=== PATIENT | female | born 1960 | race Hispanic/Latino ===

== ENCOUNTER 2017-02-24 22:50 | Inpatient (IN) | payer BC, OTHER ==
[2017-02-24 23:45] LABS: Hematocrit 29.2 % (36.0-47.0); Mean Platelet Volume 6.5 fL (7.4-10.4); Red Blood Cell (RBC) Count 2.68 mill/uL (4.20-5.40); White Blood Cell (WBC) Count 13.6 thou/uL (4.8-10.8)
[2017-02-24 23:53] LABS: PTT 48.1 SEC (22.9-36.1); Prothrombin Time 14.8 SEC (12.0-14.7)
--- NOTE | 2017-02-24 23:58 | RAD ---
CHEST ONE VIEW: History: Abdominal pain, bleeding. Comparison: 06-17-15 FINDINGS: The cardiac silhouette is magnified by projection. Pulmonary vasculature is unremarkable. Minimal sca rring is present at each lung base. There is no lobar consolidation or evidence of pneumothorax. IMPRESSION: 1. No active cardiopulmonary abnormalities are demonstrated. POS: [facility]
[2017-02-25] LABS: #Basophils 0.1 thou/uL (0.0-0.2); #Eosinphils 0.1 thou/uL (0.0-0.7); #Lymphocytes 1.9 thou/uL (1.20-3.40); #Monocytes 0.8 thou/uL (0.11-0.59); #Neutrophils 10.7 thou/uL (1.40-6.50); %Basophils 0.8 % (0.0-1.0); %Eosinophils 0.9 % (0.0-10.0); %Lymphocytes 14.2 % (21.0-51.0); %Monocytes 5.6 % (0.0-10.0); Macrocytosis SLIGHT = 6-15 cells (100X) (0-5/hpf)
[2017-02-25 00:03] LABS: ALT (SGPT) 41 U/L (8-55); AST (SGOT) 122 U/L (5-34); Alkaline Phosphatase 416 U/L (40-150); Anion Gap 23 mmol/L (10-20); BUN (Urea Nitrogen) 9 mg/dL (9.8-20.1); Bilirubin, Total 9.7 mg/dL (0.2-1.2); Calc. Creatinine Clearance 0 mL/min (70-130); Calcium 8.1 mg/dL (7.8-10.44); Carbon Dioxide 20 mmol/L (22-29); Chloride 97 mmol/L (98-107); Estimated GFR-MDRD 82; Globulin 4.2 g/dL (2.4-3.5); Lipase 124 U/L (8-78); Magnesium 1.1 mg/dL (1.6-2.6); Protein, Total 7.6 g/dL (6.0-8.3)
[2017-02-25] MEDS ORDERED: Dextrose 50% Abboject 50 ML SYRINGE ONE (00:25)
[2017-02-25] MEDS ORDERED: Magnesium Sulfate 2 GM/100 ML BAG ONE (00:25)
[2017-02-25] MEDS ORDERED: Potassium Chloride 20 MEQ TAB ONE (00:25)
[2017-02-25] MEDS ORDERED: Potassium Chloride 20 MEQ/100 ML PREMIX BAG ONE ×2 (00:25→01:56)
[2017-02-25] MEDS ORDERED: Dextrose 50% Abboject 50 ML SYRINGE SLOW IVP PRN (01:51)
[2017-02-25] MEDS ORDERED: Dextrose 5% in Water 1,000 ML IV PRN (01:51)
[2017-02-25 01:59] LABS: #Basophils 0.1 thou/uL (0.0-0.2); #Eosinphils 0.1 thou/uL (0.0-0.7); #Lymphocytes 1.8 thou/uL (1.20-3.40); #Monocytes 0.7 thou/uL (0.11-0.59); #Neutrophils 8.8 thou/uL (1.40-6.50); %Basophils 0.8 % (0.0-1.0); %Lymphocytes 15.7 % (21.0-51.0); %Monocytes 6.1 % (0.0-10.0); Hematocrit 27.5 % (36.0-47.0); Mean Platelet Volume 6.5 fL (7.4-10.4); Red Blood Cell (RBC) Count 2.53 mill/uL (4.20-5.40); White Blood Cell (WBC) Count 11.5 thou/uL (4.8-10.8)
[2017-02-25 02:27] LABS: Lactic Acid - Sepsis 3.1 mmol/L (0.5-2.2)
[2017-02-25 02:30] LABS: Anion Gap 20 mmol/L (10-20); BUN (Urea Nitrogen) 8 mg/dL (9.8-20.1); Calc. Creatinine Clearance 0 mL/min (70-130); Carbon Dioxide 21 mmol/L (22-29); Chloride 101 mmol/L (98-107); Estimated GFR-MDRD 85; Magnesium 2.3 mg/dL (1.6-2.6); Phosphorus 2.2 mg/dL (2.3-4.7)
[2017-02-25] MEDS ORDERED: Vancomycin HCl 1 GM in Premix Bag 1 BAG IVPB SCH (02:30)
[2017-02-25] MEDS ORDERED: Potassium Chloride 20 MEQ in Premix Bag 1 BAG IVPB SCH (02:45)
[2017-02-25 03:12] VITALS: BMI 21.8
--- NOTE | 2017-02-25 04:18 | HP ---
PRIMARY CARE PHYSICIAN: None. CHIEF COMPLAINT: Rectal bleeding. HISTORY OF PRESENT ILLNESS: Ms. Green is a pleasant 57-year-old lady who was seen at [facility] on 02/25/2017. She used to work as a nurse at this hospital. Her son 4 ye ars ago and her 2 years ago. Since then, she has been ingesting a lot of alcohol. She is currently not working. Two days ago, she decided to decrease her alcohol consumption. However, she became nauseous yesterda y and vomited. Today morning, she found that she was having a lot of rectal bleeding. She describes bright red blood. She therefore came to the emergency room. She reports that over the last several months, she has not been eating well. She reports that she do es not like the taste of meat. REVIEW OF SYSTEM The following complete review of systems was negative, unless otherwise mentioned in the HPI or below : Constitutional: Weight loss or gain, sense of well-being, ability to conduct usual activities, exerc ise tolerance. Skin/Breast: Rash, itching, changes in hair growth or loss, nail changes, breast lumps, tenderness, swelling, nipple discharge. Eyes: Vision, double vision, tearing, blind spots, pain. ENT/Mouth: Headaches (location, time of onset, duration, precipitating factors), vertigo, lightheade dness, injury. Vision, double vision, tearing, blind spots, pain, nose bleeding, colds, obstruction, discharge, dental difficulties, gingival bleeding, dentures, neck stiffness, pain, tenderness, jarret s in thyroid or other areas. Cardiovascular: Precordial pain, substernal distress, palpitations, syncope, dyspnea on exertion, or thopnea, nocturnal paroxysmal dyspnea, edema, cyanosis, hypertension, heart murmurs, varicosities, ph lebitis, claudication. Respiratory: Pain, shortness of breath, wheezing, stridor, cough, hemoptysis, fever or night sweats. Gastrointestinal: Poor appetite, dysphagia, indigestion, abdominal pain, heartburn, eructation, naus ea, vomiting, hematemesis, jaundice, constipation, or diarrhea, abnormal stools (leticia-colored, tarry, bloody, greasy, foul smelling), flatulence, hemorrhoids, recent changes in bowel habits. Genitourinary: Urgency, frequency, dysuria, nocturia, hematuria, polyuria, oliguria, unusual (or lenora nge in) color of urine, stones, hesitancy, change in size of stream, dribbling, acute retention or in continence, libido, potency. Musculoskeletal: Pain, swelling, redness or heat of muscles or joints, limitation, of motion, muscul ar weakness, atrophy, cramps. Neurologic/Psychiatric: Convulsions, paralyses, tremor, incoordination, paresthesias, difficulties w ith memory of speech, sensory or motor disturbances, or muscular coordination (ataxia, tremor), emoti onal problems, anxiety, depression, previous psychiatric care, unusual perceptions, hallucinations. Allergy/Immunologic: Skin rash, anemia, bleeding tendency, polydipsia, polyuria, intolerance to heat or cold. PAST MEDICAL HISTORY: Significant for asthma, hypothyroidism, hernia, H. pylori infection, and Clost ridium difficile colitis. PAST SURGICAL HISTORY: Significant for hernia repair and tubal ligation. PSYCHIATRIC HISTORY: Significant for depression. FAMILY HISTORY: Significant for lung cancer in her father. SOCIAL HISTORY: The patient reports drinking alcohol on a daily basis. She smokes half a pack of ci garettes a day. She denies recreational drug use. ALLERGIES: AVELOX, BACTRIM, CEFTRIAXONE, LEVOTHYROXINE, MOXIFLOXACIN, NICOTINE, QUINOLONES and ROCEP HIN. CURRENT MEDICATIONS: Include Synthroid 137 mcg daily, Effexor 150 mg daily, ProAir one puff every 8 hours as needed, Lasix 20 mg daily, and Aldactone 25 mg daily. PHYSICAL EXAMINATION: GENERAL: On examination, Ms. Green is awake and alert, not in acute distress. VITAL SIGNS: Blood pressure is 109/67, pulse is 79, she is breathing at rate of 18, and saturating 9 8% on room air. She is afebrile. She weighs 59 kilograms. EYES: The patient has scleral icterus, no conjunctival pallor. ENT: Moist mucosal membranes, no oropharyngeal erythema or exudates. NECK: Supple, nontender, normal range of movement. Trachea is midline. RESPIRATORY: Accessory muscles of breathing are not active. Chest wall movements are symmetrical bi laterally. Lungs are clear to auscultation without wheeze, rhonchi or crepitations. CARDIOVASCULAR: S1 and S2 are heard, regular. Peripheral pulses palpable. No carotid bruit, no per icardial rub. ABDOMEN: Distended, nontender, she has hepatomegaly, no splenomegaly, bowel sounds are heard. NEUROLOGIC: Cranial nerves II-XII are intact, deep tendon reflexes 2+. No flapping tremor. MUSCULOSKELETAL: Power is 5/5 in all 4 extremities. Normal range of movement at all major extremity joints. She appears to have decreased muscle mass in her extremities. SKIN: She has multiple skin lesions over her scalp and trunk, appear to be scabs as well as open wou nds, not draining pus at this time. PSYCHIATRIC: Normal mood, normal affect, patient is oriented to person, place, and time. LYMPHATIC: No cervical lymphadenopathy. LABORATORY DATA AND IMAGING: Ms. Green's labs and investigations were reviewed. She had an electr ocardiogram, which showed normal sinus rhythm, no ST changes to suggest an acute coronary syndrome. She also had a chest x-ray, which did not show any pulmonary infiltrates. Laboratory investigations show leukocytosis with 13,600 white cells, of which 78.4% are neutrophils, hemoglobin 9.7, last known hemoglobin 9.2 in 09/2016, normal platelet count, INR 1.1, normal sodium, decreased potassium of 2.9 , elevated anion gap of 23, decreased carbon dioxide level of 20, decreased glucose level of 47, norm al creatinine, decreased magnesium of 1.1, elevated total bilirubin of 9.7, elevated AST of 122, norm al ALT, elevated alkaline phosphatase of 416, decreased albumin of 3.4 and elevated lipase of 124. ASSESSMENT AND PLAN: Ms. Green is a pleasant 57-year-old lady who was seen at [facility] on 02/25/2017. Her problem list includes: 1. Rectal bleeding: Etiology is unclear. She does have a history of hemorrhoids. We will admit he r to the hospital and recheck her hemoglobin. GI Service has been consulted by the emergency room ph ysician. This appears to be a lower gastrointestinal bleed. At this point in time, I am not startin g her on Protonix or octreotide. 2. Hypokalemia: Potassium will be replaced and rechecked. 3. Hypomagnesemia: We will replace magnesium and recheck. 4. Hypoglycemia: Most likely secondary to liver disease. We will monitor Accu-Cheks for now. 5. Skin lesions: Probable Staphylococcal lesions. We will start her on empiric doxycycline. 6. History of alcohol abuse: We will start her on ASE protocol. 7. History of tobacco abuse: The patient has been counseled regarding tobacco and alcohol cessation . She appears to be allergic to NICOTINE, we will not start her on replacement therapy at this time. 8. Elevated anion gap: We will check lactate level. 9. Asthma: Appears to be stable. 10. Hypothyroidism: Check TSH level. Continue Synthroid. LEVEL OF RISK: Moderate. LEVEL OF COMPLEXITY: Moderate.
[2017-02-25] MEDS ORDERED: Lorazepam 0.5 MG TAB PO SCH (04:45)
[2017-02-25] MEDS ORDERED: POTASSIUM CHLORIDE IVPB SCH (08:15)
[2017-02-25] MEDS ORDERED: FLU VACC QS2017-18 36 mo. & older 0.5 ML SYRINGE IM ONE (09:00)
[2017-02-25 09:43] LABS: Hematocrit 24.6 % (36.0-47.0)
--- NOTE | 2017-02-25 10:24 | PDOC.EVN ---
Event Note - Event Note Event Note: Pt seen on rounds. admitted fredis with hematochezia. Pt states shehad a colonoscopy 2 months ago and asked if this could be done as an outpatient. i explained her Hgb drop and urged her to see what GI has to say first. i favor repeat since she now has bleeding. Pt agreed not to leave AMA for now. followup on GI results. hgb 9.7 to 9.1 since presentation
[2017-02-25] MEDS ORDERED: Ondansetron HCl/PF 4 MG/2 ML Vial IVP PRN (11:58)
[2017-02-25] MEDS ORDERED: Diazepam 5 MG TAB PO PRN (16:13)
[2017-02-25] MEDS ORDERED: Lorazepam 1 MG TAB PO PRN (16:15)
[2017-02-25] MEDS ORDERED: Thiamine HCl 200 MG/2 ML VIAL IM SCH (16:15)
[2017-02-25] MEDS ORDERED: Diazepam 5 MG TAB PO SCH (16:15)
[2017-02-25] MEDS ORDERED: Morphine PF 1 MG/ML SYR IVP PRN (16:17)
[2017-02-25 17:46] LABS: Hematocrit 26.7 % (36.0-47.0)
--- NOTE | 2017-02-25 20:39 | CON ---
DATE OF CONSULTATION: 02/25/2017 REQUESTING PHYSICIAN: Dr. Maria. REASON FOR CONSULTATION: Rectal bleeding. HISTORY OF PRESENT ILLNESS: Monse Green is a 57-year-old woman whom I first met over a year ago. She has had a rough several years with multiple deaths in the family and this turned to alcohol. O sandra the past year, it has become evident that she has developed alcoholic liver disease. She was adm itted here in September and had some ascites at that time underwent paracentesis, all consistent with alco holic liver disease without SBP. She was started on low dose diuretics. She has felt chronic anemia this year as well, her baseline hemoglobin is running in the 8-9 range. This is a macrocytic anemia , undoubtedly from alcohol toxicity and relatively poor nutrition. I did perform EGD and colonoscopy on her in the outpatient setting on 11/04/2016. The EGD showed some mild erosive gastritis, but no esophageal or gastric varices. The colonoscopy showed 2 polyps, which were removed as well as intelligence intern al hemorrhoids and was otherwise negative. Unfortunately, the patient has continued to drink alcohol. She quit for about 20 days, but for the p ast several weeks she has again been having anywhere from half a pint to a full pint of vodka. She i s trying to taper down slowly, but this does not really seem to be working. She says that her appeti te has just been poor in general for about the past month. A couple of days ago, she had an episode of rectal bleeding, this does happen off and on, usually associated with some mild perianal discomfor t and then yesterday she had some nausea and an episode of emesis, so presented here. She was found to be hypokalemic with potassium only 2.5. Initial hemoglobin was 9.7, but after some IV fluids, thi s went to 9.1 and further declined to 8.1 this morning. FOBT was positive. Her LFTs remain elevated to a greater degree than before with total bilirubin now up to 9.7, though INR and creatinine remain normal. Currently, she says she is feeling okay. She has not had any overt bleeding since arrival here. She is feeling hungry. She is actually wanting to leave the hospital. REVIEW OF SYSTEMS: Full review of systems including constitutional, head, eyes, ears, nose, throat, GI, , cardiovascular, respiratory, musculoskeletal, and neurologic systems is negative except as no eliane in the HPI. PAST MEDICAL HISTORY: Hypertension, depression, asthma, hypothyroidism, ongoing alcohol abuse, herni a surgery, prior history of H. pylori and peptic ulcer disease as a teenager, mild erosive gastritis on EGD 11/2016, colon polyps on 11/2016, internal hemorrhoids demonstrated on 11/2016, tubal ligation , and C. difficile colitis. FAMILY HISTORY: Positive for lung cancer, negative for liver disease. SOCIAL HISTORY: She smokes half pack of cigarettes per day. She continues to drink alcohol anywhere from half a pint to a full pint of vodka daily. No drug use. ALLERGIES: AVELOX, BACTRIM, CEFTRIAXONE, LEVOTHYROXINE, MOXIFLOXACIN, NICOTINE, QUINOLONES, and ROCE PHIN. OUTPATIENT MEDICATIONS: Synthroid 137 mcg daily, Effexor 150 mg daily, albuterol as needed, Lasix 20 mg daily, spironolactone 25 mg daily. PHYSICAL EXAMINATION: VITAL SIGNS: Temperature 98.8, blood pressure 110/59, pulse 81, 96% oxygen saturation on room air. GENERAL: Jaundiced 57-year-old woman, lying in bed comfortably, in no distress. MENTAL: She is alert and fully oriented, pleasant, conversational. SKIN: She has jaundice. EYES: Scleral icterus. Extraocular movements are intact. ENT: Mucous membranes moist, no oral lesions. LYMPH: No submandibular or supraclavicular lymphadenopathy. THYROID: Nontender to palpation. HEART: Regular rate and rhythm. LUNGS: Clear to auscultation bilaterally. ABDOMEN: Nondistended. There is some dullness to percussion in the flanks, which is likely that she has a small amount of ascites fluid. Nontender to palpation throughout. EXTREMITIES: No peripheral edema. VESSELS: Radial pulses 2+ bilaterally. NEUROLOGICAL: Cranial nerves II-XII intact bilaterally. No focal deficits. No asterixis. LABORATORY STUDIES: Hemoglobin initially 9.7, now 8.1 this morning. MCV elevated to 109. WBC 11.5, platelets 258. FOBT positive. Lipase 124, total bilirubin 9.7, alkaline phosphatase 416, AST 122, ALT 41, albumin 3.4. INR is only 1.1, lactic acid 2.3, sodium 139, potassium 2.5, BUN 8, creatinine 0.71. MELD score calculates out to 16. ASSESSMENT AND PLAN: 1. Chronic anemia. 2. Rectal bleeding. 3. Internal hemorrhoids. Overall, the patient's hemoglobin this presentation remains within her bas kelley, over the past year, which is in the 8-9 range. She has not had any significant overt bleeding since her arrival and she states that the rectal bleeding was mainly a couple of days ago. She had a recent endoscopy just 3 months ago with no colonic findings other than a couple of colon polyps and internal hemorrhoids. This is too late for post-polypectomy bleed. My impression is that her recen t bleeding has been hemorrhoidal in nature. We will not plan on any endoscopic investigations at thi s time. I do think she should stay the night and we should recheck H&H tomorrow. If stable, then no endoscopic investigation would be planned. 4. Alcoholic liver disease. This is a significant problem for her. She has been unable to stop dri nking despite multiple conversations over the past few months. LFTs remain elevated to a greater deg ree than last summer. That being said, it appears her liver synthetic function is good with normal I NR, albumin 3.4. Her renal function is preserved. There is no encephalopathy. There was no evidenc e of esophageal or gastric varices on recent EGD. I would recommend continuing on Lasix and spironol actone, but bumping up the spironolactone dose to 50 mg daily. This will hopefully help with her hyp okalemia as well. Obviously, the main thing would be to quit drinking alcohol completely. I was sandra y firm with her on this. I worry that her presentation will be far more severe if she continues like this. If H&H is stable tomorrow and no further new issues, then she could be potentially discharged from a GI perspective.
[2017-02-25] MEDS: Doxycycline 100 MG CAP PO SCH (21:51)
[2017-02-26] MEDS ORDERED: Diazepam 5 MG TAB PO PRN (04:00)
[2017-02-26] MEDS: Doxycycline 100 MG CAP PO SCH (05:24)
[2017-02-26 06:17] LABS: ALT (SGPT) 45 U/L (8-55); AST (SGOT) 158 U/L (5-34); Alkaline Phosphatase 453 U/L (40-150); Anion Gap 14 mmol/L (10-20); BUN (Urea Nitrogen) 5 mg/dL (9.8-20.1); Calc. Creatinine Clearance 71 mL/min (70-130); Calcium 8.7 mg/dL (7.8-10.44); Carbon Dioxide 23 mmol/L (22-29); Chloride 103 mmol/L (98-107); Estimated GFR-MDRD 78; Globulin 3.9 g/dL (2.4-3.5); Magnesium 1.3 mg/dL (1.6-2.6)
[2017-02-26] MEDS ORDERED: Folic Acid 1 MG TAB PO SCH (09:00)
[2017-02-26] MEDS ORDERED: Multivitamin W/ Minerals 1 TAB PO SCH (09:00)
[2017-02-26] MEDS ORDERED: Magnesium Oxide 400 MG TAB PO SCH (09:00)
[2017-02-26 12:12] VITALS: BP 123/67; TEMP 98.6
--- NOTE | 2017-02-27 01:53 | DIS ---
DISCHARGE DIAGNOSES: 1. Rectal bleeding, likely secondary to internal hemorrhoids. 2. Hypokalemia. 3. Hypomagnesemia. 4. Hypoglycemia, resolved. 5. Skin lesion. 6. History of alcohol abuse. 7. History of tobacco abuse. 8. Transaminitis secondary to alcohol abuse. 9. Elevated anion gap. 10. Hypothyroidism. 11. Asthma. HOSPITAL COURSE: While patient was in the hospital, the patient had her hemoglobin monitored while s he was here in the hospital. GI was also consulted for their expertise. The patient had actually un derwent an endoscopy approximately 3 months ago. Therefore, because of these and the high suspicious for internal hemorrhoids, GI felt there was not needed to do any further intervention at this time o ther than monitoring H and H overnight. The patient also was found to have hypoglycemia, which was t hought to be due to her liver disease, which had resolved. She also showed up with electrolyte abnor malities, which were corrected while she was here in the hospital. We continued to watch the patient 's H and H throughout the night for which stayed within normal range. GI was comfortable with sendin g her home pending stable H and H the following morning, which it was. The patient denied having any new symptoms, and there were no new findings on the day of discharge. Because the patient was doing quite well and there was no further rectal bleeding, we were comfortable discharging the patient parrish e to follow up with her primary care physician. Due to her liver disease, patient will have her [place] ctone increased. She was also educated on the importance of sticking to a strict diet as well as sta davey away from alcohol and being compliant with her medication as well as her followups as an outpati ent. She stated that she understood and agreed with everything that was discussed with her. All que stions were answered prior to discharge. DISCHARGE CONDITION: Improved when she first came in. DISCHARGE ACTIVITY: As tolerated. DISCHARGE DIET: Low salt diet. DISCHARGE MEDICATIONS: Please see discharge medication list. FOLLOWUP APPOINTMENT: The patient will follow up with her primary care physician in 1 week as well a s GI as per their recommendations. DISCHARGE TIME: Discharge time is greater than 30 minutes.
== END 2017-02-26 12:54 | disposition home or self-care (01) | DRG 395 ==
LOC: ERS 22:50 → 2NO 02-25 00:15
PROVIDERS: ADMIT Internal Medicine; ATTEND Internal Medicine
DX: K64.8 Other hemorrhoids (principal); E83.42 Hypomagnesemia; K70.9 Alcoholic liver disease, unspecified; E87.6 Hypokalemia; E16.2 Hypoglycemia, unspecified; F10.10 Alcohol abuse, uncomplicated; F17.210 Nicotine dependence, cigarettes, uncomplicated; E03.9 Hypothyroidism, unspecified; J45.909 Unspecified asthma, uncomplicated; L98.9 Disorder of the skin and subcutaneous tissue, unspecified; Z88.1 Allergy status to other antibiotic agents; Z88.8 Allergy status to other drugs, medicaments and biological substances
CPT/HCPCS: 36415; 36416; 71010; 80048; 80053; 82274; 83605; 83690; 83735; 84100; 85025; 85610; 85730; 86850; 86900; 86901; 90471; 90682; 90732; 93005; 96365; 96375; A4216; G0008; G0009; J3370; J3475; J3480; J7050; Q2036

== ENCOUNTER 2017-06-17 17:44 | Emergency (ER) | payer BC ==
[2017-06-17 18:18] LABS: #Basophils 0.1 thou/uL (0.0-0.2); #Eosinphils 0.1 thou/uL (0.0-0.7); #Lymphocytes 1.5 thou/uL (1.20-3.40); #Monocytes 0.7 thou/uL (0.11-0.59); #Neutrophils 9.2 thou/uL (1.40-6.50); %Basophils 0.8 % (0.0-1.0); %Eosinophils 0.7 % (0.0-10.0); %Lymphocytes 12.8 % (21.0-51.0); %Monocytes 5.8 % (0.0-10.0); %Neutrophils 79.9 % (42.0-75.0); Hemoglobin 11.8 g/dL (12.0-16.0); Mean Corpuscular HGB CONC 34.2 g/dL (32.0-36.0); Mean Corpuscular Hemoglobin 33.5 pg (27.0-31.0); Mean Corpuscular Volume 97.8 fl (81.0-99.0); Mean Platelet Volume 6.8 fL (7.4-10.4); Platelet Count 249 thou/uL (130-400); RBC Distribution Width 13.5 % (11.5-14.5); Red Blood Cell (RBC) Count 3.52 mill/uL (4.20-5.40); White Blood Cell (WBC) Count 11.5 thou/uL (4.8-10.8)
[2017-06-17 18:27] LABS: INR-International Normal Ratio 1.1; Prothrombin Time 14.4 SEC (12.0-14.7)
[2017-06-17 18:37] LABS: Alcohol 301 mg/dL (Less than 10); Anion Gap 19 mmol/L (10-20); BUN (Urea Nitrogen) 9 mg/dL (9.8-20.1); Calc. Creatinine Clearance 0 mL/min (70-130); Calcium 9.6 mg/dL (7.8-10.44); Carbon Dioxide 20 mmol/L (22-29); Chloride 104 mmol/L (98-107); Estimated GFR-MDRD 71; Glucose 107 mg/dL (70-105); Potassium 3.7 mmol/L (3.5-5.1); Sodium 139 mmol/L (136-145)
--- NOTE | 2017-06-17 18:40 | RAD ---
FRONTAL AND LATERAL IMAGING OF THE THORACIC SPINE: 06/17/17 COMPARISON: None. HISTORY: Fell off of a ladder. FINDINGS: Thoracic vertebral body height and alignment appears within normal limits. No anterolisthesis or retr olisthesis. No displaced fracture noted. IMPRESSION: No acute findings. POS: [facility]
--- NOTE | 2017-06-17 18:42 | RAD ---
TWO VIEWS OF THE LUMBAR SPINE: 06/17/17 COMPARISON: None. HISTORY: Fall with pain. FINDINGS: Five lumbar type vertebral bodies are present with intact pedicles on frontal imaging. Lateral imaging demonstrates normal vertebral body height and alignment aside from minimal anterior w edging of L1, likely on the basis of prior fracture or physiologic wedging. There is facet hypertroph y at the L5-S1 level. IMPRESSION: No evidence for acute fracture. POS: [facility]
--- NOTE | 2017-06-17 18:44 | RAD ---
THREE VIEWS OF THE SACRUM AND COCCYX: 06/17/17 COMPARISON: None. HISTORY: Fall, trauma, pain. FINDINGS: No widening of the sacroiliac joints of the pubic symphysis. The pelvic ring appears intact. The femo ral h patricia project normally over their respective acetabulum. No displaced fracture noted. IMPRESSION: No displaced fracture seen. POS: [facility]
--- NOTE | 2017-06-17 19:35 | CT ---
HEAD CT WITHOUT CONTRAST: DATE: 06/17/17. COMPARISON: 06/17/15. HISTORY: Trauma. TECHNIQUE: Serial axial CT imaging at 5 mm intervals from the vertex through the skull base without contrast. FINDINGS: Paranasal sinuses and mastoid air cells are well aerated. There is evidence of bilateral paranasal s inus surgery, stable. There is no displaced calvarial fracture. No intracranial hemorrhage, midline shift, or mass effect. Mild diffuse cerebral volume loss, stable . IMPRESSION: No intracranial hemorrhage or displaced calvarial fracture. POS: [facility]
--- NOTE | 2017-06-17 19:54 | CT ---
CERVICAL SPINE CT NONCONTRAST: 06/17/17 INDICATION: Posttraumatic injury, pain. FINDINGS: There is straightening of the normal cervical curvature. Craniocervical junction is intact. There is mild degenerative change present. IMPRESSION: No acute osseous abnormality cervical spine. POS: [facility]
== END 2017-06-17 19:35 | disposition home or self-care (01) ==
LOC: ERS 17:44
DX: S09.90XA Unspecified injury of head, initial encounter (principal); S30.0XXA Contusion of lower back and pelvis, initial encounter; F10.129 Alcohol abuse with intoxication, unspecified; J45.909 Unspecified asthma, uncomplicated; E03.9 Hypothyroidism, unspecified; F32.9 Major depressive disorder, single episode, unspecified; F17.200 Nicotine dependence, unspecified, uncomplicated; Z79.899 Other long term (current) drug therapy; Z71.6 Tobacco abuse counseling; W11.XXXA Fall on and from ladder, initial encounter
CPT/HCPCS: 36415; 70450; 72070; 72100; 72125; 72220; 80048; 80307; 85025; 85610; 99406

== ENCOUNTER 2017-06-24 00:32 | Emergency (ER) | payer BC ==
[2017-06-24 01:14] LABS: #Basophils 0.1 thou/uL (0.0-0.2); #Lymphocytes 2.3 thou/uL (1.20-3.40); #Monocytes 0.7 thou/uL (0.11-0.59); #Neutrophils 7.1 thou/uL (1.40-6.50); %Basophils 0.8 % (0.0-1.0); %Eosinophils 0.3 % (0.0-10.0); %Lymphocytes 22.3 % (21.0-51.0); %Monocytes 6.7 % (0.0-10.0); %Neutrophils 69.9 % (42.0-75.0); Hemoglobin 12.4 g/dL (12.0-16.0); Mean Corpuscular Hemoglobin 32.9 pg (27.0-31.0); Mean Corpuscular Volume 96.9 fl (81.0-99.0); Mean Platelet Volume 6.2 fL (7.4-10.4); Platelet Count 182 thou/uL (130-400); RBC Distribution Width 13.5 % (11.5-14.5); Red Blood Cell (RBC) Count 3.75 mill/uL (4.20-5.40); White Blood Cell (WBC) Count 10.2 thou/uL (4.8-10.8)
[2017-06-24 01:29] LABS: Acetaminophen Less than 6.0 mcg/mL (10.0-30.0); Alcohol 330 mg/dL (Less than 10); Salicylate Less than 8.0 mg/dL (15.0-30.0)
[2017-06-24 01:34] LABS: ALT (SGPT) 31 U/L (8-55); AST (SGOT) 101 U/L (5-34); Albumin 4.1 g/dL (3.5-5.0); Alkaline Phosphatase 332 U/L (40-150); Anion Gap 17 mmol/L (10-20); BUN (Urea Nitrogen) 9 mg/dL (9.8-20.1); Bilirubin, Total 2.1 mg/dL (0.2-1.2); Calc. Creatinine Clearance 0 mL/min (70-130); Calcium 10.1 mg/dL (7.8-10.44); Carbon Dioxide 26 mmol/L (22-29); Chloride 105 mmol/L (98-107); Estimated GFR-MDRD 73; Globulin 4.3 g/dL (2.4-3.5); Glucose 85 mg/dL (70-105); Potassium 3.7 mmol/L (3.5-5.1); Protein, Total 8.4 g/dL (6.0-8.3); Sodium 144 mmol/L (136-145)
[2017-06-24 01:51] LABS: Bilirubin Negative (Negative); Blood, Urine Negative (Negative); Clarity CLEAR (Clear); Glucose, Urine (Dipstick) Negative (Negative); Leukocyte Negative (Negative); Nitrite Negative (Negative); Protein, Urine (Dipstick) Negative (Neg-Trace); Specific Gravity, Urine 1.006 (1.002-1.036); Urobilinogen 0.2 mg/dL (0.2-1.0); pH, Urine 6.5 (5.0-9.0)
[2017-06-24 01:59] LABS: Medtox Reader # READER 1; THC/Cannabinoid Screen Detected (NotDetected)
[2017-06-24 02:00] LABS: Amphetamine Not Detected (NotDetected); Barbiturates Screen Not Detected (NotDetected); Benzodiazepine Screen Detected (NotDetected); Cocaine Metabolite Screen Not Detected (NotDetected); Medtox Control Line Valid? VALID (VALID); Methadone Not Detected (NotDetected); Methamphetamine Not Detected (NotDetected); Opiate Screen Not Detected (NotDetected); Oxycodone Screen Not Detected (NotDetected); Phencyclidine (PCP) Not Detected (NotDetected); Tricyclic Screen Not Detected (NotDetected)
[2017-06-24] MEDS ORDERED: Ibuprofen 200 MG TAB ONE (02:49)
--- NOTE | 2017-06-24 07:40 | CT ---
PRELIMINARY REPORT/[facility]/EMERGENCY AFTER HOURS PROCEDURE: EXAM: CT Head Without Intravenous Contrast EXAM DATE/TIME: Exam ordered 06/24/2017 1:41 AM CLINICAL HISTORY: 57 years old, female; Injury or trauma; Fall; Follow-up exam; Abrasion; Not specified; Patient HX: Er 8; , Headache; Patient reports recent fall and evaluation in er. Presents today due to concern for " blood clots in head". Denies fall since time of discharge. Denies si/hi. HX of alcoholism, no HX of w ithdrawls/dts/seizures. Last drink at 2300 today. Drinks 1/2 liter of hard liquor per day. TECHNIQUE: Axial computed tomography images of the head/brain without intravenous contrast. COMPARISON: No relevant prior studies available. FINDINGS: Brain: Mild generalized volume loss of the brain. No hemorrhage. No significant white matter disease. Ventricles: Unremarkable. No ventriculomegaly. Bones/joints: Unremarkable. No acute fracture. Soft tissues: Unremarkable. Sinuses: Unremarkable as visualized. No acute sinusitis. Mastoid air cells: Unremarkable as visualized. No mastoid effusion. IMPRESSION: No acute findings. Thank you for allowing us to participate in the care of your patient. Dictated and Authenticated by: Yehuda Alvarez MD 06/24/2017 2:20 AM Central Time ([place] & [place]) FINAL INTERPRETATION HEAD CT WITHOUT CONTRAST: 06/24/2017 COMPARISON: 06/17/2017 HISTORY: Trauma, pain, fall. FINDINGS: I agree with the preliminary [facility] report by Dr. Alvarez. Imaged paranasal sinuses/mastoid air cells are well-aerated. No displaced calvarial fracture. There is no intracranial hemorrhage, midline shift, or mass effect. There is mild cerebral volume loss. IMPRESSION: No intracranial hemorrhage or displaced calvarial fracture. Code QA. POS: [facility]
--- NOTE | 2017-06-24 07:54 | CT ---
PRELIMINARY REPORT/[facility]/EMERGENCY AFTER HOURS PROCEDURE: EXAM: CT Cervical Spine Without Intravenous Contrast EXAM DATE/TIME: Exam ordered 06/24/2017 1:39 AM CLINICAL HISTORY: 57 years old, female; Injury or trauma; Fall; Follow-up exam; Abrasion; Patient HX: Er 8; , Headache; Patient reports recent fall and evaluation in er. Presents today due to concern for "blood clots in head". Denies fall since time of discharge. Denies si/hi. HX of alcoholism, no HX of withdrawls/dts/seizures. Last drink at 2300 today. Drinks 1/2 liter of hard liquor per day. TECHNIQUE: Axial computed tomography images of the cervical spine without intravenous contrast. Coronal and sagittal reformatted images were created and reviewed. COMPARISON: No relevant prior studies available. FINDINGS: Vertebrae: Unremarkable. No acute fracture. Discs/spinal canal/neural foramina: No acute findings. No spinal canal stenosis. Soft tissues: Unremarkable. Lung apices: Unremarkable as visualized. IMPRESSION: Normal cervical spine CT. Thank you for allowing us to participate in the care of your patient. Dictated and Authenticated by: Yehuda Alvarez MD 06/24/2017 2:17 AM Central Time ([place] & [place]) FINAL REPORT EXAM: CT CERVICAL SPINE WITHOUT CONTRAST COMPARISON: 06/17/2017 TECHNIQUE: Noncontrast cervical spine CT is performed in the axial plane. Sagittal and coronal reformatted imag es are submitted for interpretation. FINDINGS: This report is in agreement with the preliminary report by [facility]. Cervical alignment and vertebral bod y height is maintained. No fracture. No significant interval change. POS: [facility]
== END 2017-06-24 03:00 | disposition home or self-care (01) ==
LOC: ERS 00:32
DX: G44.309 Post-traumatic headache, unspecified, not intractable (principal); F10.229 Alcohol dependence with intoxication, unspecified; F41.9 Anxiety disorder, unspecified; J45.909 Unspecified asthma, uncomplicated; E03.9 Hypothyroidism, unspecified; F32.9 Major depressive disorder, single episode, unspecified; F17.210 Nicotine dependence, cigarettes, uncomplicated; Z79.899 Other long term (current) drug therapy; Y90.8 Blood alcohol level of 240 mg/100 ml or more
CPT/HCPCS: 36415; 70450; 72125; 80053; 80306; 80307; 81003; 82140; 85025; 96360; 96361

== ENCOUNTER 2017-10-25 01:54 | Emergency (ER) | payer BC, SELFPAY ==
--- NOTE | 2017-10-25 09:29 | RAD ---
PA CHEST AND 2 VIEWS LEFT RIBS: Date: 10/25/17 PROVIDED CLINICAL HISTORY: Pain status post injury. FINDINGS: Comparison made with chest radiograph dated 02/24/17. Cardiac and mediastinal silhouette is within normal limits. No focal consolidation, pleural fluid, or pneumothorax apparent. No evidence for displaced left-sided rib fracture. IMPRESSION: No evidence for an acute process. POS: [facility]
== END 2017-10-25 06:15 | disposition left against medical advice (07) ==
LOC: ERS 01:54
DX: Z53.21 Procedure and treatment not carried out due to patient leaving prior to being seen by health care provider (principal)
CPT/HCPCS: 93005

== ENCOUNTER 2018-05-16 10:04 | Emergency (ER) | payer SELFPAY ==
[2018-05-16] MEDS ORDERED: Fentanyl 100 MCG/2 ML VIAL ONE (10:40)
[2018-05-16] MEDS ORDERED: Ondansetron PF 4 MG/2 ML Vial ONE (10:40)
[2018-05-16 10:59] LABS: #Basophils 0.1 thou/uL (0.0-0.2); #Eosinphils 0.1 thou/uL (0.0-0.7); #Lymphocytes 1.4 thou/uL (1.20-3.40); #Monocytes 0.6 thou/uL (0.11-0.59); #Neutrophils 5.8 thou/uL (1.40-6.50); %Basophils 1.3 % (0.0-1.0); %Eosinophils 0.8 % (0.0-10.0); %Lymphocytes 17.9 % (21.0-51.0); %Monocytes 7.6 % (0.0-10.0); %Neutrophils 72.5 % (42.0-75.0); Hemoglobin 10.8 g/dL (12.0-16.0); Mean Corpuscular HGB CONC 33.2 g/dL (32.0-36.0); Mean Corpuscular Hemoglobin 35.7 pg (27.0-31.0); Mean Platelet Volume 7.3 fL (7.4-10.4); Platelet Count 120 thou/uL (130-400); RBC Distribution Width 13.2 % (11.5-14.5); Red Blood Cell (RBC) Count 3.01 mill/uL (4.20-5.40); White Blood Cell (WBC) Count 8.1 thou/uL (4.8-10.8)
[2018-05-16 11:20] LABS: ALT (SGPT) 47 U/L (8-55); AST (SGOT) 184 U/L (5-34); Albumin 3.8 g/dL (3.5-5.0); Alkaline Phosphatase 201 U/L (40-150); Anion Gap 18 mmol/L (10-20); BUN (Urea Nitrogen) 19 mg/dL (9.8-20.1); Bilirubin, Total 5.9 mg/dL (0.2-1.2); Calc. Creatinine Clearance 0 mL/min (70-130); Calcium 8.9 mg/dL (7.8-10.44); Carbon Dioxide 19 mmol/L (22-29); Chloride 102 mmol/L (98-107); Estimated GFR-MDRD 58; Globulin 3.9 g/dL (2.4-3.5); Glucose 88 mg/dL (70-105); Lipase 57 U/L (8-78); Potassium 3.7 mmol/L (3.5-5.1); Protein, Total 7.7 g/dL (6.0-8.3); Sodium 135 mmol/L (136-145)
[2018-05-16 11:43] LABS: Platelet Morphology Comment Appears Decreased
[2018-05-16 11:44] LABS: Macrocytosis SLIGHT = 6-15 cells (100X) (0-5/hpf)
--- NOTE | 2018-05-16 11:58 | ULT ---
ULTRASOUND GALLBLADDER: Date: 05/16/18 HISTORY: Right upper quadrant pain. Cirrhosis. COMPARISON: CT dated 09/23/16. TECHNIQUE: Real-time Kothari scale and color evaluation of the right upper quadrant of the abdomen was performed. FINDINGS: The pancreas is not well seen. There is diffuse increased hepatic echotexture with coarsening. Liver measures 18.0 cm in length. Portal vein patent with antegrade flow. Common bile duct measures 6.0 mm, normal. Gallbladder wall thickness is normal. There is some layering debris and sludge within the gallbladder . No pericholecystic fluid. Right kidney measures 9.3 x 4.1 x 4.5 cm. No renal mass, hydronephrosis, or abnormal calcifications. Sonographic Snider's sign is negative. IMPRESSION: 1. Hepatic cirrhosis. 2. Gallbladder sludge. No evidence for cholecystitis. POS: [facility]
[2018-05-16 13:55] LABS: Bilirubin Moderate (Negative); Blood, Urine Negative (Negative); Clarity CLOUDY (Clear); Glucose, Urine (Dipstick) Negative (Negative); Leukocyte Moderate (Negative); Nitrite Negative (Negative); Protein, Urine (Dipstick) 30 mg/dL (Neg-Trace); Specific Gravity, Urine 1.014 (1.002-1.036); pH, Urine 5.5 (5.0-9.0)
[2018-05-16 13:57] LABS: RBC/HPF 0-3 HPF (0-3)
[2018-05-16 14:10] LABS: Pathc Cast-AUWi Flag 12.06 (0-2.49); Yeast-AUWi Flag 31.4 (0-25.0)
[2018-05-16 14:12] LABS: Pregnancy Test - Urine (BHCG) Negative (Negative); Pregu Control Background? CLEAR/WHITE (CLR/WHITE); Pregu Control Bar Appear? YES (CONTROL BAR); Specific Gravity 1.014 (1.002-1.036)
[2018-05-16 14:28] LABS: Yeast-All Forms None Seen HPF (None Seen)
[2018-05-16 14:29] LABS: Bacteria/HPF 1+ HPF (None Seen); Hyaline Casts/LPF NONE SEEN LPF (0-3 Hyaline)
== END 2018-05-16 12:30 | disposition home or self-care (01) ==
LOC: ERS 10:04
DX: K70.10 Alcoholic hepatitis without ascites (principal); I10 Essential (primary) hypertension; J45.909 Unspecified asthma, uncomplicated; E03.9 Hypothyroidism, unspecified; F32.9 Major depressive disorder, single episode, unspecified; F17.210 Nicotine dependence, cigarettes, uncomplicated; Z79.899 Other long term (current) drug therapy; Z79.51 Long term (current) use of inhaled steroids
CPT/HCPCS: 36415; 76705; 80053; 81003; 81015; 81025; 83690; 85025; 96374; 96375; J2405; J3010

== ENCOUNTER 2018-06-22 01:16 | Observation (INO) | payer SELFPAY ==
[2018-06-22 01:58] LABS: #Basophils 0.1 thou/uL (0.0-0.2); #Eosinphils 0.1 thou/uL (0.0-0.7); #Lymphocytes 1.7 thou/uL (1.20-3.40); #Monocytes 0.5 thou/uL (0.11-0.59); #Neutrophils 8.7 thou/uL (1.40-6.50); %Basophils 0.5 % (0.0-1.0); %Eosinophils 0.7 % (0.0-10.0); %Lymphocytes 15.4 % (21.0-51.0); %Monocytes 4.5 % (0.0-10.0); Hemoglobin 8.7 g/dL (12.0-16.0); Mean Corpuscular HGB CONC 33.6 g/dL (32.0-36.0); Mean Corpuscular Hemoglobin 36.6 pg (27.0-31.0); Mean Platelet Volume 8.1 fL (7.4-10.4); Platelet Count 182 thou/uL (130-400); RBC Distribution Width 14.8 % (11.5-14.5); Red Blood Cell (RBC) Count 2.37 mill/uL (4.20-5.40); White Blood Cell (WBC) Count 11.1 thou/uL (4.8-10.8)
[2018-06-22 02:04] LABS: INR-International Normal Ratio 1.3; Prothrombin Time 16.2 SEC (12.0-14.7)
[2018-06-22 02:05] LABS: PTT 43.5 SEC (22.9-36.1)
[2018-06-22 02:17] LABS: ALT (SGPT) 30 U/L (8-55); AST (SGOT) 99 U/L (5-34); Albumin 2.9 g/dL (3.5-5.0); Alkaline Phosphatase 232 U/L (40-150); Anion Gap 16 mmol/L (10-20); BUN (Urea Nitrogen) 9 mg/dL (9.8-20.1); Bilirubin, Total 6.9 mg/dL (0.2-1.2); Calc. Creatinine Clearance 0 mL/min (70-130); Carbon Dioxide 20 mmol/L (22-29); Chloride 108 mmol/L (98-107); Estimated GFR-MDRD 53; Globulin 4.2 g/dL (2.4-3.5); Glucose 90 mg/dL (70-105); Protein, Total 7.1 g/dL (6.0-8.3); Sodium 141 mmol/L (136-145)
[2018-06-22 02:18] LABS: Acetaminophen Less than 6.0 mcg/mL (10.0-30.0); Alcohol 121 mg/dL (Less than 10); Salicylate Less than 8.0 mg/dL (15.0-30.0)
[2018-06-22 02:29] LABS: Potassium 2.8 mmol/L (3.5-5.1)
[2018-06-22] MEDS ORDERED: Potassium Chloride 20 MEQ TAB ONE (02:37)
[2018-06-22] MEDS ORDERED: Morphine 4 MG/ML VIAL ONE (02:44)
[2018-06-22] MEDS ORDERED: Pantoprazole 40 MG VIAL ONE (02:44)
[2018-06-22] MEDS ORDERED: Diazepam 5 MG TAB PO PRN (02:59)
[2018-06-22] MEDS ORDERED: Potassium Chloride 20 MEQ in Premix Bag 1 BAG IVPB SCH (03:00)
[2018-06-22] MEDS ORDERED: Diazepam 5 MG TAB PO SCH (03:00)
[2018-06-22] MEDS ORDERED: Thiamine HCl 200 MG/2 ML VIAL IM SCH (03:00)
[2018-06-22] MEDS ORDERED: Ondansetron PF 4 MG/2 ML Vial IVP PRN ×2 (04:47→15:45)
[2018-06-22] MEDS ORDERED: Zolpidem Tartrate 5 MG TAB PO PRN (04:47)
--- NOTE | 2018-06-22 04:54 | PDOC.EVN ---
Event Note - Event Note Event Note: H&P [id number]
[2018-06-22 05:21] LABS: Troponin I Less than 0.010 ng/mL (< 0.028)
--- NOTE | 2018-06-22 05:34 | HP ---
CHIEF COMPLAINT: Chest pain. HISTORY OF PRESENT ILLNESS: This is a 58-year-old known alcoholic coming in with chest pain. Stated that she was found to have low hemoglobin as well as high level of plasma alcohol. The patient was also found to have significant hypokalemia. The patient was recommended for admission by ER for chest pain. Denies any alleviating or aggravating factors. No associated symptoms or complaints. The patient was seen and examined in the ER. No family at bedside. All questions answered. ALLERGIES: SEE LIST OF ALLERGIES. MEDICATIONS: See MAR. FAMILY HISTORY: Hypertension. PAST MEDICAL HISTORY: Alcoholism, hypokalemia, hypertension. SOCIAL HISTORY: Heavy alcoholic, social smoker. REVIEW OF SYSTEMS: All systems reviewed. Pertinent positives in HPI, otherwise negative. PHYSICAL EXAMINATION: VITAL SIGNS: Blood pressure 118/88, temperature of 98 degrees Farenheit, O2 saturations 98% on room air. GENERAL: The patient is lying in bed comfortably. No acute distress. HEENT: Pupils are equal, round, and reactive to light and accommodation. Oral cavity is moist and pink. Extraocular muscles are intact. NECK: Supple, mobile, nontender. Thyroid appreciated. RESPIRATORY: Clear to auscultation bilaterally. No respiratory distress. No increase in AP diameter. CARDIOVASCULAR: S1, S2. No murmurs, rubs, or gallops appreciated. ABDOMEN: Positive bowel sounds. Soft, nontender, nondistended. EXTREMITIES: 2+ peripheral pulses noted. No cyanosis, clubbing, or edema noted. NEUROLOGIC: Cranial nerves 2 through 12 are intact. No loss of motor or sensory function. LABORATORY DATA: CBC shows a hemoglobin of 8.7, MCV of 109. Basic metabolic panel shows a potassium of 2.8, bicarb is 20, TSH of 18. Alcohol level of 121. ASSESSMENT: 1. Chest pain. 2. Hypokalemia. 3. Elevated blood alcohol levels. 4. Hypothyroidism ? 5. Hypertension. 6. Substance abuse. PLAN: At this point in time, we will admit the patient to observation service. She wishes to remain a full code. We will start the patient on a banana bag. Replace potassium. Trend enzymes, will need to likely be started on some thyroid medication, to be considered at point in time of discharge. Case and plan were discussed with patient at length. She understood and agreed with this plan. Job ID: [id number]
[2018-06-22 06:01] LABS: Iron 76 ug/dL (50-170); Iron Binding Capacity, Total 134 mcg/dL (265-497)
--- NOTE | 2018-06-22 08:05 | RAD ---
SINGLE VIEW CHEST: Date: 06/22/18 COMPARISON: 02/24/17. HISTORY: Chest pain that began a few days ago. FINDINGS: Single view of the chest shows a normal sized cardiomediastinal silhouette. There is no evidence of c onsolidation, mass, or pleural effusion. The bones are unremarkable. IMPRESSION: No evidence of acute cardiopulmonary disease. POS: [facility]
[2018-06-22 08:15] LABS: Troponin I Less than 0.010 ng/mL (< 0.028)
--- NOTE | 2018-06-22 08:26 | CT ---
PRELIMINARY REPORT/[facility]/EMERGENCY AFTER HOURS PROCEDURE: EXAM: CT Head Without Contrast EXAM DATE/TIME: 06/22/2018 2:02 AM CLINICAL HISTORY: 58 years old, female; Pain; Headache; Headache not specified; Patient HX: PT called ems for chest halima n beginning a couple of days ago. PT states she has had a fever and n/v. PT also states she has a everardo h on her back TECHNIQUE: Imaging protocol: Axial computed tomography images of the head/brain without contrast. COMPARISON: No relevant prior studies available. FINDINGS: Brain: Mild generalized volume loss of the brain. No brain edema. No intracranial hemorrhage. Ventricles: Normal. No ventriculomegaly. Bones/joints: Unremarkable. No acute fracture. Sinuses: Visualized sinuses are unremarkable. No acute sinusitis. Mastoid air cells: Visualized mastoid air cells are unremarkable. No mastoid effusion. Soft tissues: Unremarkable. IMPRESSION: No acute brain findings. Thank you for allowing us to participate in the care of your patient. Dictated and Authenticated by: Yehuda Alvarez MD 06/22/2018 2:39 AM Central Time ([place] & [place]) FINAL REPORT HEAD CT WITHOUT CONTRAST: Date: 06/22/18 COMPARISON: 06/24/17. HISTORY: Headache and fever with nausea and vomiting. FINDINGS: This report is in agreement with the preliminary report given by Gerry. Imaged paranasal sinuses/mastoid air cells are well aerated. No displaced calvarial fracture noted. There is no intracranial hemorrhage, midline shift, or mass effect. There is mild cerebral volume loss near the vertex, stable. IMPRESSION: Stable head CT. No acute findings. POS: [facility]
[2018-06-22] MEDS ORDERED: Multivitamin W/ Minerals 1 TAB PO SCH (09:00)
[2018-06-22] MEDS ORDERED: Folic Acid 1 MG TAB PO SCH (09:00)
[2018-06-22] MEDS ORDERED: Thiamine 100 MG TAB PO SCH (09:00)
[2018-06-22] MEDS ORDERED: Diazepam 5 MG TAB ONE (09:27)
[2018-06-22] MEDS ORDERED: Thiamine 100 MG TAB ONE (09:27)
[2018-06-22] MEDS: Magnesium Oxide 400 MG TAB PO SCH (09:33)
[2018-06-22] MEDS: Diazepam 5 MG TAB PO PRN ×2 (09:33→21:06)
[2018-06-22 11:02] LABS: Potassium 3.8 mmol/L (3.5-5.1)
[2018-06-22 14:01] VITALS: BMI 28.4
--- NOTE | 2018-06-22 14:19 | CON ---
DATE OF CONSULTATION: 06/22/2018 CHIEF COMPLAINT: Abdominal pain and diarrhea. HISTORY OF PRESENT ILLNESS: Ms. Green is a 58-year-old woman with alcoholic cirrhosis who started drinking heavily again a while ago after her sister . She tried to stop drinking, but started getting the shakes and then also developed diarrhea with up to 9 watery stools over the day yesterday and some lower abdominal pain, so she came on to the emergency room for further care. She has had no ongoing nausea or vomiting. She has had some indigestion and epigastric discomfort and has been taking some Tums and baking soda with some improvement for that. She has had no hematemesis. She has had some dysphagia with swallowing pills. She has had no blood in the stool or black stools. PAST MEDICAL HISTORY: Cirrhosis, hypertension, alcohol abuse. PAST SURGICAL HISTORY: Hernia repair, tubal ligation, upper endoscopy. ALLERGIES: CEFTRIAXONE, LEVOTHYROXINE, MOXIFLOXACIN, NICOTINE, QUINOLONES, SULFAMETHOXAZOLE, TRIMETHOPRIM. REVIEW OF SYSTEMS: Negative x10 systems reviewed except as stated in the history of present illness. PHYSICAL EXAMINATION: VITAL SIGNS: Blood pressure 105/61, pulse 92, temperature 98.7. GENERAL: She is in no acute distress. She is alert and oriented x3. HEENT: Her eyes have scleral icterus. Her oropharynx is clear without lesions. NECK: No cervical or supraclavicular lymphadenopathy. LUNGS: Clear to auscultation bilaterally. HEART: Regular rate and rhythm without murmur. ABDOMEN: Very soft and she has minimal tenderness in the lower abdomen. No abdominal distention or shifting dullness. EXTREMITIES: Have no lower extremity edema. NEUROLOGIC: Cranial nerves are grossly intact. No asterixis on neurological exam. LABORATORY DATA: TSH is 17.9, creatinine 1.07, bilirubin 6.9, AST 99, ALT 30, alkaline phosphatase 232, albumin 2.9. INR 1.3. White blood cell count 11.1, hemoglobin 8.0, platelets 182. IMPRESSION: 1. Decompensated cirrhosis with acute alcoholic hepatitis. Her bilirubin is elevated. We will follow the trend of this. Her last drink was a little before midnight last night. She has a history of alcohol withdrawal with the shakes, but has not had seizures previously. 2. Acute diarrhea. 3. History of ascites; however, she does not have any evidence of tense ascites now. RECOMMENDATIONS: 1. Check stool studies for C. diff culture, ova and parasite and lactoferrin. 2. Delirium tremens prophylaxis. 3. Multivitamins, thiamine, folate. 4. For hepatoma screening, check ultrasound of the liver and alpha fetoprotein. 5. She wants to quit drinking, however; if discharged she is likely either to return to drinking, although she has tried taking Librium as an outpatient previously. I think she would do poorly, if discharged immediately. Job ID: [id number]
--- NOTE | 2018-06-22 15:43 | PDOC.PN ---
- Subjective Encounter Start Date: 06/22/18 Encounter Start Time: 15:41 Subjective: feels better.has chronic itching and abd pain w poor appetite - Objective Resuscitation Status - Order Detail: 06/22/18 04:47 Resuscitation Status Routine Resuscitation Status: FULL: Full Resuscitation MAR Reviewed: Yes Vital Signs & Weight: Vital Signs (12 hours) Temp Pulse Resp BP Pulse Ox 06/22/18 13:52 98.7 F 90 15 109/55 L 93 L Weight Weight 160 lb 11.2 oz Result Diagrams: 06/22/18 10:19 06/22/18 10:16 Additional Labs: Laboratory Tests 02/26/17 05/20/17 06/24/17 05:36 15:12 01:01 Hgb Total Bilirubin 11.0 H 3.0 H 2.1 H Troponin I TSH 3rd Generation Plasma Alcohol 06/24/17 05/16/18 06/22/18 01:01 10:51 01:49 Hgb 12.4 10.8 L Total Bilirubin 6.9 H Troponin I TSH 3rd Generation Plasma Alcohol 06/22/18 06/22/18 06/22/18 01:49 01:49 01:49 Hgb Total Bilirubin Troponin I Less than 0.010 TSH 3rd Generation 17.9787 H Plasma Alcohol 121 H 06/22/18 06/22/18 06/22/18 01:49 04:45 07:34 Hgb 8.7 L Total Bilirubin Troponin I Less than 0.010 Less than 0.010 TSH 3rd Generation Plasma Alcohol Phys Exam - Physical Examination Constitutional: NAD HEENT: PERRLA, moist MMs, oral pharynx no lesions icterus Neck: no nodes, no JVD, supple, full ROM Respiratory: no wheezing, no rales, no rhonchi Cardiovascular: RRR, no significant murmur Gastrointestinal: soft, non-tender, no distention, positive bowel sounds no fluid wave Musculoskeletal: no edema, pulses present Neurological: non-focal, normal sensation, moves all 4 limbs Psychiatric: normal affect, A&O x 3 Deviation from normal: multiple healing folliculitis type rash on back -: jaundiced Dx/Plan (1) Acute alcoholic hepatitis Code(s): K70.10 - ALCOHOLIC HEPATITIS WITHOUT ASCITES Status: Acute (2) Hyperbilirubinemia Code(s): E80.6 - OTHER DISORDERS OF BILIRUBIN METABOLISM Status: Acute (3) Chest pain in adult Code(s): R07.9 - CHEST PAIN, UNSPECIFIED Status: Acute (4) Acute alcohol intoxication with alcoholism Code(s): F10.229 - ALCOHOL DEPENDENCE WITH INTOXICATION, UNSPECIFIED Status: Acute (5) Hypokalemia Code(s): E87.6 - HYPOKALEMIA Status: Resolved (6) Hypomagnesemia Code(s): E83.42 - HYPOMAGNESEMIA Status: Resolved - Plan DVT proph w/SCDs start detox w Librium as pt wanting to quit drinking -: add bile acid binders for pruritus of jaundice -: MV,thiamine ,Folic acid. -: monitor for DTs. -: Care discussed w GI & appreciate recs.not safe for Dc * .
[2018-06-22] MEDS ORDERED: Nitroglycerin 0.4 MG TAB (25 Tab Bottle) SL PRN (15:45)
[2018-06-22] MEDS ORDERED: Senokot S 8.6-50 MG TAB PO PRN (15:45)
[2018-06-22] MEDS ORDERED: cloNIDine 0.1 MG TAB PO PRN (15:45)
[2018-06-22] MEDS ORDERED: Benzonatate 100 MG CAP PO PRN (15:45)
[2018-06-22] MEDS ORDERED: hydrALAZINE 20 MG/ML VIAL SLOW IVP PRN (15:45)
[2018-06-22] MEDS ORDERED: Lorazepam 2 MG/ML VIAL SLOW IVP PRN (15:45)
[2018-06-22] MEDS ORDERED: Calcium Carbonate 500 MG ChewTAB PO PRN (15:45)
[2018-06-22] MEDS ORDERED: Diabetic Tussin 200 MG/10 ML UDCUP PO PRN (15:45)
[2018-06-22] MEDS ORDERED: Bisacodyl 5 MG TAB PO PRN (15:45)
[2018-06-22] MEDS ORDERED: Magnesium 2 GM/50 ML 2 GM in Premix Bag 1 BAG IVPB SCH (16:30)
[2018-06-22] MEDS ORDERED: Magnesium Sulfate 2 GM in Sodium Chloride 0.9% 100 ML IVPB SCH (16:30)
[2018-06-22] MEDS: chlordiazePOXIDE HCl 25 MG CAP PO SCH ×2 (16:50→21:07)
[2018-06-23 07:11] LABS: #Basophils 0.1 thou/uL (0.0-0.2); #Eosinphils 0.2 thou/uL (0.0-0.7); #Lymphocytes 1.4 thou/uL (1.20-3.40); #Monocytes 0.8 thou/uL (0.11-0.59); #Neutrophils 10.5 thou/uL (1.40-6.50); %Basophils 0.4 % (0.0-1.0); %Eosinophils 1.4 % (0.0-10.0); %Lymphocytes 10.8 % (21.0-51.0); %Monocytes 6.4 % (0.0-10.0); Hemoglobin 8.1 g/dL (12.0-16.0); Mean Corpuscular HGB CONC 33.9 g/dL (32.0-36.0); Mean Corpuscular Hemoglobin 37.4 pg (27.0-31.0); Mean Platelet Volume 8.1 fL (7.4-10.4); Platelet Count 166 thou/uL (130-400); RBC Distribution Width 14.8 % (11.5-14.5); Red Blood Cell (RBC) Count 2.17 mill/uL (4.20-5.40)
[2018-06-23 07:26] LABS: Anion Gap 12 mmol/L (10-20); BUN (Urea Nitrogen) 10 mg/dL (9.8-20.1); Calc. Creatinine Clearance 83 mL/min (70-130); Calcium 8.1 mg/dL (7.8-10.44); Carbon Dioxide 21 mmol/L (22-29); Chloride 107 mmol/L (98-107); Estimated GFR-MDRD 68; Glucose 78 mg/dL (70-105); Potassium 3.6 mmol/L (3.5-5.1); Sodium 136 mmol/L (136-145)
--- NOTE | 2018-06-23 07:57 | ULT ---
COMPLETE ABDOMEN ULTRASOUND: Date: 06/23/18 INDICATION: History of cirrhosis, evaluate for ascites and hepatoma. COMPARISON: Recent right upper quadrant ultrasound dated 05/16/[address] of the abdomen and pelvis dated . FINDINGS: There is scattered mild ascites. The liver demonstrates a cirrhotic morphology without definite intra parenchymal mass. Spleen is enlarged, measuring 13.0 cm. There are layering stones and sludge within the gallbladder. There is gallbladder wall thickening and edema measuring 5.8 mm. No sonographic Murp hy's sign is reported. Common bile duct measures 5.0 mm. The visualized pancreas is unremarkable. The right kidney measures 9.6 cm in length and the left measures 9.6 cm in length. No hydronephrosis is evident. IMPRESSION: 1. Cirrhosis with findings of portal hypertension. No definite focal hepatic lesion is evident. 2. Mild ascites. 3. Stable gallbladder sludge and small stones. 4. Gallbladder wall edema, likely related to patient's cirrhosis. POS: [facility]
[2018-06-23] MEDS ORDERED: Thiamine 100 MG TAB PO SCH ×2 (09:00)
[2018-06-23] MEDS ORDERED: Propranolol 10 MG TAB PO SCH (09:00)
[2018-06-23] MEDS ORDERED: Folic Acid 1 MG TAB PO SCH (09:00)
[2018-06-23] MEDS ORDERED: Non-Formulary Item 1 EACH (Levothyroxine Sodium [Synthroid] 137 MCG) PO SCH (09:00)
[2018-06-23] MEDS: chlordiazePOXIDE HCl 25 MG CAP PO SCH (09:02)
[2018-06-23] MEDS: Magnesium Oxide 400 MG TAB PO SCH (09:03)
[2018-06-23 12:07] VITALS: BP 95/54; TEMP 97.7
--- NOTE | 2018-06-23 18:05 | DIS ---
DATE OF ADMISSION: 06/22/2018 DATE OF DISCHARGE: 06/23/2018 CONDITION: At the time of discharge, stable and improved. DISCHARGE DISPOSITION: Home. DISCHARGE DIAGNOSES: 1. Acute alcoholic hepatitis. 2. Hyperbilirubinemia due to alcoholic liver cirrhosis. 3. Acute alcoholic intoxication. 4. Alcohol abuse. 5. Liver cirrhosis with portal hypertension. 6. Hypokalemia. 7. Hypomagnesemia. 8. Chest pain, likely secondary to gallbladder sludge. DISCHARGE MEDICATIONS: 1. Librium taper. 2. Folic acid 1 mg daily. 3. Levothyroxine in the form of Synthroid 137 mcg daily. The patient can take Synthroid, but not levothyroxine, for which she is allergic to. 4. Protonix 40 mg daily. 5. Thiamine 100 mg daily. 6. Ativan 1 mg every 2 hours as needed for agitation and alcohol withdrawal #32 pills. PRIMARY CARE PHYSICIAN: Dr. Harkins. PRIMARY PRE BILLING SPECIALIST: Dr. Daryl Fay. IN-HOUSE CONSULTATION: Gastroenterology, Dr. William Sosa. PROCEDURES DONE IN THE HOSPITAL: 1. CT scan of the brain upon presentation, which is unremarkable. 2. Abdominal ultrasound, which shows cirrhosis with portal hypertension without any focal hepatic lesion and mild ascites and gallbladder sludge and small stones. HISTORY OF PRESENTING ILLNESS: Ms. Green is a 58-year-old female with known history of severe alcohol abuse and alcoholic cirrhosis with noncompliance with GI followup, who presented to the emergency room with complaints of nonspecific chest pain. She was found to have significant hypokalemia and hypomagnesemia as well as hyperbilirubinemia and elevated liver enzymes, possibly consistent with acute alcoholic hepatitis. She was admitted for further workup and care and started on banana bag. GI was consulted. Please see admission history and physical dictated by Dr. Hernandez on 06/22/2018. HOSPITAL COURSE: The patient was seen by Dr. Sosa from GI services. He recommended conservative approach until the patient can stop drinking. She exhibited desire to stop drinking and requested detox, which was started in the hospital. Eventually, she is stabilized and had no acute symptoms. Her hemoglobin was monitored and remained stable at around 8. Her potassium recheck showed normalization. Magnesium was also replaced. Cardiac enzymes were trended because of complaints of chest pain upon presentation and they were unremarkable x3. At this morning, she was seen and examined. She has no further medical need to stay in the hospital. She needs to stop drinking. Otherwise, I have told her that she has less than 6 months to live. She was started on given her portal hypertension, but her blood pressure dropped, so it was discontinued. She will continue Protonix and other medications as above. She is instructed to follow up closely with Gastroenterology in the outpatient setting, quit drinking, and take her medications. This morning, her vital signs are stable. Chest is clear to auscultation without any wheezing, rales, or rhonchi. Rate rhythm is regular. Abdomen without ascites. She is being discharged. Job ID: [id number]
[2018-06-24] MEDS ORDERED: Levothyroxine Sodium 112 MCG TAB PO SCH (06:00)
[2018-06-24] MEDS ORDERED: Levothyroxine Sodium 25 MCG TAB PO SCH (06:00)
--- NOTE | 2018-06-24 17:15 | EKG ---
Test Reason : Blood Pressure : / mmHG Vent. Rate : 087 BPM Atrial Rate : 087 BPM P-R Int : 138 ms QRS Dur : 082 ms QT Int : 414 ms P-R-T Axes : 060 -20 -02 degrees QTc Int : 498 ms Normal sinus rhythm Low voltage QRS Nonspecific ST and T wave abnormality Prolonged QT Abnormal ECG Confirmed by KULWINDER YUN ([id number]), video news editor ZI PAVON ([id number]) on 06/24/2018 5:14:53 PM Referred By: Confirmed By:KULWINDER YUN
== END 2018-06-23 16:25 | disposition home or self-care (01) ==
LOC: ERS 01:16 → ERHOLD 02:38 → 2SW 13:25
PROVIDERS: ADMIT Internal Medicine; ATTEND Internal Medicine
DX: K70.11 Alcoholic hepatitis with ascites (principal); K76.6 Portal hypertension; K70.31 Alcoholic cirrhosis of liver with ascites; F10.229 Alcohol dependence with intoxication, unspecified; E87.6 Hypokalemia; E83.42 Hypomagnesemia; I10 Essential (primary) hypertension; E03.9 Hypothyroidism, unspecified; F17.200 Nicotine dependence, unspecified, uncomplicated; Z98.51 Tubal ligation status; Z88.1 Allergy status to other antibiotic agents; Z88.2 Allergy status to sulfonamides; Z88.8 Allergy status to other drugs, medicaments and biological substances; Z79.899 Other long term (current) drug therapy; Z98.890 Other specified postprocedural states
CPT/HCPCS: 36415; 70450; 71045; 76700; 80048; 80053; 80307; 82140; 82248; 82728; 83540; 83550; 83735; 84443; 84484; 85025; 85610; 85730; 90471; 90686; 93005; 96365; 96366; 96367; 96372; 96375; 99406; C9113; G0008; G0378; J2270; J3411; J3475; J3480; J7050

== ENCOUNTER 2018-07-04 22:43 | Inpatient (IN) | payer SELFPAY ==
[2018-07-04] MEDS ORDERED: Pantoprazole 80 MG, Admixture Fee 1 EACH in Sodium Chloride 0.9% 100 ML IVP SCH (23:30)
[2018-07-04] MEDS ORDERED: Octreotide Acetate 1,250 MCG in Sodium Chloride 0.9% 250 ML 250 ML IVPB SCH (23:30)
[2018-07-04] MEDS ORDERED: Norepinephrine 8 MG/0.9% NS 250 ML ONE (23:32)
--- NOTE | 2018-07-04 23:33 | RAD ---
FEXAM: Portable chest PROVIDED CLINICAL HISTORY: Altered mental status COMPARISON: 06/22/2018 FINDINGS: Cardiac and mediastinal silhouette appears enlarged, which may be at least partially on the basis of portable technique. No focal consolidation, pleural fluid or pneumothorax evident. The supine nature of the study limits sensitivity for detection pleural fluid or pneumothorax. IMPRESSION: No evidence for an acute cardiopulmonary process.
[2018-07-04 23:46] LABS: #Basophils 0.1 thou/uL (0.0-0.2); #Eosinphils 0.1 thou/uL (0.0-0.7); #Lymphocytes 2.5 thou/uL (1.20-3.40); #Monocytes 1.3 thou/uL (0.11-0.59); #Neutrophils 13.6 thou/uL (1.40-6.50); %Basophils 0.5 % (0.0-1.0); %Eosinophils 0.5 % (0.0-10.0); %Lymphocytes 14.1 % (21.0-51.0); %Monocytes 7.1 % (0.0-10.0); %Neutrophils 77.7 % (42.0-75.0); Hemoglobin 7.6 g/dL (12.0-16.0); Mean Corpuscular HGB CONC 32.7 g/dL (32.0-36.0); Mean Corpuscular Hemoglobin 36.5 pg (27.0-31.0); Mean Platelet Volume 8.1 fL (7.4-10.4); Platelet Count 180 thou/uL (130-400); RBC Distribution Width 15.4 % (11.5-14.5); Red Blood Cell (RBC) Count 2.08 mill/uL (4.20-5.40); White Blood Cell (WBC) Count 17.5 thou/uL (4.8-10.8)
[2018-07-04] MEDS ORDERED: Pantoprazole 40 MG VIAL ONE (23:46)
[2018-07-04] MEDS ORDERED: Ondansetron PF 4 MG/2 ML Vial ONE (23:46)
[2018-07-05 00:02] LABS: Acetaminophen Less than 6.0 mcg/mL (10.0-30.0); Alcohol 73 mg/dL (Less than 10); Salicylate Less than 8.0 mg/dL (15.0-30.0)
[2018-07-05 00:04] LABS: ALT (SGPT) 19 U/L (8-55); AST (SGOT) 75 U/L (5-34); Albumin 2.4 g/dL (3.5-5.0); Alkaline Phosphatase 205 U/L (40-150); Anion Gap 17 mmol/L (10-20); BUN (Urea Nitrogen) 12 mg/dL (9.8-20.1); Bilirubin, Total 6.6 mg/dL (0.2-1.2); CK (CPK) 28 U/L (29-168); Calc. Creatinine Clearance 0 mL/min (70-130); Calcium 7.5 mg/dL (7.8-10.44); Carbon Dioxide 19 mmol/L (22-29); Chloride 106 mmol/L (98-107); Estimated GFR-MDRD 50; Globulin 3.9 g/dL (2.4-3.5); Glucose 91 mg/dL (70-105); Lipase 52 U/L (8-78); Potassium 3.5 mmol/L (3.5-5.1); Protein, Total 6.3 g/dL (6.0-8.3); Sodium 138 mmol/L (136-145)
[2018-07-05 00:08] LABS: INR-International Normal Ratio 1.5; Prothrombin Time 17.8 SEC (12.0-14.7)
[2018-07-05 00:09] LABS: PTT 44.3 SEC (22.9-36.1)
[2018-07-05] MEDS ORDERED: Ondansetron PF 4 MG/2 ML Vial IVP PRN (00:42)
[2018-07-05] MEDS ORDERED: PROVENTIL INHALER 6.7 G (200 INHALATIONS) INH PRN (00:45)
[2018-07-05] MEDS ORDERED: Lorazepam 2 MG/ML VIAL SLOW IVP PRN ×3 (00:45→22:34)
[2018-07-05] MEDS ORDERED: metroNIDAZOLE 500 MG/100 ML BAG ONE (01:11)
[2018-07-05] MEDS ORDERED: Clindamycin/D5W 900 mg/50 ml Premix Bag ONE (01:11)
[2018-07-05 03:44] LABS: Lactic Acid 2.6 mmol/L (0.5-2.2)
[2018-07-05 03:48] LABS: Anion Gap 13 mmol/L (10-20); BUN (Urea Nitrogen) 11 mg/dL (9.8-20.1); Calc. Creatinine Clearance 70 mL/min (70-130); Calcium 7.9 mg/dL (7.8-10.44); Carbon Dioxide 24 mmol/L (22-29); Chloride 107 mmol/L (98-107); Estimated GFR-MDRD 54; Glucose 99 mg/dL (70-105); Sodium 142 mmol/L (136-145)
[2018-07-05 03:52] LABS: Potassium 2.3 mmol/L (3.5-5.1)
[2018-07-05 03:57] LABS: #Basophils 0.1 thou/uL (0.0-0.2); #Eosinphils 0.2 thou/uL (0.0-0.7); #Lymphocytes 2.4 thou/uL (1.20-3.40); #Monocytes 1.3 thou/uL (0.11-0.59); #Neutrophils 14.1 thou/uL (1.40-6.50); %Basophils 0.7 % (0.0-1.0); %Eosinophils 1.2 % (0.0-10.0); %Lymphocytes 13.1 % (21.0-51.0); Anisocytosis SLIGHT = 6-15 cells (100X) (0-5/hpf); Hemoglobin 9.6 g/dL (12.0-16.0); MDiff Complete? YES; Mean Corpuscular HGB CONC 33.1 g/dL (32.0-36.0); Mean Corpuscular Hemoglobin 34.4 pg (27.0-31.0); Mean Platelet Volume 7.9 fL (7.4-10.4); Platelet Count 177 thou/uL (130-400); Platelet Morphology Comment Appears Adequate; Red Blood Cell (RBC) Count 2.78 mill/uL (4.20-5.40); White Blood Cell (WBC) Count 18.1 thou/uL (4.8-10.8)
[2018-07-05] MEDS ORDERED: Octreotide Acetate 1,250 MCG in Sodium Chloride 0.9% 250 ML 250 ML IVPB SCH ×2 (04:01→20:15)
--- NOTE | 2018-07-05 04:07 | PDOC.EVN ---
Event Note - Event Note Event Note: H&P [id number]
[2018-07-05] MEDS ORDERED: Potassium Chloride 20 MEQ TAB PO SCH (04:15)
[2018-07-05] MEDS: Levothyroxine Sodium 112 MCG TAB PO SCH (05:47)
[2018-07-05] MEDS: Levothyroxine Sodium 25 MCG TAB PO SCH (05:47)
--- NOTE | 2018-07-05 07:24 | HP ---
CHIEF COMPLAINT: GI bleeding. HISTORY OF PRESENT ILLNESS: This is a 58-year-old female, who is coming in due to a GI bleed. The patient was admitted here recently on June 22, discharged again. Last time, the admission was due to GI bleed as well. Per discussion with the ER, the patient was brought here significantly bleeding out, had a hemoglobin of 7.6, which is low from her baseline of 13. Blood loss protocol was done and blood was transfused to the patient. Of note, even after transfusion, the patient's blood pressure was noted to be in the 60s to 70s. She was started on Levophed drip through the femoral central catheter placed in the ER. The patient was also found to have a leukocytosis at 17.5. Given her plethora of allergies, all of which she says that she has no idea what happens when she takes these drugs, the patient was restricted to antibiotics. The patient was given Flagyl, clindamycin, and vancomycin in the ER. The patient was noted to have a significantly elevated alcohol level of 73 again. In prior admissions, the patient had stated that she was going to quit; however, stated at this time around that she was unable to do so. The patient vehemently states that she does not want to be intubated under any circumstances, is okay accepting the pressor for her low blood pressure, but is not interested in talking to any reconciliation clerk at this point in time, nor does she want to be intubated if it comes to that, states that she would like to be a DNR/DNI. The patient otherwise states that she feels well. Denies any other complaints or issues. States she feels much better after the transfusion and is actually stating that she wants to go home. The patient was seen and examined in the ER. No family at bedside. All questions answered. REVIEW OF SYSTEMS: All systems reviewed, pertinent positives in HPI. ALLERGIES: PLEASE SEE THE DOCUMENTED LIST IN THE COMPUTER. PAST MEDICAL HISTORY: Cirrhosis, anemia, hypertension, hyperlipidemia, peripheral vascular disease, obesity as well as CKD stage 3, and metabolic bone disease. FAMILY HISTORY: Noncontributory. SOCIAL HISTORY: Heavy alcoholic, social smoker. PHYSICAL EXAMINATION: VITAL SIGNS: Blood pressure is 118/70, on Levophed drip; temperature of 98; O2 saturation is 100% on room air; heart rate of 100; and temperature of 98. GENERAL: The patient is lying in bed, in no acute discomfort. HEENT: Icteric sclerae. Normocephalic and atraumatic. Extraocular muscles are intact. Pupils are equal, round, and reactive to light and accommodation. Oral cavity is moist and pink. NECK: Supple, mobile, and nontender. Thyroid is appreciated. PULMONARY: Clear to auscultation bilaterally. No increase in respiratory rate. No respiratory distress. CARDIOVASCULAR: Tachycardia, sinus. S1 and S2. Faint murmur appreciated. ABDOMEN: Positive ascites. Positive bowel sounds. Nontender and nondistended. EXTREMITIES: 1+ pitting edema in the bilateral lower extremities. No cyanosis or clubbing noted. NEUROLOGIC: Cranial nerves 2 through 12 are intact and no loss of sensory function. LABORATORY DATA: Reviewed. DIAGNOSTIC DATA: Radiology report for chest x-ray reviewed. ASSESSMENT: 1. Gastrointestinal bleed. 2. History of cirrhosis. 3. Alcohol intoxication. 4. Anemia. 5. Chronic kidney disease. 6. Leukocytosis. 7. Hyperlipidemia. PLAN: At this point in time, we will admit the patient to the ICU. Levophed drip to be continued, titrate for a MAP of 55. Continue with Protonix. ER has already ordered octreotide as well, so we will continue with these three drugs for now. GI consult to be evaluated in the morning. Blood transfusion being done. Repeat hemoglobin to be done in the morning, last check was 7.6, recently done 1 hour ago. The patient wishes to remain a DNR, so we will oblige to her request. Repeat labs in the morning. The patient has received clindamycin, Flagyl, and vancomycin for her leukocytosis and suspected infection. Unclear what the source is at this point in time, we will hold off on any further antibiotic infusions. We will obtain blood cultures as well as a stool evaluation consider antibiotics if the patient develops fevers or has any other form or signs of associated sepsis right now. Tachycardia can also be explained by volume loss as well as Levophed. So, unclear if she is truly septic or having a stress reaction going on. Consult is to ICU and GI as mentioned earlier. No family at the bedside. We will resume home medications as well as reconciliation has been performed. Case and plan discussed with the patient at length. She understood and agreed with this plan. Prognosis is overall poor. Job ID: [id number]
[2018-07-05] MEDS: Multivitamins, Adult 10 ML, Thiamine HCl 100 MG, Folic Acid 1 MG in Dextrose 5 %-0.45 %... IV SCH (09:29)
--- NOTE | 2018-07-05 10:04 | CON ---
DATE OF CONSULTATION: 07/05/2018 CHIEF COMPLAINT: GI bleed and severe anemia. HISTORY OF PRESENT ILLNESS: Ms. Green is a 58-year-old female, who was admitted to the ER with severe anemia from reported GI bleed. She has known alcoholic liver disease with cirrhosis complicated by ascites and no previous GI bleed or encephalopathy. Her alcohol level on admission was elevated. She presented to the ER with severe weakness and reported history of several day of rectal bleeding and blood in her stool. Her hemoglobin was over 7 g/dL on admission. She was hypertensive in the ER and was started on Levophed. After transfusion, her hemoglobin has now been elevated over 9 g/dL. Currently, her vitals are stable on 6 mcg of Levophed. She reports having some vague nonlocalizing abdominal pain. She does have occasional nausea and vomiting. She denies having any hematemesis. For the last 2 to 3 days, she has had rectal bleeding, both with and without bowel movements. She also reports occasional black stool. The patient did have outpatient EGD and colonoscopy in November of 2016, that did not show any varices. She did have benign colon polyps and internal hemorrhoids on her colonoscopy. PAST MEDICAL HISTORY: 1. Hypertension. 2. Depression. 3. Hypothyroidism. 4. Alcohol abuse. 5. Status post tubal ligation. 6. History of Clostridium difficile colitis. 7. Status post hernia repair. ALLERGIES: MULTIPLE, INCLUDING CEFTRIAXONE, LEVOTHYROXINE, QUINOLONES, SULFAMETHOXAZOLE, AND TRIMETHOPRIM. FAMILY HISTORY: Negative for any known GI problem, liver disease, or GI malignancy. SOCIAL HISTORY: The patient continues to have large alcohol consumption, refused to elaborate on the amount. She does not smoke. REVIEW OF SYSTEMS: Ten-point review of systems did not show any other pertinent positives or negatives. PHYSICAL EXAMINATION: VITAL SIGNS: Her current temperature is 97.7, blood pressure 81/45 on 6 mcg of Levophed, pulse of 86. GENERAL: She is alert, conversant, in no distress. HEENT: Shows icteric sclerae. Oropharynx clear. NECK: Supple. CV: Shows normal S1, S2. Regular rate and rhythm. CHEST: Shows breath sounds. ABDOMEN: Protuberant and mildly tender, but no mild guarding, tensing, or rebound. Organomegaly not assessable secondary to protuberant upper abdomen. EXTREMITIES: Does not show any edema. LABORATORY DATA: Sodium 142, potassium 2.3, chloride 107, CO2 of 24, creatinine 1.05, BUN of 11. Her INR is 1.5, PTT 44. WBC is 18.1, hemoglobin 9.6 up from 7.6 after 3 units of RBC transfusion. Bilirubin is 6.6, AST is 75, ALT of 19, alkaline phosphatase 205. ASSESSMENT: 1. Gastrointestinal bleed, clinically by history appears to be lower gastrointestinal bleed. However, her colonoscopy from 2 years ago only showed benign polyps and internal hemorrhoids. There are no signs of active bleeding at the present time. Given her alcoholic liver disease with evidence of portal hypertension and perhaps cirrhosis, a brisk upper gastrointestinal source such as varices is the possibility. 2. Severe anemia from acute gastrointestinal blood loss, status post transfusion. 3. Alcoholic hepatitis with likely underlying cirrhosis. 4. Ongoing alcohol abuse. RECOMMENDATIONS: 1. We will proceed with upper endoscopy to exclude any source of upper GI blood loss. 2. Continue to trend her blood count at this point. 3. Further recommendation to follow above findings. Job ID: [id number]
[2018-07-05] MEDS ORDERED: Norepinephrine 8 MG/250 ML BAG IVPB PRN (13:11)
[2018-07-05] MEDS ORDERED: Sodium Chloride 0.9% 1,000 ML IV SCH (13:30)
[2018-07-05] MEDS ORDERED: PROPOFOL 200 MG/20 ML VIAL ONE (16:15)
--- NOTE | 2018-07-05 16:17 | PDOC.PN ---
- Subjective Encounter Start Date: 07/05/18 Encounter Start Time: 09:00 Subjective: pt up in bed drowsy but arousable - Objective Resuscitation Status - Order Detail: 07/05/18 00:42 Resuscitation Status Routine Resuscitation Status: DNAR: NO Resuscitation Discussed with: patient Vital Signs & Weight: Vital Signs (12 hours) Temp Pulse Ox 07/05/18 15:47 97 07/05/18 14:00 100.1 F H 07/05/18 13:00 100.1 F H 07/05/18 08:00 100 Weight Weight 166 lb 0.129 oz Most Recent Monitor Data Heart Rate from ECG 85 NIBP 112/91 NIBP BP-Mean 98 Respiration from ECG 23 SpO2 100 I&O: 07/04/18 07/05/18 07/06/18 06:59 06:59 06:59 Intake Total 46 1000 Output Total 1 Balance 46 999 Result Diagrams: 07/05/18 03:17 07/05/18 03:17 Phys Exam - Physical Examination Neck: no nodes, no JVD, supple, full ROM Respiratory: no wheezing, clear to auscultation bilateral Cardiovascular: RRR, no significant murmur Gastrointestinal: soft, non-tender, no distention, positive bowel sounds obse abdomen Musculoskeletal: no edema Dx/Plan (1) Upper GI bleed Code(s): K92.2 - GASTROINTESTINAL HEMORRHAGE, UNSPECIFIED Status: Acute (2) Acute alcohol intoxication with alcoholism Code(s): F10.229 - ALCOHOL DEPENDENCE WITH INTOXICATION, UNSPECIFIED Status: Acute (3) Anemia Code(s): D64.9 - ANEMIA, UNSPECIFIED Status: Acute - Plan pt to undergo egd today, on ppi -: pt s/p blood transfusion, also on levophed due to low hh -: pt depressed due to loss of son and * . Review of Systems - Review of Systems Respiratory: negative: Cough, Dry, Shortness of Breath, Hemoptysis, SOB with Excertion, Pleuritic Pain, Sputum, Wheezing Cardiovascular: negative: chest pain, palpitations, orthopnea, paroxysmal nocturnal dyspnea, edema, light headedness, other Gastrointestinal: Abdominal Pain Genitourinary: negative: Dysuria, Frequency, Incontinence, Hematuria, Retention , Other Musculoskeletal: negative: Neck Pain, Shoulder Pain, Arm Pain, Back Pain, Hand Pain, Leg Pain, Foot Pain, Other - Medications/Allergies Allergies/Adverse Reactions: Allergies Allergy/AdvReac Type Severity Reaction Status Date / Time acetaminophen [From Tylenol] Allergy Verified 07/05/18 03:36 ceftriaxone sodium Allergy Verified 07/05/18 03:36 [From Rocephin] levothyroxine sodium Allergy SWELLING Verified 07/05/18 03:36 moxifloxacin HCl Allergy Verified 07/05/18 03:36 [From Avelox] nicotine Allergy tachycardia, Verified 07/05/18 03:36 swelling Quinolones Allergy Verified 07/05/18 03:36 sulfamethoxazole Allergy Verified 07/05/18 03:36 [From Bactrim] trimethoprim [From Bactrim] Allergy Verified 07/05/18 03:36 Medications: Current Medications Albuterol Sulfate (Proventil Hfa) 2 puff INH Q6H PRN PRN Reason: SOB &/or Wheezing Pantoprazole Sodium 80 mg/Miscellaneous Medication 1 each/ Sodium Chloride 100 mls @ 10 mls/hr IVP INF [facility] Multivitamins 10 ml/ Thiamine HCl 100 mg/ Folic Acid 1 mg/Dextrose/Sodium Chloride 1,011.2 mls @ 0 mls/hr IV DAILY [facility] Last Admin: 07/05/18 09:29 Dose: 1,011.2 mls Norepinephrine Bitartrate (Levophed) 250 mls @ 0 mls/hr IVPB INF PRN; Protocol PRN Reason: Blood Pressure Levothyroxine Sodium (Synthroid) 112 mcg PO 0600 [facility] Last Admin: 07/05/18 05:47 Dose: 112 mcg Levothyroxine Sodium (Synthroid) 25 mcg PO 0600 [facility] Last Admin: 07/05/18 05:47 Dose: 25 mcg Lorazepam (Ativan) 2 mg SLOW IVP Q6H PRN PRN Reason: Anxiety/Agitation Ondansetron HCl (Zofran) 4 mg IVP Q6H PRN PRN Reason: Nausea/Vomiting Pantoprazole Sodium (Protonix) 40 mg PO DAILY [facility]
[2018-07-05] MEDS ORDERED: Lorazepam 2 MG/ML VIAL ONE (19:47)
[2018-07-05] MEDS: Sodium Chloride 0.9% 1,000 ML IV SCH (20:43)
[2018-07-05] MEDS: MEROPENEM 1 GM/50 ML 1 GM in Premix Bag 1 BAG IVPB SCH (20:44)
--- NOTE | 2018-07-05 21:16 | OP ---
DATE OF PROCEDURE: 07/05/2018 PROCEDURE PERFORMED: Esophagogastroduodenoscopy. PREMEDICATION: Given by Anesthesiology Department. PREPROCEDURE DIAGNOSES: 1. Severe anemia. 2. Presumed gastrointestinal bleeding. POSTPROCEDURE DIAGNOSES: 1. Two small erosions in lower esophagus. 2. Otherwise normal upper endoscopy. DESCRIPTION OF PROCEDURE: Written consents were obtained prior to procedure. After adequate sedation, forward-viewing endoscope was advanced down the duodenum under direct vision. The 2nd and 3rd portions appeared normal. The duodenal bulb appeared normal. The pylorus was patent. The gastric antrum, body, fundus, and cardia all appeared normal. Retroflexion did not show any abnormality. In the lower esophagus, two small erosions were noted, likely from reflux. The esophagus appeared normal without any varices. The instrument was then fully removed. Rectal exam performed showed external hemorrhoids in the 6 o'clock position without thrombosis or evidence of bleeding. Rectal vault was essentially empty except for some orangish mucousy stools. No kvng melena or red blood was noted. ASSESSMENT: 1. Two lower esophageal erosions, likely from gastroesophageal reflux disease. 2. Otherwise normal upper endoscopy without any source of upper bleeding. RECOMMENDATION: 1. As the patient had a normal colonoscopy within the last 2 years and without any active bleeding seen on current rectal exam, I would follow the patient along for any overt bleeding and hold off on any colonoscopy at this point. 2. Continue to trend H and H. 3. The patient can be transferred to floor when she is off the Levophed. 4. Paracentesis to rule out SBP. Job ID: [id number]
[2018-07-05] MEDS ORDERED: Diazepam 5 MG TAB PO PRN ×2 (22:39→22:43)
[2018-07-05] MEDS ORDERED: Thiamine HCl 200 MG/2 ML VIAL IM SCH (22:45)
[2018-07-05] MEDS ORDERED: Diazepam 5 MG TAB PO SCH (22:45)
[2018-07-05 23:07] LABS: Hemoglobin 9.9 g/dL (12.0-16.0)
[2018-07-05 23:27] LABS: Magnesium 1.4 mg/dL (1.6-2.6); Phosphorus 2.7 mg/dL (2.3-4.7); Potassium 3.1 mmol/L (3.5-5.1)
--- NOTE | 2018-07-06 01:26 | CON ---
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 She presented with GI blood loss. She has been admitted with GI bleeding in the past, felt to be related to alcoholic liver disease. I saw her this morning. She is still on Levophed, so another 1 L saline bolus was ordered. Unfortunately, she has been unable to quit drinking. PAST MEDICAL HISTORY: Remarkable for 1. Alcoholic liver disease. 2. Hypertension. 3. Lipid disorder. 4. Peripheral vascular disease. 5. Chronic kidney disease. 6. Obesity. SOCIAL HISTORY: She is a drinker, occasionally smokes. FAMILY HISTORY: Negative for lung disease in early age. REVIEW OF SYSTEMS: Ten point review of systems completed, remarkable for abdominal discomfort. PHYSICAL EXAMINATION: GENERAL: She has been admitted with GI bleeding in the past, felt to be related to alcoholic liver disease. VITAL SIGNS: Heart rate is 86, blood pressure 99/75, respiratory rate is in the teens, oximetry is 99% to 100%. HEENT: Pupils are equal. Extraocular movements are full. NECK: Supple without lymphadenopathy. LUNGS: Clear. HEART: Regular rhythm. S1 and S2 are normal. ABDOMEN: Diffusely tender. EXTREMITIES: Without clubbing, cyanosis, or edema. LABORATORY DATA: White count 18.1, hemoglobin 9.6, platelets 177. Sodium 142, potassium 2.3, chloride 107, bicarb 24, BUN 11, creatinine 1.05. INR is 1.5 yesterday. IMPRESSION: 1. Gastrointestinal blood loss, apparently she is scheduled for endoscopy today. 2. Abdominal tenderness about spontaneous bacterial peritonitis. She is not on any antimicrobial therapy, so I think it would be reasonable to start her on antimicrobial therapy pending paracentesis and cultures. If she has paracentesis even after antibiotics are started, a neutrophil predominance would argue for spontaneous bacterial peritonitis. She has an allergy reported to Rocephin, Avelox, and sulfa. Tygacil should be adequate an antibiotic without cross-reactivity. We will be happy to follow with the other physicians caring for. This is a 70 minute consult, with greater than 50% of time spent on unit coordinating care. Job ID: [id number] [facility]
[2018-07-06 04:28] LABS: Hemoglobin 9.9 g/dL (12.0-16.0)
[2018-07-06] MEDS: MEROPENEM 1 GM/50 ML 1 GM in Premix Bag 1 BAG IVPB SCH ×3 (05:37→21:30)
[2018-07-06] MEDS: Levothyroxine Sodium 25 MCG TAB PO SCH (05:38)
[2018-07-06] MEDS: Levothyroxine Sodium 112 MCG TAB PO SCH (05:38)
[2018-07-06] MEDS: Sodium Chloride 0.9% 1,000 ML IV SCH ×2 (07:45→10:14)
[2018-07-06] MEDS ORDERED: Magnesium 2 GM/NS 0.9% 100 ML 2 GM in Premix Bag 1 BAG IVPB SCH (08:45)
[2018-07-06] MEDS ORDERED: Thiamine 100 MG TAB PO SCH (09:00)
[2018-07-06] MEDS: Folic Acid 1 MG TAB PO SCH (09:10)
[2018-07-06] MEDS: Magnesium Oxide 400 MG TAB PO SCH (09:10)
[2018-07-06] MEDS: Multivitamin W/ Minerals 1 TAB PO SCH (09:10)
[2018-07-06] MEDS ORDERED: Magnesium 2 GM/50 ML 2 GM in Premix Bag 1 BAG IVPB SCH (09:30)
[2018-07-06 09:44] LABS: Anion Gap 11 mmol/L (10-20); BUN (Urea Nitrogen) 9 mg/dL (9.8-20.1); Calc. Creatinine Clearance 60 mL/min (70-130); Carbon Dioxide 23 mmol/L (22-29); Chloride 111 mmol/L (98-107); Estimated GFR-MDRD 45; Glucose 112 mg/dL (70-105); Sodium 142 mmol/L (136-145)
[2018-07-06 09:58] LABS: Potassium 2.9 mmol/L (3.5-5.1)
[2018-07-06 10:06] LABS: Anisocytosis SLIGHT = 6-15 cells (100X) (0-5/hpf); Band 8 % (5-11); Hemoglobin 9.5 g/dL (12.0-16.0); Hypochromia SLIGHT = 6-15 cells (100X) (0-5/hpf); Lymphocytes 9 % (21-51); MDiff Complete? YES; Macrocytosis SLIGHT = 6-15 cells (100X) (0-5/hpf); Mean Corpuscular HGB CONC 32.3 g/dL (32.0-36.0); Mean Corpuscular Hemoglobin 33.6 pg (27.0-31.0); Mean Platelet Volume 7.7 fL (7.4-10.4); Monocytes 3 % (0-10); Neutrophil 79 % (42-75); Platelet Count 181 thou/uL (130-400); Platelet Morphology Comment Appears Adequate; RBC Distribution Width 17.9 % (11.5-14.5); Red Blood Cell (RBC) Count 2.84 mill/uL (4.20-5.40)
[2018-07-06] MEDS: Multivitamins, Adult 10 ML, Thiamine HCl 100 MG, Folic Acid 1 MG in Dextrose 5 %-0.45 %... IV SCH (10:13)
[2018-07-06] MEDS ORDERED: Potassium Chloride 40 MEQ in Sodium Chloride 0.9% 250 ML 250 ML IVPB SCH (10:30)
--- NOTE | 2018-07-06 10:42 | PRG ---
DATE OF SERVICE: 07/06/2018 SUBJECTIVE: Ms. Green is somnolent this morning. OBJECTIVE: VITAL SIGNS: Blood pressure is 124/77, oximetry is 100% on room air, respiratory rate in the teens below 20s. LUNGS: Clear. HEART: Regular rhythm. ABDOMEN: Soft. She is less tender than yesterday. EXTREMITIES: Without edema. LABORATORY DATA: Hemoglobin is 9.9 this morning. Sodium 142, potassium is pending, chloride 111, bicarb 23, BUN 9, creatinine 1.22. Ammonia is 35. She is tentatively on the schedule for paracentesis. She actually has told nurses yesterday that she is ready to . Palliative care consult and hospice input needs to be considered. It is not entirely clear to me whether or not she is lucid enough to make herself a DNR today. This definitely should be approached when she is more awake, alert, and conversant. I suspect she is severely depressed. She has no family that is alive. She will be given IV thiamine instead of p.o. and most of her medications will be converted to IV while she is more somnolent. Job ID: [id number]
--- NOTE | 2018-07-06 13:03 | ULT ---
FExam: Ultrasound guided paracentesis HISTORY: Ascites COMPARISON: 09/24/2016 FINDINGS: Successful ultrasound-guided paracentesis. Total of 900 mL of yellow color ascites was aspi rated. TECHNIQUE: Consent obtained reformatory ultrasound-guided paracentesis. Right lower quadrant was deem ed appropriate. Skin was prepped and draped in a sterile fashion. 1% lidocaine, buffered with sodium bicarbonate was used for local anesthesia. Under ultrasound guidance, a 5 Turkmen 7 cm X3M Gameseh catheter i s advanced in the peritoneal space. A total of 900 mL of yellow-colored ascites was aspirated. No imm ediate or postprocedural complications IMPRESSION: Successful ultrasound-guided paracentesis.
[2018-07-06 13:18] LABS: BF Color Yellow; Body Fluid Source Ascites Body Fluid; Clarity Clear (Clear); Tube # EDTA
[2018-07-06 13:19] LABS: BF RBC Count - Manual 53 /cumm; BF WBC/Nonhematics Ct. - Manua 114 /cumm
[2018-07-06 13:32] LABS: BF Segmented Neutrophils 9 %; Cell Count Non Hematic 80 %; Lymphocytes 11 %
--- NOTE | 2018-07-06 14:34 | PDOC.PN ---
- Subjective Encounter Start Date: 07/06/18 Encounter Start Time: 14:32 Patient seen and examined, no family at bedside. - Objective Resuscitation Status - Order Detail: 07/05/18 00:42 Resuscitation Status Routine Resuscitation Status: DNAR: NO Resuscitation Discussed with: patient Vital Signs & Weight: Vital Signs (12 hours) Temp BP Pulse Ox 07/06/18 13:00 110/62 07/06/18 12:00 98.6 F 110/70 07/06/18 11:00 112/63 07/06/18 10:00 102/56 L 07/06/18 09:00 124/77 07/06/18 08:00 98.8 F 94/65 07/06/18 07:23 100 07/06/18 07:00 98.8 F 110/72 07/06/18 06:00 110/62 07/06/18 05:00 86/56 L 07/06/18 04:00 98.3 F 112/70 07/06/18 03:00 103/69 Weight Weight 166 lb 0.129 oz Most Recent Monitor Data Heart Rate from ECG 86 NIBP 110/62 NIBP BP-Mean 78 Respiration from ECG 12 SpO2 100 I&O: 07/05/18 07/06/18 07/07/18 06:59 06:59 06:59 Intake Total 46 3875 252.6 Output Total 14 1027 Balance 46 3861 -774.4 Result Diagrams: 07/06/18 09:18 07/06/18 09:18 Phys Exam - Physical Examination Constitutional: NAD HEENT: PERRLA, moist MMs, sclera anicteric Respiratory: no wheezing, no rales, no rhonchi tachycardia, systolic ejection murmur faint Gastrointestinal: soft, non-tender, no distention Musculoskeletal: pulses present, edema present (trace) Dx/Plan (1) Cirrhosis Code(s): K74.60 - UNSPECIFIED CIRRHOSIS OF LIVER Status: Acute (2) Hypovolemia Code(s): E86.1 - HYPOVOLEMIA Status: Acute (3) Anemia Code(s): D64.9 - ANEMIA, UNSPECIFIED Status: Acute - Plan * overall prognosis very poor, patient keeps drinking * will consult palliative care * transfer to [facility] off levophed and doing well * paracentesis for today * continue all other plan of care for now without any changes * no family at bedside, patient is AAO to person and place only and confused and sleepy
--- NOTE | 2018-07-06 15:47 | PRG ---
DATE OF SERVICE: 07/06/2018 SUBJECTIVE: Ms. Green is sleepy, but arousable and conversant this afternoon. No complaints other than ongoing discomfort from abdominal distention. No nausea. She is tolerating her liquid diet. She has been depressed. She has remained hemodynamically stable. OBJECTIVE: VITAL SIGNS: Blood pressure 110/62, pulse 86, 100% oxygen saturation on room air, temperature is 98.6. GENERAL: Somnolent, but arousable. No acute distress. HEART: Regular rate and rhythm. LUNGS: Clear to auscultation bilaterally. ABDOMEN: Distended, not tense, nontender to palpation throughout. EXTREMITIES: No peripheral edema. LABORATORY STUDIES: WBC 15.0, hemoglobin 9.5, platelets 181. INR 1.5. Sodium 142, potassium 2.9, BUN 9, creatinine 1.22. Ammonia only 35. Total bilirubin 6.6, alkaline phosphatase 205, AST 75, ALT 19. Peritoneal fluid analysis demonstrates only 114 WBCs, 9% neutrophils. Alcohol level on admission was 73. ASSESSMENT AND PLAN: 1. Anemia, stable. Note Dr. Villegas's EGD from yesterday was essentially negative for any bleeding lesion. Overall, hemoglobin has really been stable over the past couple of months. Reported rectal bleeding is likely secondary to known internal hemorrhoids. Her last colonoscopy was just a year and a half ago. No need to repeat any colonoscopy. 2. Alcoholic liver disease. I discussed with the patient that she cannot be expected to do well if she is going to continue drinking alcohol. Bilirubin is elevated to 6.5, essentially stable from her previous admission. Predominant manifestation of her cirrhosis is the ascites. Note that the paracentesis is negative for SBP. The patient is going to need to abstain from all alcohol, be on a low-sodium diet. She would probably also benefit from a low-dose diuretic going forward. We will start her on spironolactone 50 mg daily. Please call back with any questions or concerns. Job ID: [id number]
[2018-07-06] MEDS ORDERED: Pantoprazole 80 MG, Admixture Fee 1 EACH in Sodium Chloride 0.9% 100 ML IVP SCH (17:45)
[2018-07-06] MEDS: Diazepam 5 MG TAB PO PRN (21:09)
[2018-07-07] MEDS: Sodium Chloride 0.9% 1,000 ML IV SCH ×3 (00:11→20:54)
[2018-07-07] MEDS: Levothyroxine 100 MCG SDV IVP SCH (05:09)
[2018-07-07] MEDS: MEROPENEM 1 GM/50 ML 1 GM in Premix Bag 1 BAG IVPB SCH ×2 (05:10→13:45)
[2018-07-07] MEDS: Diazepam 5 MG TAB PO PRN (05:11)
[2018-07-07] MEDS: Pantoprazole 40 MG VIAL IVP SCH (08:44)
[2018-07-07] MEDS: Multivitamin W/ Minerals 1 TAB PO SCH (08:44)
[2018-07-07] MEDS: Folic Acid 1 MG TAB PO SCH (08:44)
[2018-07-07] MEDS: Magnesium Oxide 400 MG TAB PO SCH (08:44)
--- NOTE | 2018-07-07 13:37 | PDOC.PN ---
- Subjective Encounter Start Date: 07/07/18 Encounter Start Time: 13:34 Patient seen and examined, no new issues or complaints, all questions answered. - Objective Resuscitation Status - Order Detail: 07/05/18 00:42 Resuscitation Status Routine Resuscitation Status: DNAR: NO Resuscitation Discussed with: patient Vital Signs & Weight: Vital Signs (12 hours) Temp BP 07/07/18 11:08 98.4 F 07/07/18 07:21 98.2 F 07/07/18 06:00 123/76 07/07/18 05:00 120/75 07/07/18 04:00 98.1 F 104/67 07/07/18 03:00 119/68 07/07/18 02:00 93/72 Weight Weight 172 lb 12.8 oz Most Recent Monitor Data Heart Rate from ECG 78 NIBP 129/80 NIBP BP-Mean 96 Respiration from ECG 12 SpO2 100 I&O: 07/06/18 07/07/18 07/08/18 06:59 06:59 06:59 Intake Total 3875 2871.6 Output Total 14 1252 Balance 3861 1619.6 Result Diagrams: 07/06/18 09:18 07/06/18 09:18 Phys Exam - Physical Examination Constitutional: NAD HEENT: PERRLA, moist MMs, sclera anicteric Neck: no nodes, no JVD, supple Respiratory: no wheezing Cardiovascular: RRR, no significant murmur, no rub Gastrointestinal: soft, non-tender, no distention, positive bowel sounds +fluid wave Musculoskeletal: pulses present, edema present (trace) Dx/Plan (1) Cirrhosis Code(s): K74.60 - UNSPECIFIED CIRRHOSIS OF LIVER Status: Acute (2) Hypovolemia Code(s): E86.1 - HYPOVOLEMIA Status: Acute (3) Anemia Code(s): D64.9 - ANEMIA, UNSPECIFIED Status: Acute - Plan * at this point in time will transfer patient to the floor * she's more with it today, case also d/w with her sister Ms. Naye Yuen at [phone], the sister states that she understood whats going on. States that the patient is unlikely to quit drinking * the patient has been admitted several times as she is unable to stop drinking * she's got pretty bad liver cirrhosis at this point in time * given that she's unlikely to quit drinking and her liver injury being this bad , palliative/hospice options were discussed with her sister who stated she would be interested in knowing more information * at this point in time will continue current plan of care, consult palliative care and transfer patient to medical floor * DC plans in 24-48hrs once family has had a chance to discuss palliation. * case and plan d/w patient at length as well as sister(via phone), they both understood and agreed with this plan.
--- NOTE | 2018-07-07 16:03 | PRG ---
DATE OF SERVICE: 07/07/2018 SUBJECTIVE: Ms. Green feels about the same. She is depressed, energy level is low, a bit of abdominal pain after eating. She has remained hemodynamically stable. Palliative care/hospice has been consulted. OBJECTIVE: VITAL SIGNS: Blood pressure 119/75, pulse 81, temperature 98.4, and 100% oxygen saturation on 2 L nasal cannula. GENERAL: Depressed, sleepy, but arousable. No acute distress. HEART: Regular rate and rhythm. LUNGS: Clear to auscultation bilaterally. ABDOMEN: Mildly distended with ascites. Soft and nontender to palpation. EXTREMITIES: No peripheral edema. ASSESSMENT AND PLAN: 1. Alcoholic cirrhosis, decompensated. 2. Ongoing alcohol abuse. 3. Ascites. I again discussed with Ms. Green that she is really going to need to abstain from all alcohol going forward. She is not confident that she is going to be able to do this. I see the palliative/hospice care has been consulted and I think this is reasonable, particularly if she is going to continue to drink. With regard to the ascites, I think she should probably go back on a low-dose spironolactone 50 mg daily. No other recommendations from GI/liver perspective at this time. Job ID: [id number]
[2018-07-07] MEDS: Potassium Chloride 20 MEQ TAB PO SCH (17:04)
--- NOTE | 2018-07-07 17:28 | PRG ---
DATE OF SERVICE: 07/07/2018 SUBJECTIVE: Monse Green is much more alert today. I am told that she may receive Valium night before last and that is why she was sleepy yesterday morning, although the nurse yesterday morning told me she had not received anything and I will see Valium on her MAR, only Ativan. A 2 mg dose is actually a pretty big dose for her in my opinion, so I will cut this dose back. I actually found the Valium order and I would discontinue this given its long half life. OBJECTIVE: LUNGS: Clear today. HEART: Regular rhythm. ABDOMEN: Soft. Her peritoneal fluid was not consistent with peritonitis, so her antimicrobial therapy can be discontinued. She is stable to move out of the intermediate care unit in my opinion. It is extremely likely she will continue to drink. She is almost suicidal, but actually just horribly depressed over the loss of her and her son and she has no reason to keep living, so she just keeps drinking. She has no good outcome to this in the near future in my opinion. Job ID: [id number]
[2018-07-07] MEDS: Lorazepam 2 MG/ML VIAL SLOW IVP PRN (18:42)
[2018-07-07] MEDS: Morphine 2 MG/ML SYRINGE SLOW IVP PRN (23:45)
[2018-07-08] MEDS: Morphine 2 MG/ML SYRINGE SLOW IVP PRN ×2 (04:58→21:24)
[2018-07-08 04:59] LABS: #Basophils 0.1 thou/uL (0.0-0.2); #Eosinphils 0.1 thou/uL (0.0-0.7); #Lymphocytes 1.7 thou/uL (1.20-3.40); #Monocytes 1.1 thou/uL (0.11-0.59); #Neutrophils 9.3 thou/uL (1.40-6.50); %Basophils 1.1 % (0.0-1.0); %Eosinophils 0.9 % (0.0-10.0); %Monocytes 8.9 % (0.0-10.0); %Neutrophils 75.1 % (42.0-75.0); Hemoglobin 9.2 g/dL (12.0-16.0); Mean Corpuscular HGB CONC 32.3 g/dL (32.0-36.0); Mean Corpuscular Hemoglobin 34.8 pg (27.0-31.0); Mean Platelet Volume 7.3 fL (7.4-10.4); Platelet Count 163 thou/uL (130-400); RBC Distribution Width 18.1 % (11.5-14.5); Red Blood Cell (RBC) Count 2.63 mill/uL (4.20-5.40); White Blood Cell (WBC) Count 12.4 thou/uL (4.8-10.8)
[2018-07-08] MEDS: Levothyroxine 100 MCG SDV IVP SCH (05:02)
[2018-07-08 05:18] LABS: ALT (SGPT) 22 U/L (8-55); AST (SGOT) 61 U/L (5-34); Albumin 2.2 g/dL (3.5-5.0); Alkaline Phosphatase 153 U/L (40-150); Anion Gap 10 mmol/L (10-20); BUN (Urea Nitrogen) 7 mg/dL (9.8-20.1); Bilirubin, Total 9.7 mg/dL (0.2-1.2); Calc. Creatinine Clearance 72 mL/min (70-130); Calcium 7.9 mg/dL (7.8-10.44); Carbon Dioxide 21 mmol/L (22-29); Chloride 113 mmol/L (98-107); Estimated GFR-MDRD 53; Globulin 3.6 g/dL (2.4-3.5); Glucose 87 mg/dL (70-105); Potassium 3.6 mmol/L (3.5-5.1); Protein, Total 5.8 g/dL (6.0-8.3); Sodium 140 mmol/L (136-145)
[2018-07-08] MEDS: Spironolactone 25 MG TAB PO SCH (08:29)
[2018-07-08] MEDS: Magnesium Oxide 400 MG TAB PO SCH (08:29)
[2018-07-08] MEDS: Folic Acid 1 MG TAB PO SCH (08:29)
[2018-07-08] MEDS: Potassium Chloride 20 MEQ TAB PO SCH ×2 (08:29→17:08)
[2018-07-08] MEDS: Multivitamin W/ Minerals 1 TAB PO SCH (08:29)
[2018-07-08] MEDS: Pantoprazole 40 MG VIAL IVP SCH (08:30)
[2018-07-08] MEDS: Sodium Chloride 0.9% 1,000 ML IV SCH ×3 (10:30→20:42)
--- NOTE | 2018-07-08 12:19 | PDOC.PN ---
- Subjective Encounter Start Date: 07/08/18 Encounter Start Time: 12:18 Patient seen and examined, no new issues or complaints. - Objective Resuscitation Status - Order Detail: 07/05/18 00:42 Resuscitation Status Routine Resuscitation Status: DNAR: NO Resuscitation Discussed with: patient Vital Signs & Weight: Vital Signs (12 hours) Temp Pulse Resp BP BP Pulse Ox 07/08/18 11:43 97.7 F 81 19 112/75 94 L 07/08/18 08:25 107/67 93 L 07/08/18 07:12 97.7 F 73 20 107/67 93 L 07/08/18 04:00 97.9 F 75 18 103/63 103/63 95 Weight Weight 172 lb 12.8 oz Most Recent Monitor Data Heart Rate from ECG 81 NIBP 119/75 NIBP BP-Mean 89 Respiration from ECG 14 SpO2 100 I&O: 07/07/18 07/08/18 07/09/18 06:59 06:59 06:59 Intake Total 2871.6 1690 Output Total 1252 Balance 1619.6 1690 Result Diagrams: 07/08/18 04:50 07/08/18 04:50 Phys Exam - Physical Examination Constitutional: NAD HEENT: PERRLA, moist MMs, sclera anicteric Neck: no nodes, no JVD, supple Respiratory: no wheezing, no rales, no rhonchi Cardiovascular: RRR, no significant murmur, no rub Gastrointestinal: soft, non-tender, no distention Musculoskeletal: pulses present, edema present Dx/Plan (1) Cirrhosis Code(s): K74.60 - UNSPECIFIED CIRRHOSIS OF LIVER Status: Acute (2) Hypovolemia Code(s): E86.1 - HYPOVOLEMIA Status: Acute (3) Anemia Code(s): D64.9 - ANEMIA, UNSPECIFIED Status: Acute - Plan * continue current plan of care, awaiting placement * call placed to sister today, no answer, not sure where to discharge patient at this point in time * will consult PT today to see if she qualifies for SNF * DC plans in 24-48hrs, once placement arranged * case and plan d/w patient at length, she understood and agreed with this plan.
--- NOTE | 2018-07-08 20:39 | PRG ---
DATE OF SERVICE: 07/08/2018 SUBJECTIVE: Monse Green is afebrile. OBJECTIVE: VITAL SIGNS: Heart rate 79, blood pressure 103/66, respiratory rate 17, oximetry is 95. LABORATORY DATA: Hemoglobin is stable at 9.2. Creatinine is stable at 1.07. IMPRESSION: 1. Advanced liver disease with ongoing alcohol use. 2. Severe depression. 3. Status post upper endoscopy with no active bleeding. 4. Status post paracentesis with no evidence of spontaneous bacterial peritonitis. 5. Electrolyte abnormalities as expected given that she drinks more than she eats. These are, for the most part corrected. We will sign off. Job ID: [id number]
[2018-07-09] MEDS: Morphine 2 MG/ML SYRINGE SLOW IVP PRN ×4 (02:39→21:13)
[2018-07-09] MEDS: Sodium Chloride 0.9% 1,000 ML IV SCH ×2 (04:15→06:18)
[2018-07-09] MEDS: Levothyroxine 100 MCG SDV IVP SCH (06:21)
[2018-07-09] MEDS: Pantoprazole 40 MG VIAL IVP SCH (10:12)
--- NOTE | 2018-07-09 14:57 | PDOC.PN ---
- Subjective Encounter Start Date: 07/09/18 Encounter Start Time: 14:55 Patient seen and examined, states she would like to consider going to a NH and hospice there, her sister would like to take her to NH but the patient states that she doesn't want to go to [place], she wants to go hospice here. All questions answered. - Objective Resuscitation Status - Order Detail: 07/05/18 00:42 Resuscitation Status Routine Resuscitation Status: DNAR: NO Resuscitation Discussed with: patient Vital Signs & Weight: Vital Signs (12 hours) Temp Pulse Resp BP BP Pulse Ox 07/09/18 08:30 113/73 07/09/18 07:29 98.4 F 81 19 113/73 93 L 07/09/18 04:00 109/69 Weight Weight 172 lb 12.8 oz Most Recent Monitor Data Heart Rate from ECG 81 NIBP 119/75 NIBP BP-Mean 89 Respiration from ECG 14 SpO2 100 I&O: 07/08/18 07/09/18 07/10/18 06:59 06:59 06:59 Intake Total 1690 1850 Balance 1690 1850 Result Diagrams: 07/08/18 04:50 07/08/18 04:50 Phys Exam - Physical Examination Constitutional: NAD HEENT: PERRLA, moist MMs, sclera anicteric Neck: no nodes, no JVD, supple Respiratory: no wheezing, no rales, no rhonchi Cardiovascular: RRR, no significant murmur, no rub Gastrointestinal: soft, non-tender, no distention, positive bowel sounds Musculoskeletal: pulses present, edema present Dx/Plan (1) Cirrhosis Code(s): K74.60 - UNSPECIFIED CIRRHOSIS OF LIVER Status: Acute (2) Hypovolemia Code(s): E86.1 - HYPOVOLEMIA Status: Acute (3) Anemia Code(s): D64.9 - ANEMIA, UNSPECIFIED Status: Acute - Plan * patient states she would like to consider going to a senior living and see if she can have hospice there, call placed to patient's sister who also talked with the patient, patient was offered the opportunity to have PT done and considr going to SNF for therapy vs NH + hospice vs going to [place] with her sister * patient states she'd like to go to [place] with hospice, does not want to go to SNF for PT or to [place] with her family * will consult CM to help arrange if possible * case and plan d/w patient at length, she understood and agreed with this plan.
[2018-07-09] MEDS: Potassium Chloride 20 MEQ TAB PO SCH ×3 (15:03→18:35)
[2018-07-09] MEDS: Spironolactone 25 MG TAB PO SCH (15:10)
[2018-07-09] MEDS: Magnesium Oxide 400 MG TAB PO SCH ×2 (15:10→15:27)
[2018-07-09] MEDS: Lorazepam 2 MG/ML VIAL SLOW IVP PRN (15:12)
[2018-07-09] MEDS: Multivitamin W/ Minerals 1 TAB PO SCH (15:26)
[2018-07-09] MEDS: Folic Acid 1 MG TAB PO SCH (15:26)
[2018-07-10] MEDS: Sodium Chloride 0.9% 1,000 ML IV SCH ×2 (00:15→10:15)
[2018-07-10] MEDS: Levothyroxine 100 MCG SDV IVP SCH (06:25)
--- NOTE | 2018-07-10 08:00 | CT ---
CT OF HEAD NONCONTRAST: COMPARISON: 06/22/2018. INDICATION: History of fall with head injury and pain. FINDINGS: There is stable mild atrophy. Compensatory dilatation of the ventricular system is present. No acut e intracranial hemorrhage mass effect, or midline shift. There is mild chronic microvascular ischemi c disease. Posterior, high right parietal scalp hematoma is present at and to the right of midline. IMPRESSION: 1. No acute intracranial hemorrhage or mass effect. 2. Posterior high right parietal scalp hematoma. 3. Additional details are described above. POS: RYAN
[2018-07-10] MEDS: Potassium Chloride 20 MEQ TAB PO SCH ×2 (08:46→17:18)
[2018-07-10] MEDS: Thiamine 100 MG TAB PO SCH (08:46)
[2018-07-10] MEDS: Magnesium Oxide 400 MG TAB PO SCH (08:46)
[2018-07-10] MEDS: Multivitamin W/ Minerals 1 TAB PO SCH (08:47)
[2018-07-10] MEDS: Folic Acid 1 MG TAB PO SCH (08:47)
[2018-07-10] MEDS: Spironolactone 25 MG TAB PO SCH (08:47)
--- NOTE | 2018-07-10 11:52 | PDOC.PN ---
- Subjective Encounter Start Date: 07/10/18 Encounter Start Time: 11:50 Patient seen and examined, no new issues. - Objective Resuscitation Status - Order Detail: 07/05/18 00:42 Resuscitation Status Routine Resuscitation Status: DNAR: NO Resuscitation Discussed with: patient Vital Signs & Weight: Vital Signs (12 hours) Temp Pulse Resp BP BP BP Pulse Ox 07/10/18 11:44 98.2 F 84 16 109/70 99 07/10/18 08:00 137/70 98 07/10/18 07:23 98.2 F 86 16 98/59 L 98 07/10/18 04:00 98.0 F 86 20 106/68 107/66 97 07/10/18 00:00 98.3 F 84 20 106/68 99/62 95 Weight Weight 172 lb 12.8 oz Most Recent Monitor Data Heart Rate from ECG 81 NIBP 119/75 NIBP BP-Mean 89 Respiration from ECG 14 SpO2 100 I&O: 07/09/18 07/10/18 07/11/18 06:59 06:59 06:59 Intake Total 1850 Balance 1850 Result Diagrams: 07/08/18 04:50 07/08/18 04:50 Phys Exam - Physical Examination Constitutional: NAD HEENT: PERRLA, moist MMs, sclera anicteric Neck: no nodes, no JVD, supple Respiratory: no wheezing, no rales, no rhonchi Cardiovascular: RRR, no significant murmur, no rub Gastrointestinal: soft, non-tender, no distention Musculoskeletal: no edema, pulses present Dx/Plan (1) Cirrhosis Code(s): K74.60 - UNSPECIFIED CIRRHOSIS OF LIVER Status: Acute (2) Hypovolemia Code(s): E86.1 - HYPOVOLEMIA Status: Acute (3) Anemia Code(s): D64.9 - ANEMIA, UNSPECIFIED Status: Acute - Plan * Patient states she [facility] not [facility] to [facility], does not have enough money to go home and live by herself, is nonfunded * states she would prefer hospice care * d/w CM regarding funding, looking into [facility] options, if none available then patient was infromed she will have to go to [place] to live with her sister * case d/w sister as well who is willing to accept her * case and plan d/w patient at length, she understood and agree dwith this plan .
[2018-07-10] MEDS: Morphine 2 MG/ML SYRINGE SLOW IVP PRN (22:06)
[2018-07-11] MEDS: Levothyroxine 100 MCG SDV IVP SCH (05:48)
[2018-07-11] MEDS: Magnesium Oxide 400 MG TAB PO SCH (08:31)
[2018-07-11] MEDS: Folic Acid 1 MG TAB PO SCH (08:31)
[2018-07-11] MEDS: Thiamine 100 MG TAB PO SCH (08:31)
[2018-07-11] MEDS: Spironolactone 25 MG TAB PO SCH (08:31)
[2018-07-11] MEDS: Potassium Chloride 20 MEQ TAB PO SCH ×2 (08:31→16:36)
[2018-07-11] MEDS: Multivitamin W/ Minerals 1 TAB PO SCH (08:31)
[2018-07-11] MEDS: Morphine 2 MG/ML SYRINGE SLOW IVP PRN ×2 (14:48→21:33)
[2018-07-11] MEDS ORDERED: Milk Of Magnesia 30 ML UDCUP PO PRN (16:34)
[2018-07-11] MEDS ORDERED: Rifaximin 550 MG TAB PO SCH (21:00)
--- NOTE | 2018-07-11 22:03 | PDOC.PN ---
- Subjective Encounter Start Date: 07/11/18 - Objective Resuscitation Status - Order Detail: 07/05/18 00:42 Resuscitation Status Routine Resuscitation Status: DNAR: NO Resuscitation Discussed with: patient Vital Signs & Weight: Vital Signs (12 hours) Temp Pulse Resp BP BP BP Pulse Ox 07/11/18 21:30 110/61 07/11/18 20:21 98.2 F 81 16 96/53 L 95 07/11/18 16:38 99/60 07/11/18 16:37 99/60 07/11/18 16:00 98.5 F 78 16 84/55 L 96 07/11/18 14:39 109/71 07/11/18 13:18 114/75 07/11/18 12:25 98.2 F 84 16 114/75 96 Weight Weight 172 lb 12.8 oz Most Recent Monitor Data Heart Rate from ECG 81 NIBP 119/75 NIBP BP-Mean 89 Respiration from ECG 14 SpO2 100 I&O: 07/10/18 07/11/18 07/12/18 06:59 06:59 06:59 Intake Total 820 600 Output Total 0 Balance 820 600 Result Diagrams: 07/08/18 04:50 07/08/18 04:50 Dx/Plan (1) Upper GI bleed Code(s): K92.2 - GASTROINTESTINAL HEMORRHAGE, UNSPECIFIED Status: Acute (2) Acute alcohol intoxication with alcoholism Code(s): F10.229 - ALCOHOL DEPENDENCE WITH INTOXICATION, UNSPECIFIED Status: Acute (3) Anemia Code(s): D64.9 - ANEMIA, UNSPECIFIED Status: Acute - Plan * .
[2018-07-12] MEDS: Levothyroxine 100 MCG SDV IVP SCH (07:16)
[2018-07-12] MEDS: Potassium Chloride 20 MEQ TAB PO SCH ×2 (08:13→17:11)
[2018-07-12] MEDS: Multivitamin W/ Minerals 1 TAB PO SCH (08:13)
[2018-07-12] MEDS: Magnesium Oxide 400 MG TAB PO SCH (08:13)
[2018-07-12] MEDS: Thiamine 100 MG TAB PO SCH (08:14)
[2018-07-12] MEDS: Spironolactone 25 MG TAB PO SCH (08:14)
[2018-07-12] MEDS: Folic Acid 1 MG TAB PO SCH (08:14)
[2018-07-12 09:49] LABS: #Eosinphils 0.2 thou/uL (0.0-0.7); #Lymphocytes 1.3 thou/uL (1.20-3.40); %Basophils 0.4 % (0.0-1.0); %Eosinophils 1.5 % (0.0-10.0); %Lymphocytes 11.3 % (21.0-51.0); %Monocytes 8.6 % (0.0-10.0); %Neutrophils 78.3 % (42.0-75.0); Hemoglobin 9.2 g/dL (12.0-16.0); Mean Corpuscular HGB CONC 32.3 g/dL (32.0-36.0); Mean Corpuscular Hemoglobin 34.8 pg (27.0-31.0); Mean Platelet Volume 8.1 fL (7.4-10.4); Platelet Count 154 thou/uL (130-400); RBC Distribution Width 18.2 % (11.5-14.5); Red Blood Cell (RBC) Count 2.65 mill/uL (4.20-5.40); White Blood Cell (WBC) Count 11.5 thou/uL (4.8-10.8)
[2018-07-12 10:10] LABS: ALT (SGPT) 23 U/L (8-55); AST (SGOT) 62 U/L (5-34); Albumin 2.2 g/dL (3.5-5.0); Alkaline Phosphatase 149 U/L (40-150); Anion Gap 11 mmol/L (10-20); BUN (Urea Nitrogen) 7 mg/dL (9.8-20.1); Bilirubin, Total 12.3 mg/dL (0.2-1.2); Calc. Creatinine Clearance 87 mL/min (70-130); Calcium 8.7 mg/dL (7.8-10.44); Carbon Dioxide 19 mmol/L (22-29); Chloride 112 mmol/L (98-107); Estimated GFR-MDRD 66; Glucose 83 mg/dL (70-105); Potassium 5.1 mmol/L (3.5-5.1); Protein, Total 6.2 g/dL (6.0-8.3); Sodium 137 mmol/L (136-145)
[2018-07-12 10:17] LABS: Magnesium 0.9 mg/dL (1.6-2.6)
[2018-07-12 10:18] LABS: Anisocytosis SLIGHT = 6-15 cells (100X) (0-5/hpf); MDiff Complete? YES; Macrocytosis SLIGHT = 6-15 cells (100X) (0-5/hpf); Platelet Morphology Comment Appears Adequate
[2018-07-12] MEDS ORDERED: Magnesium 2 GM/50 ML 2 GM in Premix Bag 1 BAG IVPB SCH ×2 (11:15→15:00)
[2018-07-12] MEDS: Morphine 2 MG/ML SYRINGE SLOW IVP PRN ×2 (12:09→19:18)
--- NOTE | 2018-07-12 21:20 | PDOC.PN ---
- Subjective Encounter Start Date: 07/12/18 Encounter Start Time: 11:15 Subjective: pt up in bed her diarrhea has improved - Objective Resuscitation Status - Order Detail: 07/05/18 00:42 Resuscitation Status Routine Resuscitation Status: DNAR: NO Resuscitation Discussed with: patient Vital Signs & Weight: Vital Signs (12 hours) Temp Pulse Pulse Resp BP BP BP 07/12/18 19:56 98.6 F 79 20 07/12/18 16:03 115/71 07/12/18 15:30 98.3 F 80 17 115/71 07/12/18 12:38 108/63 07/12/18 12:07 108/63 07/12/18 12:00 98.5 F 82 16 108/66 07/12/18 11:34 82 109/66 BP Pulse Ox 07/12/18 19:56 105/63 93 L 07/12/18 16:03 07/12/18 15:30 100 07/12/18 12:38 07/12/18 12:07 07/12/18 12:00 100 07/12/18 11:34 Weight Weight 172 lb 12.8 oz Most Recent Monitor Data Heart Rate from ECG 81 NIBP 119/75 NIBP BP-Mean 89 Respiration from ECG 14 SpO2 100 I&O: 07/11/18 07/12/18 07/13/18 06:59 06:59 06:59 Intake Total 568 967 7476 Output Total 0 0 Balance 666 322 0332 Result Diagrams: 07/12/18 09:31 07/12/18 09:31 Phys Exam - Physical Examination Neck: no nodes, no JVD, supple, full ROM Respiratory: no wheezing, no rales, no rhonchi, wheezing present, clear to auscultation bilateral Cardiovascular: RRR, no significant murmur, no rub, gallop, irregular Gastrointestinal: soft, non-tender, no distention, positive bowel sounds Dx/Plan (1) Upper GI bleed Code(s): K92.2 - GASTROINTESTINAL HEMORRHAGE, UNSPECIFIED Status: Acute (2) Acute alcohol intoxication with alcoholism Code(s): F10.229 - ALCOHOL DEPENDENCE WITH INTOXICATION, UNSPECIFIED Status: Acute (3) Anemia Code(s): D64.9 - ANEMIA, UNSPECIFIED Status: Acute (4) Hypomagnesemia Code(s): E83.42 - HYPOMAGNESEMIA Status: Acute - Plan will replace magnesium. will hold her potassium -: her bili level is high. will send home in am with hospice * . Review of Systems - Review of Systems Respiratory: negative: Cough, Dry, Shortness of Breath, Hemoptysis, SOB with Excertion, Pleuritic Pain, Sputum, Wheezing Cardiovascular: negative: chest pain, palpitations, orthopnea, paroxysmal nocturnal dyspnea, edema, light headedness, other Gastrointestinal: Abdominal Pain - Medications/Allergies Allergies/Adverse Reactions: Allergies Allergy/AdvReac Type Severity Reaction Status Date / Time acetaminophen [From Tylenol] Allergy Verified 07/05/18 03:36 ceftriaxone sodium Allergy Verified 07/05/18 03:36 [From Rocephin] levothyroxine sodium Allergy SWELLING Verified 07/05/18 03:36 moxifloxacin HCl Allergy Verified 07/05/18 03:36 [From Avelox] nicotine Allergy tachycardia, Verified 07/05/18 03:36 swelling Quinolones Allergy Verified 07/05/18 03:36 sulfamethoxazole Allergy Verified 07/05/18 03:36 [From Bactrim] trimethoprim [From Bactrim] Allergy Verified 07/05/18 03:36 Medications: Current Medications Albuterol Sulfate (Proventil Hfa) 2 puff INH Q6H PRN PRN Reason: SOB &/or Wheezing Folic Acid (Folvite) 1 mg PO DAILY [facility] Last Admin: 07/12/18 08:14 Dose: 1 mg Iron/Minerals/Multivitamins (Theragran M) 1 tab PO DAILY [facility] Last Admin: 07/12/18 08:13 Dose: 1 tab Levothyroxine Sodium (Synthroid) 50 mcg IVP 0600 [facility] Last Admin: 07/12/18 07:16 Dose: Not Given Lorazepam (Ativan) 1 mg SLOW IVP Q6H PRN PRN Reason: Anxiety/Agitation Last Admin: 07/09/18 15:12 Dose: 1 mg Magnesium Hydroxide (Milk Of Magnesium) 30 ml PO DAILYPRN PRN PRN Reason: Constipation Last Admin: 07/11/18 16:54 Dose: 30 ml Magnesium Oxide (Magnesium Oxide) 400 mg PO DAILY [facility] Last Admin: 07/12/18 08:13 Dose: 400 mg Morphine Sulfate (Morphine) 2 mg SLOW IVP Q2H PRN PRN Reason: Moderate to Severe Pain (6-10) Last Admin: 07/12/18 19:18 Dose: 2 mg Ondansetron HCl (Zofran) 4 mg IVP Q6H PRN PRN Reason: Nausea/Vomiting Pantoprazole Sodium (Protonix) 40 mg PO DAILY [facility] Last Admin: 07/12/18 08:14 Dose: 40 mg Sodium Chloride (Flush - Normal Saline) 10 ml IVF Q12HR [facility] Last Admin: 07/12/18 19:19 Dose: 10 ml Sodium Chloride (Flush - Normal Saline) 10 ml IVF PRN PRN PRN Reason: Saline Flush Spironolactone (Aldactone) 50 mg PO QAM-WM [facility] Last Admin: 07/12/18 08:14 Dose: 50 mg Thiamine HCl (Thiamine) 100 mg PO DAILY [facility] Last Admin: 07/12/18 08:14 Dose: 100 mg
[2018-07-13] MEDS: Morphine 2 MG/ML SYRINGE SLOW IVP PRN ×4 (02:29→13:30)
[2018-07-13] MEDS: Levothyroxine 100 MCG SDV IVP SCH (05:22)
[2018-07-13] MEDS: Thiamine 100 MG TAB PO SCH (09:12)
[2018-07-13] MEDS: Magnesium Oxide 400 MG TAB PO SCH (09:12)
[2018-07-13] MEDS: Spironolactone 25 MG TAB PO SCH (09:12)
[2018-07-13] MEDS: Multivitamin W/ Minerals 1 TAB PO SCH (09:12)
[2018-07-13] MEDS: Folic Acid 1 MG TAB PO SCH (09:12)
[2018-07-13 14:33] VITALS: BMI 30.6
[2018-07-13 15:31] VITALS: BP 115/75; TEMP 98.4
--- NOTE | 2018-07-13 15:41 | PDOC.EVN ---
Event Note - Event Note Event Note: spoke with sister naye, updated that she needs to follow up with her primary for her thyroid meds. Naye was not aware that pt had no insurance and could not afford meds, especially since pt's home is paid and she does get an allowance. Naye will call pt's neighbour to remove alcohol from her home and also she is working on getting pt's animals a home. Naye has tried to get her to come live with them in [place] but pt does not want to go.
--- NOTE | 2018-07-14 05:32 | DIS ---
DATE OF ADMISSION: 07/05/2018 DATE OF DISCHARGE: 07/13/2018 DISCHARGE DIAGNOSES: As of the following; 1. Upper gastrointestinal bleed. 2. Acute alcohol intoxication. 3. Anemia. 4. Cirrhosis. HOSPITAL COURSE: The patient is a 58-year-old female, who initially presented to the hospital on July 05 with possible upper GI bleed. The patient at this time was admitted into the ICU. At this time, her hemoglobin was 7.6. She was transfused some blood due to her baseline being at 13. The patient also was hypotensive and required to being put on Levophed for some time. She was started on the octreotide drip and also on the Protonix drip. Initially, she did have significant leukocytosis, and was put on broad-spectrum antibiotics. She did undergo an endoscopy done by GI, which indicated two lower esophageal erosions, most likely from reflux, otherwise it did not indicate any other acute bleeding sources. Due to the overt bleeding, no colonoscopy was planned. She also underwent an abdominal paracentesis. Her paracentesis fluid was negative for SBP. She was started on diuretics and then was transferred out of the ICU. The patient's hemoglobin continued to be stable. We had discussion with the patient and the patient's sister who lives in [place] about the patient's drinking habits and worsening of her liver disease if she continues to drink. The patient states that she will not drink anymore. The patient did have a complication over the hospital course. She did have a fall. A CT head was done, which indicated a posterior right parietal scalp hematoma. The patient's hemoglobin and hematocrit continued to remain stable while she was in the hospital. PHYSICAL EXAMINATION: VITAL SIGNS: Temperature 98.2, heart rate 88, respiratory rate 15, O2 saturation 96% on room air, blood pressure 127/81. GENERAL: She is awake, alert, and oriented x2. She does not appear to be in any distress. The patient wants to go home. However, her neighbor states that she is unable to take care of her all the time or keep an eye on her all time. I will touch bases with patient's sister, who lives in [place]. At this time, patient has agreed to go home with hospice. She has been advised against alcohol use. MEDICATIONS: As of the followin. Levothyroxine 137 mcg p.o. daily; however, the patient states that she cannot afford this since it is 40 dollars. 2. Folic acid one p.o. daily. 3. Albuterol 2 puffs q.6 hours p.r.n. 4. Protonix 40 mg daily. 5. Spironolactone. I did decrease the dose to 25 given her low blood pressure. 6. Thiamine 100 mg daily. 7. Magnesium oxide 400 mg p.o. daily. Again, she will be discharged home with hospice. She is currently a DNAR. Job ID: [id number]
--- NOTE | 2018-07-15 12:09 | EKG ---
Test Reason : Blood Pressure : / mmHG Vent. Rate : 098 BPM Atrial Rate : 098 BPM P-R Int : 140 ms QRS Dur : 084 ms QT Int : 410 ms P-R-T Axes : 051 -24 -30 degrees QTc Int : 523 ms Normal sinus rhythm Low voltage QRS Nonspecific ST and T wave abnormality Abnormal ECG Confirmed by LALI PERDOMO, RUPA ([id number]), features editor GABE FAUSTIN ([id number]) on 07/15/2018 12:09:21 PM Referred By: Confirmed By:RUPA ESCALERA MD
== END 2018-07-13 15:44 | disposition hospice, home (50) | DRG 381 ==
LOC: ERS 22:43 → CCU 07-05 00:19 → IMCU/EMU 07-06 18:23 → T4-B 07-07 16:36
PROVIDERS: ADMIT Internal Medicine; ATTEND Internal Medicine
PROC: 0DJ08ZZ Inspection of Upper Intestinal Tract, Via Natural or Artificial Opening Endoscopic (ICD-10-PCS; principal; 2018-07-05)
PROC: 0W9G3ZZ Drainage of Peritoneal Cavity, Percutaneous Approach (ICD-10-PCS; 2018-07-06)
DX: K22.11 Ulcer of esophagus with bleeding (principal); K76.6 Portal hypertension; Z66 Do not resuscitate; I12.9 Hypertensive chronic kidney disease with stage 1 through stage 4 chronic kidney disease, or unspecified chronic kidney disease; E78.5 Hyperlipidemia, unspecified; E66.9 Obesity, unspecified; N18.3 Chronic kidney disease, stage 3 (moderate); E88.89 Other specified metabolic disorders; F10.229 Alcohol dependence with intoxication, unspecified; F32.9 Major depressive disorder, single episode, unspecified; E03.9 Hypothyroidism, unspecified; K21.9 Gastro-esophageal reflux disease without esophagitis; K70.11 Alcoholic hepatitis with ascites; E86.1 Hypovolemia; I73.9 Peripheral vascular disease, unspecified; K70.31 Alcoholic cirrhosis of liver with ascites; Z88.1 Allergy status to other antibiotic agents; Z88.2 Allergy status to sulfonamides; Z88.8 Allergy status to other drugs, medicaments and biological substances; Z68.30 Body mass index [BMI] 30.0-30.9, adult
CPT/HCPCS: 36415; 36430; 36556; 49083; 70450; 71045; 80048; 80053; 80307; 82140; 82550; 83605; 83690; 83735; 83880; 84100; 84439; 84443; 84484; 85014; 85018; 85025; 85060; 85610; 85730; 86850; 86900; 86901; 87040; 89051; 93005; 96365; 96366; 96368; 96375; 96376; 99292; C9113; J2060; J2185; J2270; J2354; J2405; J2704; J3411; J3475; J3480; J3490; J7042; J7050; P9016; P9048

== ENCOUNTER 2018-07-16 19:45 | Inpatient (IN) | payer SELFPAY ==
[2018-07-16 20:25] LABS: #Basophils 0.1 thou/uL (0.0-0.2); #Eosinphils 0.1 thou/uL (0.0-0.7); #Lymphocytes 1.5 thou/uL (1.20-3.40); #Neutrophils 11.3 thou/uL (1.40-6.50); %Basophils 0.8 % (0.0-1.0); %Eosinophils 0.4 % (0.0-10.0); %Lymphocytes 10.7 % (21.0-51.0); %Monocytes 7.3 % (0.0-10.0); %Neutrophils 80.8 % (42.0-75.0); Hemoglobin 9.4 g/dL (12.0-16.0); Mean Corpuscular HGB CONC 32.7 g/dL (32.0-36.0); Mean Corpuscular Hemoglobin 34.7 pg (27.0-31.0); Mean Platelet Volume 8.4 fL (7.4-10.4); Platelet Count 199 thou/uL (130-400); RBC Distribution Width 17.8 % (11.5-14.5)
[2018-07-16 20:44] LABS: INR-International Normal Ratio 1.8; PTT 46.9 SEC (22.9-36.1); Prothrombin Time 21.3 SEC (12.0-14.7)
[2018-07-16 20:47] LABS: ALT (SGPT) 21 U/L (8-55); AST (SGOT) 54 U/L (5-34); Albumin 2.4 g/dL (3.5-5.0); Alkaline Phosphatase 164 U/L (40-150); Anion Gap 11 mmol/L (10-20); BUN (Urea Nitrogen) 6 mg/dL (9.8-20.1); Bilirubin, Total 11.6 mg/dL (0.2-1.2); Calc. Creatinine Clearance 0 mL/min (70-130); Calcium 8.2 mg/dL (7.8-10.44); Carbon Dioxide 22 mmol/L (22-29); Chloride 109 mmol/L (98-107); Estimated GFR-MDRD 54; Globulin 4.3 g/dL (2.4-3.5); Glucose 102 mg/dL (70-105); Lipase 77 U/L (8-78); Potassium 3.4 mmol/L (3.5-5.1); Protein, Total 6.7 g/dL (6.0-8.3); Sodium 139 mmol/L (136-145)
[2018-07-16] MEDS ORDERED: Pantoprazole 40 MG VIAL ONE (21:28)
[2018-07-16 21:42] LABS: Phosphorus 3.4 mg/dL (2.3-4.7)
[2018-07-16 21:44] LABS: Bilirubin Large (Negative); Blood, Urine Negative (Negative); Clarity CLEAR (Clear); Glucose, Urine (Dipstick) Negative (Negative); Leukocyte Small (Negative); Nitrite Positive (Negative); Protein, Urine (Dipstick) Trace mg/dL (Neg-Trace); Specific Gravity, Urine 1.019 (1.002-1.036); pH, Urine 5.5 (5.0-9.0)
[2018-07-16 21:45] LABS: Magnesium 0.9 mg/dL (1.6-2.6)
[2018-07-16 21:46] LABS: Bacteria/HPF None Seen HPF (None Seen); Squamous Epithelial 0-3 HPF (0-3); WBC/HPF 0-3 HPF (0-3)
[2018-07-16 21:47] LABS: Hyaline Casts/LPF 0-3 HYALINE CAST LPF (0-3 Hyaline); Pathc Cast-AUWi Flag 9.79 (0-2.49); RBC/HPF 0-3 HPF (0-3)
[2018-07-16] MEDS ORDERED: Magnesium Sulfate 4 GM in Sodium Chloride 0.9% 250 ML 250 ML IVPB SCH (22:00)
[2018-07-16] MEDS ORDERED: Calcium Carbonate 500 MG ChewTAB PO PRN (22:36)
[2018-07-16] MEDS ORDERED: Ondansetron ODT 4 MG TAB PO PRN (22:36)
[2018-07-16] MEDS ORDERED: Ondansetron PF 4 MG/2 ML Vial IVP PRN (22:36)
[2018-07-16] MEDS ORDERED: Aztreonam 1 GM in Sodium Chloride 0.9% 100 ML IVPB SCH (22:45)
[2018-07-16] MEDS ORDERED: NS 0.9% w/ 20 MEQ KCL 1,000 ML/1,000 ML BAG IV SCH (23:00)
--- NOTE | 2018-07-16 23:34 | HP ---
PRIMARY CARE PHYSICIAN: Dr. Harkins. CHIEF COMPLAINT: Abdominal pain with diarrhea. HISTORY OF PRESENT ILLNESS: The patient is a 58-year-old female with alcoholic cirrhosis with recent hospitalization for upper GI bleed, presented to the emergency room with above complaints. The patient was discharged three days ago. She underwent a paracentesis that was negative for SBP. She also was hypotensive, requiring Levophed drip during that admission. She also underwent EGD that showed two lower esophageal erosions without any acute bleeding. Post discharge, the patient felt better for 1 or 2 days. However, since yesterday, the patient continues to have abdominal discomfort along with profuse diarrhea. The diarrhea is worse whenever she eats something. She also noticed some blood clots in the stool. She denies fresh blood mixed with the stool. The abdominal pain was generalized, mainly in the right upper quadrant without any aggravating or relieving factor. The abdominal pain is progressively getting worse. She denies any fever or chest discomfort. She occasionally had chills along with shortness of breath. She continues to drink alcohol. She required 3 units of PRBC last admission. In the emergency room, initial CBC showed WBC 14.0 with hemoglobin 9.4. She received one dose of Azactam with Protonix and IV fluids in the emergency room. PAST MEDICAL HISTORY: 1. Alcoholic cirrhosis. 2. Chronic anemia with recent GI bleeding, requiring blood transfusion. 3. Hypertension. 4. Hyperlipidemia. 5. Peripheral vascular disease. 6. Chronic kidney disease, stage 3. 7. Ongoing alcohol abuse. 8. Hypothyroidism. PAST SURGICAL HISTORY: 1. EGD. 2. Colonoscopy. 3. Hernia repair. 4. Tubal ligation. 5. Left ear surgery. 6. Tumor removal from her back. ALLERGIES: THE PATIENT IS ALLERGIC TO SEVERAL MEDICATIONS INCLUDING, 1. TYLENOL. 2. CEFTRIAXONE. 3. LEVOTHYROXINE. 4. MOXIFLOXACIN. 5. BACTRIM. SOCIAL HISTORY: The patient continues to drink on and off. She also abuses cannabis. She continues to smoke on and off. FAMILY HISTORY: Negative for premature coronary artery disease. Father had lung cancer. Hypertension runs in her family. CURRENT HOME MEDICATIONS: The patient is unable to recall any of her home medications. She was discharged two days ago on, 1. Albuterol inhaler. 2. Folic acid. 3. Levothyroxine. 4. Multivitamin. 5. Protonix. 6. Aldactone. 7. Thiamine. REVIEW OF SYSTEMS: All other review of systems was reviewed and was found negative. PHYSICAL EXAMINATION: VITAL SIGNS: as discussed above. GENERAL: A 58-year-old female, in no significant distress at rest. She continues to have abdominal pain, which is more or less chronic per patient report. The pain somewhat got worse over the last 2 days. HEENT: Head, atraumatic and normocephalic. Sclerae anicteric. Moist mucous membranes. No oral lesion. Jaundice noted. NECK: Supple. No JVD. No carotid bruit. LUNGS: Showed diminished air entry at bilateral bases. No wheezing, rales, or rhonchi. HEART: S1 and S2 present. Regular rate and rhythm. No rubs or gallops appreciated. ABDOMEN: Soft, distended, mild generalized tenderness. No rebound or guarding. No costovertebral angle tenderness. EXTREMITIES: 3+ edema in bilateral lower extremities. SKIN: Warm and dry. LYMPH NODES: No palpable lymph nodes in the neck. PERIPHERAL VASCULAR: Radial pulses palpable bilaterally. MUSCULOSKELETAL: No joint swelling or tenderness. LABORATORY FINDINGS: CBC showed WBC 14 with hemoglobin 9.4, hematocrit 28.7, and platelets of 199. PT 21.3, INR 1.8, and PTT 46.9. Chemistry showed sodium 139, potassium 3.4, chloride 109, bicarb 22, BUN of 6, creatinine 1.04, phosphorus 3.4, magnesium 0.9, total bilirubin 11.6 with AST 54, ALT 21, alkaline phosphatase 164, albumin 2.4. Urinalysis was negative for wbc or bacteria. IMPRESSION: 1. Abdominal pain with nausea and diarrhea. 2. Hematochezia. 3. Electrolyte abnormalities including hypokalemia and hypomagnesemia. 4. Alcoholic cirrhosis with ongoing alcohol abuse. 5. Tobacco dependence. 6. Cannabis abuse. 7. Coagulopathy with hypoalbuminemia secondary to cirrhosis. 8. Chronic anemia requiring 3 units of PRBC recently for gastrointestinal bleeding. 9. Hypothyroidism. TSH was 13.6. PLAN: The patient will be monitored as observation. Electrolytes will be replaced. She received one dose of Azactam in the emergency room. We will consult Gastroenterology. She recently had ultrasound-guided paracentesis, which was negative for SBP. Palliative Care Team will be consulted. Blood cultures have been sent. Lifetime modification including alcohol, tobacco, and cannabis cessation was emphasized. We will recheck labs in a.m. Continue thiamine, folic acid, and multivitamin. We will get stool workup. Plan of care was discussed with the patient in detail. She stated understanding. Job ID: [id number] MTDDale
[2018-07-17] MEDS ORDERED: traMADol HCl 50 MG TAB PO PRN (00:22)
[2018-07-17 01:54] VITALS: BMI 32.0
[2018-07-17] MEDS ORDERED: Spironolactone 25 MG TAB PO SCH (08:00)
[2018-07-17] MEDS ORDERED: Calcium Carbonate 500 MG ChewTAB PO PRN (08:01)
[2018-07-17] MEDS ORDERED: Ondansetron ODT 4 MG TAB PO PRN (08:01)
[2018-07-17] MEDS ORDERED: Ondansetron PF 4 MG/2 ML Vial IVP PRN (08:02)
[2018-07-17 08:08] LABS: #Basophils 0.1 thou/uL (0.0-0.2); #Eosinphils 0.2 thou/uL (0.0-0.7); #Lymphocytes 1.5 thou/uL (1.20-3.40); #Neutrophils 9.5 thou/uL (1.40-6.50); %Basophils 0.8 % (0.0-1.0); %Eosinophils 1.4 % (0.0-10.0); %Lymphocytes 12.6 % (21.0-51.0); %Monocytes 8.1 % (0.0-10.0); %Neutrophils 77.2 % (42.0-75.0); Hemoglobin 8.1 g/dL (12.0-16.0); Mean Corpuscular HGB CONC 32.5 g/dL (32.0-36.0); Mean Platelet Volume 8.3 fL (7.4-10.4); Platelet Count 182 thou/uL (130-400); RBC Distribution Width 17.6 % (11.5-14.5); Red Blood Cell (RBC) Count 2.37 mill/uL (4.20-5.40); White Blood Cell (WBC) Count 12.3 thou/uL (4.8-10.8)
[2018-07-17] MEDS ORDERED: NS 0.9% w/ 20 MEQ KCL 1,000 ML/1,000 ML BAG IV SCH (08:15)
[2018-07-17 08:27] LABS: ALT (SGPT) 21 U/L (8-55); AST (SGOT) 45 U/L (5-34); Alkaline Phosphatase 134 U/L (40-150); Anion Gap 10 mmol/L (10-20); BUN (Urea Nitrogen) 6 mg/dL (9.8-20.1); Bilirubin, Total 10.3 mg/dL (0.2-1.2); Calc. Creatinine Clearance 91 mL/min (70-130); Calcium 7.6 mg/dL (7.8-10.44); Carbon Dioxide 20 mmol/L (22-29); Chloride 111 mmol/L (98-107); Estimated GFR-MDRD 67; Globulin 3.8 g/dL (2.4-3.5); Glucose 92 mg/dL (70-105); Magnesium 1.7 mg/dL (1.6-2.6); Phosphorus 3.6 mg/dL (2.3-4.7); Potassium 3.1 mmol/L (3.5-5.1); Protein, Total 5.8 g/dL (6.0-8.3); Sodium 138 mmol/L (136-145)
[2018-07-17] MEDS ORDERED: Pantoprazole 40 MG VIAL IVP SCH (09:00)
[2018-07-17] MEDS ORDERED: Thiamine 100 MG TAB PO SCH (09:00)
[2018-07-17] MEDS ORDERED: Multivit, Therapeutic 1 TAB PO SCH ×2 (09:00→11:15)
[2018-07-17] MEDS: Spironolactone 25 MG TAB PO SCH (09:23)
[2018-07-17] MEDS: Pantoprazole 40 MG VIAL IVP SCH ×2 (09:23→19:25)
[2018-07-17] MEDS: Thiamine 100 MG TAB PO SCH (09:23)
[2018-07-17] MEDS: traMADol HCl 50 MG TAB PO PRN ×2 (12:42→20:31)
--- NOTE | 2018-07-17 14:06 | CON ---
DATE OF CONSULTATION: 07/17/2018 REASON FOR CONSULTATION: Lower GI bleeding. HISTORY OF PRESENT ILLNESS: Monse Green is a 58-year-old woman, well known to me for alcoholic liver disease and ongoing alcohol abuse. She was recently hospitalized here for over a week after presenting with upper GI bleeding and acute blood loss anemia. She had an EGD at that time showing a few small erosions in the distal esophagus, but no varices. No stigmata of bleeding. She remained stable throughout that hospitalization and was eventually discharged home with hospice 4 days ago. She had a therapeutic paracentesis during that admission, which was negative for SBP. The patient tells me that after she got home she did not have access to any of her medications. She also had a flask of vodka, which she drank. Shortly thereafter, she started having recurrent abdominal pain in the upper abdomen, particularly the left upper quadrant and epigastrium. She also had several loose bowel movements and reported that she had bright red blood and a few clots passed near the end of a couple of bowel movements. She has a known history of internal hemorrhoids with last colonoscopy in November 2016. Upon presentation, she did have a leukocytosis to 14, and hemoglobin was 9.4. This morning, hemoglobin declined down to 8.1, but there has been no further overt bleeding. She has remained hemodynamically stable. She is really still not confident she is going to be able to stop drinking. She has no other complaints. PAST MEDICAL HISTORY: Alcoholic cirrhosis, chronic anemia, hypertension, hyperlipidemia, peripheral vascular disease, chronic kidney disease stage 3, ongoing alcohol abuse, hypothyroidism, hernia repair, tubal ligation, and left ear surgery. ALLERGIES: TYLENOL, CEFTRIAXONE, LEVOTHYROXINE, MOXIFLOXACIN, AND BACTRIM. HOME MEDICATIONS: The patient tells me that she was not taking any medications at home. Her recent discharge medication list included; 1. Albuterol inhaler. 2. Folic acid. 3. Levothyroxine. 4. Multivitamin. 5. Protonix. 6. Aldactone. 7. Thiamine. REVIEW OF SYSTEMS: Full review of systems including constitutional, head, eyes, ears, nose, throat, GI, , cardiovascular, respiratory, musculoskeletal, and neurologic systems are negative except as noted in the HPI. FAMILY HISTORY: Father had lung cancer. SOCIAL HISTORY: The patient continues to abuse alcohol. She continues to smoke on and off. She also abuses cannabis. PHYSICAL EXAMINATION: VITAL SIGNS: Temperature 97.8, pulse 81, blood pressure 111/76, and 96% oxygen saturation on room air. GENERAL: A 58-year-old woman, sitting up in bed comfortably, in no acute distress. SKIN: She is jaundiced. No rashes were palpable. HEENT: Eyes, she has scleral icterus. Extraocular movements intact. ENT, mucous membranes moist. No oral lesions. LYMPH: No submandibular or supraclavicular lymphadenopathy. THYROID: Nontender to palpation. HEART: Regular rate and rhythm. LUNGS: Clear to auscultation bilaterally. ABDOMEN: Mild distention. Dull to percussion of the flanks, not tense. Bowel sounds are present. Soft. Some tenderness to palpation in the upper abdomen, but no guarding or rebound tenderness. No masses or organomegaly appreciated. EXTREMITIES: Trace pretibial edema bilaterally. NEURO: Cranial nerves 2 through 12 intact bilaterally. VESSELS: Radial pulses 2+ bilaterally. LABORATORY STUDIES: Hemoglobin 8.1, WBC 12.3, and platelets 182. INR 1.8. Sodium 138, potassium 3.1, BUN only 6, and creatinine 0.87. Total bilirubin 10.3, which is stable from prior admission. Alkaline phosphatase 134, AST 45, ALT 21, and albumin 2.0. Urinalysis is 0 to 3 wbc's, though positive for nitrites and leukocyte esterase. ASSESSMENT AND PLAN: 1. Rectal bleeding, almost certainly hemorrhoidal bleeding. Reviewed her colonoscopy from just a year and half ago. She has known internal hemorrhoids. The pattern of bleeding is consistent with hemorrhoidal bleeding. She does have a coagulopathy, which is probably making this worse than otherwise would be. At any rate, there is no indication for repeat colonoscopy at this time. Given that she does have some ongoing diarrhea complaints with a recent admission, I think it would be reasonable to check a stool studies to rule out clostridium difficile. 2. Alcoholic cirrhosis. 3. Ongoing alcohol abuse. In the longer term, this is quite concerning. The patient had actually been discharged recently with a plan for hospice, with the understanding that she really was not willing to stop drinking. I think that if she does continue to consume alcohol, then she is certainly a hospice candidate. If she were able to stop drinking, it is unclear to what degree her liver disease might stabilize. I again discussed with her the importance of completely abstaining from alcohol. No other recommendations from a GI perspective at this time. Please call back at anytime with questions or concerns. Job ID: [id number]
--- NOTE | 2018-07-17 20:38 | PDOC.PN ---
- Subjective Encounter Start Date: 07/17/18 Encounter Start Time: 10:00 Feels ok overall. She had gone home on hospice, but came back. Says she is not sure what she wants to do now. Contemplating going home with Hospice again, assisted or moving to her sister's home in [place], [place]. Reports she had no blood in the stool, but only dripping red blood after she wiped and stood up. Primarily concerned that her jaundice will not resolve. - Objective Resuscitation Status - Order Detail: 07/17/18 00:22 Resuscitation Status Routine Resuscitation Status: DNAR: NO Resuscitation Discussed with: confirmed with patient Vital Signs & Weight: Vital Signs (12 hours) Temp Pulse Resp BP Pulse Ox 07/17/18 19:23 97.6 F 79 18 103/65 98 07/17/18 16:00 97.9 F 78 18 91/53 L 95 07/17/18 11:27 81 20 111/76 96 Weight Weight 177 lb 14.4 oz I&O: 07/16/18 07/17/18 07/18/18 06:59 06:59 06:59 Intake Total 912 1220 Balance 912 1220 Result Diagrams: 07/17/18 07:38 07/17/18 07:38 Phys Exam - Physical Examination Constitutional: NAD Respiratory: no wheezing, no rales, no rhonchi, clear to auscultation bilateral Cardiovascular: RRR, no significant murmur, no rub Gastrointestinal: soft, non-tender Ascites. Not tense. 1+ edema. Psychiatric: normal affect, A&O x 3 Dx/Plan (1) Lower GI bleed Code(s): K92.2 - GASTROINTESTINAL HEMORRHAGE, UNSPECIFIED Status: Acute (2) Diarrhea Code(s): R19.7 - DIARRHEA, UNSPECIFIED Status: Acute (3) CKD (chronic kidney disease), stage III Code(s): N18.3 - CHRONIC KIDNEY DISEASE, STAGE 3 (MODERATE) Status: Acute (4) HTN (hypertension) Code(s): I10 - ESSENTIAL (PRIMARY) HYPERTENSION Status: Acute (5) Hypothyroidism Code(s): E03.9 - HYPOTHYROIDISM, UNSPECIFIED Status: Acute (6) Anemia Code(s): D64.9 - ANEMIA, UNSPECIFIED Status: Acute - Plan * LGIB likely related to bleeding hemorrhoids and coagulopathy. * Discussed with GI. No scope now. * C diff assay. * She will need to make a decision. She understands the need to stop the EtOH. I explained that she will not have significant liver recovery, but she will get worse much faster if she continues to drink. * Recheck hgb in am. * If stable, consider discharge planning.
[2018-07-17] MEDS ORDERED: Morphine 2 MG/ML SYRINGE SLOW IVP SCH (21:30)
[2018-07-18] MEDS: traMADol HCl 50 MG TAB PO PRN ×3 (05:19→22:45)
[2018-07-18 06:39] LABS: #Basophils 0.1 thou/uL (0.0-0.2); #Eosinphils 0.2 thou/uL (0.0-0.7); #Lymphocytes 1.8 thou/uL (1.20-3.40); #Neutrophils 10.2 thou/uL (1.40-6.50); %Basophils 0.9 % (0.0-1.0); %Eosinophils 1.3 % (0.0-10.0); %Lymphocytes 13.2 % (21.0-51.0); %Monocytes 7.7 % (0.0-10.0); %Neutrophils 76.9 % (42.0-75.0); Hemoglobin 8.4 g/dL (12.0-16.0); Mean Corpuscular Hemoglobin 34.1 pg (27.0-31.0); Mean Platelet Volume 8.5 fL (7.4-10.4); Platelet Count 186 thou/uL (130-400); RBC Distribution Width 17.3 % (11.5-14.5); Red Blood Cell (RBC) Count 2.46 mill/uL (4.20-5.40); White Blood Cell (WBC) Count 13.2 thou/uL (4.8-10.8)
[2018-07-18 06:52] LABS: ALT (SGPT) 19 U/L (8-55); AST (SGOT) 45 U/L (5-34); Alkaline Phosphatase 141 U/L (40-150); Anion Gap 10 mmol/L (10-20); BUN (Urea Nitrogen) 6 mg/dL (9.8-20.1); Bilirubin, Total 9.9 mg/dL (0.2-1.2); Calc. Creatinine Clearance 82 mL/min (70-130); Calcium 7.9 mg/dL (7.8-10.44); Carbon Dioxide 20 mmol/L (22-29); Chloride 109 mmol/L (98-107); Estimated GFR-MDRD 60; Globulin 3.9 g/dL (2.4-3.5); Glucose 77 mg/dL (70-105); Potassium 3.2 mmol/L (3.5-5.1); Protein, Total 5.9 g/dL (6.0-8.3); Sodium 136 mmol/L (136-145)
[2018-07-18] MEDS: Multivit, Therapeutic 1 TAB PO SCH (08:12)
[2018-07-18] MEDS: Spironolactone 25 MG TAB PO SCH (08:12)
[2018-07-18] MEDS: Pantoprazole 40 MG VIAL IVP SCH ×2 (08:12→19:51)
[2018-07-18] MEDS: Thiamine 100 MG TAB PO SCH (08:12)
--- NOTE | 2018-07-18 17:24 | PDOC.PN ---
- Subjective Encounter Start Date: 07/18/18 Encounter Start Time: 17:15 Subjective: f/u for suspected LGIB in context of end-stage cirrhosis and coagulopathy -: with ETOH abuse. - Objective Resuscitation Status - Order Detail: 07/17/18 00:22 Resuscitation Status Routine Resuscitation Status: DNAR: NO Resuscitation Discussed with: confirmed with patient MAR Reviewed: Yes Vital Signs & Weight: Vital Signs (12 hours) Temp Pulse Resp BP Pulse Ox 07/18/18 16:00 97.7 F 88 20 107/66 96 07/18/18 11:00 91 18 110/61 97 Weight Weight 177 lb 14.4 oz I&O: 07/17/18 07/18/18 07/19/18 06:59 06:59 06:59 Intake Total 912 1930 Balance 912 1930 Result Diagrams: 07/18/18 06:06 07/18/18 06:06 Additional Labs: Microbiology 07/18/18 04:15 Stool C. difficile GDH Antigen & Toxins - Final 07/18/18 04:15 Stool Clostridioides difficile Toxins A&B (PCR) - Final 07/17/18 01:35 Stool Stool Occult Blood ([facility]) - Final 07/16/18 21:38 Venous blood - Right Arm Blood Culture - Preliminary NO GROWTH AT 48 HOURS 07/16/18 21:38 Venous blood - Left Hand Blood Culture - Preliminary NO GROWTH AT 48 HOURS Laboratory Tests 07/16/18 07/16/18 07/17/18 20:16 20:31 07:38 WBC 14.0 H 12.3 H Hgb 9.4 L 8.1 L Plt Count 199 182 PT 21.3 H INR 1.8 Phys Exam - Physical Examination alert, responsive, jaundiced + scleral icterus HEENT: PERRLA, sclera anicteric, oral pharynx no lesions Neck: no nodes, no JVD, supple, full ROM Respiratory: no wheezing, no rales, no rhonchi, clear to auscultation bilateral S1, S2 Cardiovascular: RRR, no significant murmur, no rub, gallop distended, + ascites Gastrointestinal: non-tender, positive bowel sounds Musculoskeletal: no edema, pulses present Neurological: normal sensation, moves all 4 limbs Psychiatric: A&O x 3 Skin: normal turgor, cap refill <2 seconds Dx/Plan (1) Clostridium difficile diarrhea Code(s): A04.72 - ENTEROCOLITIS D/T CLOSTRIDIUM DIFFICILE, NOT SPCF RECUR Status: Acute Comment: Start Flagyl 500mg po q6h (2) Lower GI bleed Code(s): K92.2 - GASTROINTESTINAL HEMORRHAGE, UNSPECIFIED Status: Acute Comment: Likely secondary to #1, serial H/H monitoring, avoid anticoagulation and NSAIDs (3) Anemia Code(s): D64.9 - ANEMIA, UNSPECIFIED Status: Chronic Comment: Macrocytic anemia in conjunction with end-stage liver disease (4) Cirrhosis Code(s): K74.60 - UNSPECIFIED CIRRHOSIS OF LIVER Status: Chronic Qualifiers: Hepatic cirrhosis type: alcoholic cirrhosis Comment: End-stage process, Hospice previously at home prior to admission (5) Hyperbilirubinemia Code(s): E80.6 - OTHER DISORDERS OF BILIRUBIN METABOLISM Status: Chronic Comment: Secondary to ESLD - Plan continue antibiotics, social worker health services, out of bed/ambulate, DVT proph w/SCDs Continue MVI, Thiamine, Folate -: Continue Aldactone -: Start Flagyl 500mg po q6h -: Palliative care consult -: AM lab: CMP * .
[2018-07-18] MEDS ORDERED: PROVENTIL INHALER 6.7 G (200 INHALATIONS) INH PRN (17:27)
[2018-07-18] MEDS ORDERED: Potassium Chloride 20 MEQ TAB PO SCH (17:45)
[2018-07-18] MEDS: metroNIDAZOLE 500 MG TAB PO SCH (19:49)
[2018-07-19] MEDS: Levothyroxine Sodium 25 MCG TAB PO SCH (05:34)
[2018-07-19] MEDS: Levothyroxine Sodium 112 MCG TAB PO SCH (05:34)
[2018-07-19] MEDS: traMADol HCl 50 MG TAB PO PRN (05:35)
[2018-07-19] MEDS: Thiamine 100 MG TAB PO SCH ×2 (07:03→08:57)
[2018-07-19 07:12] LABS: ALT (SGPT) 20 U/L (8-55); AST (SGOT) 55 U/L (5-34); Albumin 2.3 g/dL (3.5-5.0); Alkaline Phosphatase 165 U/L (40-150); Anion Gap 8 mmol/L (10-20); BUN (Urea Nitrogen) 6 mg/dL (9.8-20.1); Bilirubin, Total 11.9 mg/dL (0.2-1.2); Calc. Creatinine Clearance 78 mL/min (70-130); Calcium 8.4 mg/dL (7.8-10.44); Carbon Dioxide 23 mmol/L (22-29); Chloride 107 mmol/L (98-107); Estimated GFR-MDRD 56; Globulin 4.4 g/dL (2.4-3.5); Glucose 73 mg/dL (70-105); Potassium 3.9 mmol/L (3.5-5.1); Protein, Total 6.7 g/dL (6.0-8.3); Sodium 134 mmol/L (136-145)
[2018-07-19] MEDS: Potassium Chloride 20 MEQ TAB PO SCH ×2 (08:55→16:56)
[2018-07-19] MEDS: metroNIDAZOLE 500 MG TAB PO SCH ×4 (08:55→20:33)
[2018-07-19] MEDS: Folic Acid 1 MG TAB PO SCH (08:56)
[2018-07-19] MEDS: Spironolactone 25 MG TAB PO SCH (08:56)
[2018-07-19] MEDS: Magnesium Oxide 400 MG TAB PO SCH (08:57)
[2018-07-19] MEDS: Multivit, Therapeutic 1 TAB PO SCH (08:57)
[2018-07-19] MEDS ORDERED: Non-Formulary Item 1 EACH (Levothyroxine Sodium [Synthroid] 137 MCG) PO SCH (09:00)
[2018-07-19] MEDS ORDERED: traMADol HCl 50 MG TAB PO SCH (11:00)
--- NOTE | 2018-07-19 15:08 | PDOC.PN ---
- Subjective Encounter Start Date: 07/19/18 Encounter Start Time: 15:00 Subjective: f/u for ETOH cirrhosis, C. diff antigen diarrhea on Flagyl. States feeling -: ok and minimal diarrhea. Feels fatigued. Worried about living situation -: after discharge. - Objective Resuscitation Status - Order Detail: 07/17/18 00:22 Resuscitation Status Routine Resuscitation Status: DNAR: NO Resuscitation Discussed with: confirmed with patient MAR Reviewed: Yes Vital Signs & Weight: Vital Signs (12 hours) Temp Pulse Resp BP Pulse Ox 07/19/18 12:08 97.1 F L 88 18 117/75 96 07/19/18 04:58 98.1 F 84 16 92/56 L 97 Weight Weight 177 lb 14.4 oz I&O: 07/18/18 07/19/18 07/20/18 06:59 06:59 06:59 Intake Total 1930 915 Balance 1930 915 Result Diagrams: 07/18/18 06:06 07/19/18 05:35 Additional Labs: Microbiology 07/18/18 04:15 Stool C. difficile GDH Antigen & Toxins - Final 07/18/18 04:15 Stool Clostridioides difficile Toxins A&B (PCR) - Final 07/17/18 01:35 Stool Stool Occult Blood ([facility]) - Final 07/16/18 21:38 Venous blood - Right Arm Blood Culture - Preliminary NO GROWTH AT 48 HOURS 07/16/18 21:38 Venous blood - Left Hand Blood Culture - Preliminary NO GROWTH AT 48 HOURS Laboratory Tests 07/16/18 07/16/18 07/17/18 20:16 20:31 07:38 WBC 14.0 H 12.3 H Hgb 9.4 L 8.1 L Plt Count 199 182 PT 21.3 H INR 1.8 Phys Exam - Physical Examination Constitutional: NAD alert, responsive, jaundiced + scleral icterus HEENT: PERRLA, oral pharynx no lesions Neck: no nodes, no JVD, supple, full ROM Respiratory: no wheezing, no rales, no rhonchi, clear to auscultation bilateral S1, S2 Cardiovascular: RRR, no significant murmur, no rub, gallop distended, + ascites Gastrointestinal: positive bowel sounds Musculoskeletal: no edema, pulses present Neurological: normal sensation, moves all 4 limbs Psychiatric: A&O x 3 Deviation from normal: + jaundice Skin: normal turgor, cap refill <2 seconds Dx/Plan (1) Clostridium difficile diarrhea Code(s): A04.72 - ENTEROCOLITIS D/T CLOSTRIDIUM DIFFICILE, NOT SPCF RECUR Status: Acute Comment: Start Flagyl 500mg po q6h (2) Lower GI bleed Code(s): K92.2 - GASTROINTESTINAL HEMORRHAGE, UNSPECIFIED Status: Acute Comment: Likely secondary to #1, serial H/H monitoring, avoid anticoagulation and NSAIDs (3) Anemia Code(s): D64.9 - ANEMIA, UNSPECIFIED Status: Chronic Comment: Macrocytic anemia in conjunction with end-stage liver disease, H/H stable (4) Cirrhosis Code(s): K74.60 - UNSPECIFIED CIRRHOSIS OF LIVER Status: Chronic Qualifiers: Hepatic cirrhosis type: alcoholic cirrhosis Comment: End-stage process, Hospice previously at home prior to admission (5) Hyperbilirubinemia Code(s): E80.6 - OTHER DISORDERS OF BILIRUBIN METABOLISM Status: Chronic Comment: Secondary to ESLD - Plan continue antibiotics, social psychologist, out of bed/ambulate Stable overall -: Continue Metronidazole 500mg po q6h -: Add Florastor 250mg daily -: OOB/ambulate -: AM lab: H/H * Likely home in am 07/20/18
[2018-07-19] MEDS ORDERED: Saccharomyces boulardii 250 MG CAP PO SCH (16:00)
[2018-07-20] MEDS: Levothyroxine Sodium 112 MCG TAB PO SCH (05:11)
[2018-07-20] MEDS: Levothyroxine Sodium 25 MCG TAB PO SCH (05:11)
[2018-07-20] MEDS ORDERED: Morphine 4 MG/ML VIAL SLOW IVP SCH (05:15)
[2018-07-20 07:32] LABS: Hemoglobin 8.9 g/dL (12.0-16.0); Platelet Count 199 thou/uL (130-400)
[2018-07-20] MEDS: Potassium Chloride 20 MEQ TAB PO SCH (08:36)
[2018-07-20] MEDS: Folic Acid 1 MG TAB PO SCH (08:37)
[2018-07-20] MEDS: Thiamine 100 MG TAB PO SCH (08:37)
[2018-07-20] MEDS: Multivit, Therapeutic 1 TAB PO SCH (08:37)
[2018-07-20] MEDS: metroNIDAZOLE 500 MG TAB PO SCH ×2 (08:37→12:59)
[2018-07-20] MEDS: Spironolactone 25 MG TAB PO SCH (08:37)
[2018-07-20] MEDS: Magnesium Oxide 400 MG TAB PO SCH (08:38)
[2018-07-20] MEDS ORDERED: Saccharomyces boulardii 250 MG CAP PO SCH (09:00)
--- NOTE | 2018-07-20 13:05 | DIS ---
DATE OF ADMISSION: 07/16/2018 DATE OF DISCHARGE: 07/20/2018 DISCHARGE DISPOSITION: Home. FOLLOWUP: Follow up with primary care physician, Dr. Harkins in 1 week. The patient was seen and examined on the day of discharge. Denies any new complaints. No chest pain, shortness of breath, or palpitations reported. DISCHARGE MEDICATIONS: 1. Flagyl 500 mg three times daily for 1 week. 2. Multivitamin one tablet daily. 3. All other home medications were left unchanged. BRIEF HOSPITAL COURSE: The patient is a 58-year-old female with alcoholic cirrhosis with recent hospitalization for GI bleeding, presented to the hospital with abdominal pain, diarrhea along with hematochezia. Please refer to the history and physical for further details. The patient was admitted to the hospital with a diagnosis of suspected lower gastrointestinal bleeding. Her H and H on admission was 9.4, at discharge was 8.9. She was evaluated by Gastroenterology, Dr. Fay. According to Dr. Fay, the patient probably has hemorrhoidal bleeding. She had a colonoscopy 1-1/2 years ago. There is no indication of repeating colonoscopy at this time. Stool workup was positive for C diff. Toxin was, however, negative. She was started on Flagyl by the hospitalist before mi. She will continue Flagyl for another week. She was advised to follow up with Gastroenterology as outpatient. FINAL DIAGNOSES: 1. Clostridium difficile diarrhea causing abdominal pain, nausea, and diarrhea. 2. Hematochezia, probably secondary to hemorrhoids. 3. Multiple electrolyte abnormalities including hypokalemia, hypomagnesemia, and hyponatremia corrected. 4. Alcoholic cirrhosis. The patient was extensively counseled to quit alcohol. 5. Tobacco dependence. 6. Cannabis abuse. 7. Coagulopathy with hypoalbuminemia secondary to cirrhosis. 8. Recent gastrointestinal bleeding requiring 3 units of PRBC. 9. Hypothyroidism. 10. Medication noncompliance. 11. Obesity with a BMI of 32. 12. Abnormal LFTs. 13. Moderate protein calorie malnutrition. PLAN: Plan of care was discussed with the patient in detail. She stated understanding. Total time coordinating the discharge including counseling was 33 minutes. Job ID: [id number]
[2018-07-20 13:16] VITALS: BP 102/63; TEMP 97.8
== END 2018-07-20 13:28 | disposition home or self-care (01) | DRG 372 ==
LOC: ERS 19:45 → OBSVTOIN 21:28 → T4-B 21:28 → ERS 23:23 → T4-B 23:23
PROVIDERS: ADMIT Internal Medicine; ATTEND Internal Medicine
DX: A04.72 Enterocolitis due to Clostridium difficile, not specified as recurrent (principal); D68.4 Acquired coagulation factor deficiency; E87.1 Hypo-osmolality and hyponatremia; E44.0 Moderate protein-calorie malnutrition; K70.30 Alcoholic cirrhosis of liver without ascites; D64.9 Anemia, unspecified; E78.5 Hyperlipidemia, unspecified; I73.9 Peripheral vascular disease, unspecified; E03.9 Hypothyroidism, unspecified; N18.3 Chronic kidney disease, stage 3 (moderate); I12.9 Hypertensive chronic kidney disease with stage 1 through stage 4 chronic kidney disease, or unspecified chronic kidney disease; F10.10 Alcohol abuse, uncomplicated; E87.6 Hypokalemia; E83.42 Hypomagnesemia; F12.10 Cannabis abuse, uncomplicated; E88.09 Other disorders of plasma-protein metabolism, not elsewhere classified; K64.9 Unspecified hemorrhoids; E66.9 Obesity, unspecified; J45.909 Unspecified asthma, uncomplicated; F17.210 Nicotine dependence, cigarettes, uncomplicated; Z68.32 Body mass index [BMI] 32.0-32.9, adult; Z88.2 Allergy status to sulfonamides; Z98.51 Tubal ligation status; Z88.1 Allergy status to other antibiotic agents; Z88.8 Allergy status to other drugs, medicaments and biological substances; Z79.51 Long term (current) use of inhaled steroids; Z79.899 Other long term (current) drug therapy
CPT/HCPCS: 36415; 51701; 80053; 81003; 81015; 82274; 83690; 83735; 84100; 85014; 85018; 85025; 85049; 85610; 85730; 86850; 86900; 86901; 87040; 87324; 87449; 87493; 96365; 96368; 96375; A4353; C9113; J2270; J3475; J3480; J3490; J7050

== ENCOUNTER 2018-07-22 10:08 | Emergency (ER) | payer SELFPAY ==
[2018-07-22 10:42] LABS: #Basophils 0.1 thou/uL (0.0-0.2); #Eosinphils 0.1 thou/uL (0.0-0.7); #Lymphocytes 1.3 thou/uL (1.20-3.40); #Neutrophils 10.5 thou/uL (1.40-6.50); %Basophils 0.8 % (0.0-1.0); %Eosinophils 0.9 % (0.0-10.0); %Lymphocytes 9.6 % (21.0-51.0); %Neutrophils 80.7 % (42.0-75.0); Hemoglobin 9.2 g/dL (12.0-16.0); Mean Corpuscular HGB CONC 32.1 g/dL (32.0-36.0); Mean Corpuscular Hemoglobin 33.7 pg (27.0-31.0); Platelet Count 203 thou/uL (130-400); RBC Distribution Width 16.9 % (11.5-14.5); Red Blood Cell (RBC) Count 2.73 mill/uL (4.20-5.40)
[2018-07-22 11:03] LABS: CK (CPK) 22 U/L (29-168); Lipase 37 U/L (8-78)
[2018-07-22 11:04] LABS: ALT (SGPT) 19 U/L (8-55); AST (SGOT) 50 U/L (5-34); Albumin 2.2 g/dL (3.5-5.0); Alkaline Phosphatase 156 U/L (40-150); Anion Gap 14 mmol/L (10-20); BUN (Urea Nitrogen) 6 mg/dL (9.8-20.1); Bilirubin, Total 11.7 mg/dL (0.2-1.2); Calc. Creatinine Clearance 0 mL/min (70-130); Calcium 8.6 mg/dL (7.8-10.44); Carbon Dioxide 18 mmol/L (22-29); Chloride 108 mmol/L (98-107); Estimated GFR-MDRD 60; Globulin 4.4 g/dL (2.4-3.5); Glucose 88 mg/dL (70-105); Protein, Total 6.6 g/dL (6.0-8.3); Sodium 136 mmol/L (136-145)
== END 2018-07-22 15:14 | disposition home or self-care (01) ==
LOC: ERS 10:08
DX: K74.60 Unspecified cirrhosis of liver (principal); E80.7 Disorder of bilirubin metabolism, unspecified; E03.9 Hypothyroidism, unspecified; J45.909 Unspecified asthma, uncomplicated; F32.9 Major depressive disorder, single episode, unspecified; F17.210 Nicotine dependence, cigarettes, uncomplicated; Z79.899 Other long term (current) drug therapy; Z79.51 Long term (current) use of inhaled steroids
CPT/HCPCS: 36415; 80053; 82140; 82550; 83690; 85025; 93005

== ENCOUNTER 2018-07-24 10:55 | Observation (INO) | payer SELFPAY ==
[2018-07-24 11:45] LABS: #Basophils 0.1 thou/uL (0.0-0.2); #Eosinphils 0.1 thou/uL (0.0-0.7); #Lymphocytes 1.5 thou/uL (1.20-3.40); #Monocytes 0.8 thou/uL (0.11-0.59); #Neutrophils 9.4 thou/uL (1.40-6.50); %Basophils 0.5 % (0.0-1.0); %Eosinophils 0.7 % (0.0-10.0); %Lymphocytes 12.6 % (21.0-51.0); %Monocytes 6.7 % (0.0-10.0); %Neutrophils 79.4 % (42.0-75.0); Hemoglobin 9.9 g/dL (12.0-16.0); Mean Corpuscular HGB CONC 31.8 g/dL (32.0-36.0); Mean Corpuscular Hemoglobin 32.9 pg (27.0-31.0); Mean Platelet Volume 8.5 fL (7.4-10.4); Platelet Count 220 thou/uL (130-400); RBC Distribution Width 17.2 % (11.5-14.5); White Blood Cell (WBC) Count 11.8 thou/uL (4.8-10.8)
[2018-07-24 11:58] LABS: INR-International Normal Ratio 1.7; Prothrombin Time 20.2 SEC (12.0-14.7)
[2018-07-24 12:22] LABS: ALT (SGPT) 24 U/L (8-55); AST (SGOT) 62 U/L (5-34); Albumin 2.6 g/dL (3.5-5.0); Alkaline Phosphatase 169 U/L (40-150); Anion Gap 17 mmol/L (10-20); BUN (Urea Nitrogen) 7 mg/dL (9.8-20.1); Bilirubin, Total 12.5 mg/dL (0.2-1.2); CK (CPK) 32 U/L (29-168); Calc. Creatinine Clearance 0 mL/min (70-130); Calcium 8.6 mg/dL (7.8-10.44); Carbon Dioxide 18 mmol/L (22-29); Chloride 105 mmol/L (98-107); Estimated GFR-MDRD 53; Globulin 5.2 g/dL (2.4-3.5); Glucose 96 mg/dL (70-105); Lipase 57 U/L (8-78); Potassium 3.6 mmol/L (3.5-5.1); Protein, Total 7.8 g/dL (6.0-8.3); Sodium 136 mmol/L (136-145)
[2018-07-24] MEDS ORDERED: Morphine 4 MG/ML VIAL ONE (12:39)
--- NOTE | 2018-07-24 12:53 | RAD ---
Chest one view HISTORY: Chest pain. Hematuria. COMPARISON: 07/04/2018. FINDINGS: Cardiac silhouette is magnified by projection. Shallow inspiration accentuates pulmonary ma rkings. Linear opacity running obliquely across the right base is evidence of atelectasis. Mediastinum is midline. No lobar consolidation or evidence of pneumothorax. IMPRESSION: Mild linear atelectasis right lung base. Cause is not evident.
[2018-07-24 13:22] LABS: Bilirubin Large (Negative); Blood, Urine Negative (Negative); Clarity CLOUDY (Clear); Glucose, Urine (Dipstick) Negative (Negative); Leukocyte Small (Negative); Nitrite Positive (Negative); Protein, Urine (Dipstick) Trace mg/dL (Neg-Trace); Specific Gravity, Urine 1.017 (1.002-1.036); pH, Urine 5.5 (5.0-9.0)
[2018-07-24 13:26] LABS: Bacteria/HPF 2+ HPF (None Seen); RBC/HPF None Seen HPF (0-3); Squamous Epithelial 0-3 HPF (0-3); WBC/HPF 0-3 HPF (0-3)
[2018-07-24 13:29] LABS: Pathc Cast-AUWi Flag 4.08 (0-2.49)
--- NOTE | 2018-07-24 13:33 | CT ---
ABDOMEN AND PELVIC CT SCAN WITH CONTRAST: HISTORY: Abdominal pain COMPARISON: None FINDINGS: Bibasilar densities which may relate to atelectasis are partially visualized Liver: Cirrhotic morphology Gallbladder: Moderate distention with cholelithiasis Pancreas: Unremarkable Spleen: There is enlargement of the spleen, approximately 14 cm in length Adrenal glands: Unremarkable. Kidneys: No renal calculus or acute obstruction. No solid or cystic mass. Bowel: Bowel is incompletely assessed without enteric contrast. There is wall prominence throughout t he bowel which may relate to thickening from hypoproteinemia in light of the concomitant findings Urinary Bladder: The urinary bladder is unremarkable. Adenopathy: No adenopathy within the abdomen or pelvis. Free Air: No free air. Ascites: Moderate generalized ascites There is a fluid containing periumbilical hernia adjacent to a small fat-containing ventral abdominal wall hernia. Osseous structures: No acute osseous abnormalities. IMPRESSION: 1. Cirrhosis and portal hypertension. 2. Cholelithiasis. 3. Wall prominence of the bowel which could relate to hypoproteinemia. Recommend clinical correlatio n to exclude evidence of enteritis. Transcribed Date/Time: 07/24/2018 1:36 PM
[2018-07-24 13:42] LABS: Hyaline Casts/LPF 7-10 HYALINE CAST LPF (0-3 Hyaline)
[2018-07-24 13:43] LABS: Other Casts/LPF 0-3 EPITH CASTS LPF (0-3 Hyaline); Renal Epithelial 0-3 HPF (0-3); Transitional Epithelial 0-3 HPF (0-3)
[2018-07-24] MEDS ORDERED: ISOVUE-370 76%-LOCM 1 ML ONE (15:03)
[2018-07-24 15:32] LABS: Troponin I Less than 0.010 ng/mL (< 0.028)
[2018-07-24 17:34] LABS: Troponin I Less than 0.010 ng/mL (< 0.028)
[2018-07-24] MEDS ORDERED: Lorazepam 0.5 MG TAB PO PRN (19:19)
[2018-07-24] MEDS ORDERED: Ondansetron ODT 4 MG TAB PO PRN (19:19)
[2018-07-24] MEDS ORDERED: hydrALAZINE 20 MG/ML VIAL SLOW IVP PRN (19:19)
[2018-07-24] MEDS ORDERED: Ondansetron PF 4 MG/2 ML Vial IVP PRN (19:19)
[2018-07-24] MEDS ORDERED: traMADol HCl 50 MG TAB PO PRN (19:19)
[2018-07-24 20:29] VITALS: BMI 30.9
[2018-07-24] MEDS: Famotidine 20 MG TAB PO SCH (20:45)
[2018-07-24] MEDS: Piperacillin/Tazobactam 3.375 GM in Sodium Chloride 0.9% 100 ML IVPB SCH (20:45)
--- NOTE | 2018-07-24 22:37 | HP ---
PRIMARY CARE PHYSICIAN: Dr. Félix Harkins. CHIEF COMPLAINT: Abdominal pain. HISTORY OF PRESENT ILLNESS: Ms. Green is a very pleasant 58-year-old female, who has a history of advanced cirrhosis as well as hypertension, hyperlipidemia, and hypothyroidism. She was recently discharged from our facility a few days ago where she was treated for Clostridium difficile colitis. She said she was a little bit better with regard to her abdominal pain, but it had not completely gone away. Then, she says she awoke this morning with her legs swollen and red and worse abdominal pain. She says it is diffuse on both sides of her abdomen and she says the pain was so bad she could hardly stand up. She also notes increasing swelling in her abdomen and says she believes that the fluid has built back up again. She also says that when she eats she gets a really big pain on both sides of her abdomen and then she will immediately have to go to the bathroom and have a bowel movement. She says she has been having a low-grade temperature and it started at around 4 o'clock as well. She came to the emergency room for evaluation where she is found to have a fairly tense ascites and a urine, which is consistent for urinary tract infection. REVIEW OF SYSTEMS: All systems were reviewed and are negative except for that mentioned in the history of present illness. PAST MEDICAL HISTORY: Significant for alcoholic cirrhosis, hypertension, hyperlipidemia, peripheral vascular disease, hypothyroidism, and chronic anemia. PAST SURGICAL HISTORY: She has had an endoscopy, colonoscopy, and hernia repair. ALLERGIES: TYLENOL. ROCEPHIN, WHICH SHE SAYS CAUSES RED WELTS. LEVOTHYROXINE, BUT SHE CAN TAKE THE BRAND NAME SYNTHROID. MOXIFLOXACIN, SHE SAYS IT CAUSES HER TO GASP FOR AIR AND SHE HAD TO USE HER EPIPEN, BUT SHE SAYS SHE CAN TAKE CIPROFLOXACIN AND THINKS THAT SHE IS ALLERGIC TO "BASE OF THE ANTIBIOTIC" AND SHE SAYS BACTRIM CAUSES ANAPHYLAXIS WELL. SHE IS ABLE TO TAKE PENICILLIN. FAMILY HISTORY: Significant for hypertension. SOCIAL HISTORY: She is . She has one son who . She has not designated a surrogate decision maker. She says that she is talking with her sister about this now. She currently smokes a few cigarettes a day. She quit smoking about 20 days ago. She lives alone. She says that she is considering going to live with her sister. She wants to be a DNR and she is even considered a hospice care. CURRENT MEDICATIONS: 1. Ativan 0.5 mg as needed, frequency is unknown. 2. Librium 10 mg as needed. Again, frequency unknown. 3. ProAir inhaler p.r.n. 4. Synthroid 100 mcg daily. PHYSICAL EXAMINATION: GENERAL: She is alert and oriented. She is in no acute distress. She is chronically ill in appearance. She is well developed and well nourished. VITAL SIGNS: Blood pressure was 116/55, heart rate 84, respiratory rate of 24, temperature is 98.4, O2 saturation is 98% on room air. HEENT: Her pupils are equal, round, and reactive. Extraocular muscles are intact. Sclerae, she has scleral icterus. Throat, there is jaundice. NECK: There is no adenopathy. No bruits. LUNGS: Clear to auscultation. There is no wheezing, no rales, no rhonchi. CARDIOVASCULAR: She has a normal S1 and S2. There is no S3 or S4. No murmurs, clicks, or rubs. ABDOMEN: Distended. There is a positive fluid wave, it is diffusely tender. There is no rebound, no guarding. EXTREMITIES: She has 1 to 2+ pitting edema. In her lower extremities, she has significant muscle wasting, however no erythema. NEUROLOGIC: Her cranial nerves are intact. Muscle strength is 5/5 in both upper and lower extremities. SKIN AND INTEGUMENT: Other than jaundice, there are no significant skin lesions. LABORATORY DATA: White blood cell count 11.8, hemoglobin 9.9, hematocrit is 31, and platelet count was 220. INR is 1.7. Sodium 136, potassium 3.6, chloride is 105, CO2 is 18, BUN of 7, creatinine 1.06, glucose is 96, bilirubin is 12.5, albumin was 2.6. Urinalysis, nitrite positive, small leukocyte esterase, and 2+ bacteria. She had a CT scan of the abdomen and pelvis, which showed some cirrhosis and portal hypertension. There is evidence of cholelithiasis. There is some bowel wall prominence which could be related to hypoproteinemia. ASSESSMENT: This is a pleasant 58-year-old female, who is being admitted for abdominal pain. It appears that this is likely as a result of combination of ascites and urinary tract infection. 1. For the urinary tract infection, we will place her on empiric Zosyn as she says she is able to take penicillin antibiotics. This will cover hopefully for any intraabdominal infection as well. Await culture results and treat appropriately. 2. Ascites. We will consult Interventional Radiology for a therapeutic as well as diagnostic paracentesis. We will also be checking the fluid for cell count and diff to rule out spontaneous bacterial peritonitis. Again, she will be on Zosyn to cover for this. 3. Cirrhosis. We will continue her usual medications. 4. Hypothyroidism. The patient says that she is unable to take the generic thyroid medications, therefore she will be able to take her own. 5. DVT prophylaxis, this will be with SCDs only due to her elevated protime. Job ID: [id number]
[2018-07-25] MEDS: Piperacillin/Tazobactam 3.375 GM in Sodium Chloride 0.9% 100 ML IVPB SCH ×4 (01:34→19:31)
[2018-07-25 05:00] LABS: #Basophils 0.1 thou/uL (0.0-0.2); #Eosinphils 0.2 thou/uL (0.0-0.7); #Lymphocytes 1.8 thou/uL (1.20-3.40); #Monocytes 1.1 thou/uL (0.11-0.59); #Neutrophils 9.4 thou/uL (1.40-6.50); %Basophils 0.7 % (0.0-1.0); %Eosinophils 1.5 % (0.0-10.0); %Monocytes 8.9 % (0.0-10.0); %Neutrophils 74.9 % (42.0-75.0); Hemoglobin 8.4 g/dL (12.0-16.0); Mean Corpuscular HGB CONC 32.2 g/dL (32.0-36.0); Mean Corpuscular Hemoglobin 33.5 pg (27.0-31.0); Platelet Count 180 thou/uL (130-400); RBC Distribution Width 17.1 % (11.5-14.5); White Blood Cell (WBC) Count 12.6 thou/uL (4.8-10.8)
[2018-07-25 05:13] LABS: Anion Gap 12 mmol/L (10-20); BUN (Urea Nitrogen) 6 mg/dL (9.8-20.1); Calc. Creatinine Clearance 76 mL/min (70-130); Calcium 7.9 mg/dL (7.8-10.44); Carbon Dioxide 20 mmol/L (22-29); Chloride 107 mmol/L (98-107); Estimated GFR-MDRD 56; Glucose 82 mg/dL (70-105); Potassium 3.1 mmol/L (3.5-5.1); Sodium 136 mmol/L (136-145)
[2018-07-25] MEDS: Famotidine 20 MG TAB PO SCH ×2 (08:18→19:31)
--- NOTE | 2018-07-25 11:23 | ULT ---
Ultrasound-guided paracentesis: HISTORY: Cirrhosis and ascites. FINDINGS: Informed consent obtained prior to the procedure. Preprocedural imaging demonstrated intrap eritoneal free fluid. An area was marked in the midaxillary line right upper quadrant, and then meticulously prepped and dr aped in normal sterile fashion and anesthetized with 1% buffered lidocaine. With direct sonographic guidance, a 19-gauge needle and 5 Japanese Yueh catheter were advanced into the abdomen. After the return of fluid, the catheter was advanced, and the needle was removed. Approximately 3 L of clear straw-colored fluid was aspirated. Catheter was removed, hemostasis was ac hieved with direct pressure. The patient tolerated the procedure well and without immediate complication. IMPRESSION: Technically successful ultrasound-guided paracentesis.
[2018-07-25 14:02] LABS: BF Color Yellow; BF WBC/Nonhematics Ct. - Manua 70 /cumm; Body Fluid Source Ascites Body Fluid; Clarity Clear (Clear); Tube # EDTA
[2018-07-25 14:03] LABS: BF RBC Count - Manual 28 /cumm
[2018-07-25] MEDS ORDERED: Saccharomyces boulardii 250 MG CAP PO SCH (14:30)
[2018-07-25] MEDS ORDERED: Potassium Chloride 20 MEQ TAB PO SCH (14:30)
[2018-07-25 14:33] LABS: BF Segmented Neutrophils 8 %; Cell Count Non Hematic 79 %; Eosinophils 1 %; Lymphocytes 12 %
[2018-07-25] MEDS: PROVENTIL INHALER 6.7 G (200 INHALATIONS) INH SCH (18:11)
--- NOTE | 2018-07-25 19:13 | PRG ---
DATE OF SERVICE: 07/25/2018 SUBJECTIVE: Ms. Green is a pleasant 58-year-old female with end-stage liver disease and cirrhosis with portal hypertension, recent admission for C. diff colitis, who presented to the hospital with complaints of worsening abdominal pain. The patient has been admitted for therapeutic and diagnostic paracentesis. This morning, she underwent ultrasound-guided paracentesis with 3 L of fluid removed. The patient states that she feels much, much improved. She denies any abdominal pain at this time. Her presenting symptoms have resolved. She does say that she has continued to have some diarrhea since her last discharge. She was discharged from our facility on July 20 after she had been with C. diff colitis, the patient admits to not getting her prescriptions filled and not continuing Flagyl as she was supposed to. She denies any dysuria at this time. No chest pain or shortness of breath. No fever or chills. OBJECTIVE: VITAL SIGNS: Blood pressure 101/53, pulse is 85, respirations are 16, and O2 saturation is 98% on room air. The patient is afebrile, temperature 98.3. GENERAL: Alert and oriented. No acute distress. She does have a somewhat chronically ill appearance, but is well-developed and well-nourished. HEENT: Atraumatic and normocephalic. Positive for scleral icterus. NECK: No lymphadenopathy. No JVD. Trachea is midline. LUNGS: Regular respiratory rate and pattern. Clear to auscultation bilaterally. CV: S1 and S2. Regular rate and rhythm. No appreciable murmurs, rubs, or gallops. ABDOMEN: Positive bowel sounds, soft, and nontender, post paracentesis. EXTREMITIES: A +1 pitting edema bilaterally. NEUROLOGIC: Cranial nerves 2 through 12 are intact. The patient is nonfocal. SKIN: Positive for jaundice. Otherwise, there are no rashes, abrasions, or other discolorations. LABORATORY DATA: White blood cell count 12.1, hemoglobin 8.4, hematocrit 26.1, and platelets are 180. Sodium 136, potassium 3.1, chloride 107, carbon dioxide 20, anion gap 12, BUN 6, creatinine 1.01, GFR is 56, and glucose 82. Bilirubin on arrival was 12.5, AST 62, ALT 24, and alkaline phosphatase 169. Troponin negative x3. Urinalysis was positive for bacteria and leukocyte esterase. Culture is presumptive positive for greater than 100,000 CFU per mL of Enterococcus. ASSESSMENT: 1. Abdominal pain at presentation secondary to ascites, status post ultrasound-guided paracentesis, with resolution of symptoms. 2. End-stage liver disease and cirrhosis with resulting hyperbilirubinemia, ascites, and portal hypertension. 3. History of alcoholism with resulting liver disease and cirrhosis. The patient states no alcohol use in past 21 days. 4. History of Clostridium difficile colitis during recent hospitalization with noncompliance with medical treatment and continued diarrhea. 5. Urinary tract infection, culture positive for Enterococcus, sensitivities pending. 6. Hypokalemia. PLAN: We will continue Zosyn and await sensitivities from urine culture. We will replete potassium. We will obtain C. diff assay as well. The patient may need continued treatment with Flagyl as well. The patient does have a history of being on hospice, however, at this time, the patient does not want to continue with hospice care and this was discussed with the patient at length. Further recommendations based on hospital course. Care was discussed with Dr. Maria, who agrees with the above. Job ID: [id number]
[2018-07-26] MEDS: PROVENTIL INHALER 6.7 G (200 INHALATIONS) INH SCH ×3 (00:13→13:15)
[2018-07-26] MEDS ORDERED: Sodium Chloride 0.45% 250 ML IV SCH (00:30)
[2018-07-26] MEDS: Sodium Chloride 0.45% 1,000 ML IV SCH ×2 (00:34→10:20)
[2018-07-26] MEDS: Piperacillin/Tazobactam 3.375 GM in Sodium Chloride 0.9% 100 ML IVPB SCH ×3 (01:18→14:45)
[2018-07-26 05:58] LABS: Anion Gap 10 mmol/L (10-20); BUN (Urea Nitrogen) 7 mg/dL (9.8-20.1); Calc. Creatinine Clearance 72 mL/min (70-130); Calcium 7.7 mg/dL (7.8-10.44); Carbon Dioxide 23 mmol/L (22-29); Chloride 107 mmol/L (98-107); Estimated GFR-MDRD 53; Glucose 81 mg/dL (70-105); Potassium 3.1 mmol/L (3.5-5.1); Sodium 137 mmol/L (136-145)
[2018-07-26] MEDS ORDERED: Levothyroxine Sodium 112 MCG TAB PO SCH (06:00)
[2018-07-26] MEDS ORDERED: Levothyroxine Sodium 25 MCG TAB PO SCH (06:00)
[2018-07-26] MEDS ORDERED: Potassium Chloride 20 MEQ TAB PO SCH ×3 (08:30→12:15)
[2018-07-26] MEDS ORDERED: Multivitamin W/ Minerals 1 TAB PO SCH (09:00)
[2018-07-26] MEDS ORDERED: Non-Formulary Item 1 EACH (Levothyroxine Sodium [Synthroid] 137 MCG) PO SCH (09:00)
[2018-07-26] MEDS ORDERED: Saccharomyces boulardii 250 MG CAP PO SCH (09:00)
[2018-07-26] MEDS: Famotidine 20 MG TAB PO SCH (10:30)
[2018-07-26] MEDS ORDERED: Spironolactone 25 MG TAB PO SCH (10:30)
[2018-07-26 15:04] LABS: Potassium 3.6 mmol/L (3.5-5.1)
[2018-07-26 15:59] VITALS: BP 91/52; TEMP 99.3
--- NOTE | 2018-07-27 05:13 | DIS ---
DATE OF ADMISSION: 07/24/2018 DATE OF DISCHARGE: 07/26/2018 ALLERGIES: ACETAMINOPHEN, CEFTRIAXONE, LEVOTHYROXINE, MOXIFLOXACIN, NICOTINE, QUINOLONES, SULFAMETHOXAZOLE/TRIMETHOPRIM. CHIEF COMPLAINT: Abdominal pain and abdominal swelling. FINAL DIAGNOSES: 1. Abdominal pain at presentation secondary to ascites status post ultrasound-guided paracentesis with 3 L of fluid removed, with resolution of symptoms. 2. End-stage liver disease and cirrhosis with resulting hyperbilirubinemia, ascites, and portal hypertension. 3. History of alcoholism with resulting liver disease and cirrhosis, the patient reports no alcohol use in the past 21 days. 4. History of recent admission for Clostridium difficile colitis during recent hospitalization with noncompliance with medical treatment. 5. Urinary tract infection, culture positive for Enterococcus, sensitive to Macrobid. 6. Hypokalemia, resolved. 7. Hypothyroidism. PROCEDURES PERFORMED: Ultrasound-guided paracentesis, with 3 L of clear straw-colored fluid aspirated. IMAGING RESULTS: Chest x-ray, mild linear atelectasis right lung base. Abdomen and pelvic CT scan with contrast shows cirrhosis and portal hypertension, cholelithiasis, prominence of bowel, which could relate to hypoproteinemia. CONSULTATIONS: None. VITAL SIGNS: Blood pressure 91/52, pulse is 88, the patient is afebrile, temperature 97.6. HOSPITAL COURSE: The patient is a 58-year-old female with past medical history significant for end-stage cirrhosis and portal hypertension, likely secondary to alcoholism and recent admission at this facility for C. diff colitis, who presented to the hospital with complaints of worsening abdominal pain. She described the pain is diffuse, and was somewhat worse with eating, but also worse with standing. She reports increasingly distended abdomen and some worsening pedal edema. She reported a low-grade temperature at home, although has been afebrile since her arrival. Workup in the ED included UA which was positive for urinary tract infection. Culture showed that it was positive for enterococcus with susceptibility to Macrobid. The patient was empirically started on Zosyn. Regarding her recent admission with C. diff colitis, the patient states that she did not fill her prescription for Flagyl and she has not been taking that medication. She had reported some intermittent diarrhea, and stool was again tested for C. diff, which was negative. The patient underwent ultrasound-guided paracentesis with 3 L of fluid removed, which resulted in resolution of all of her presenting symptoms of abdominal pain and shortness of breath. She felt much improved. She never complained of any dysuria. She has had no nausea or vomiting. She denies any chest pain. She has no complaints to me at this time. PHYSICAL EXAMINATION: GENERAL: The patient is alert and oriented, in no acute distress. She does have a somewhat chronically ill appearance, but is well developed and well nourished. HEENT: Atraumatic and normocephalic. Positive for scleral icterus. NECK: No lymphadenopathy. No JVD. Trachea is midline. LUNGS: Regular respiratory rate and pattern. Clear to auscultation bilaterally. CV: S1 and S2. Regular rate and rhythm. No appreciable murmurs, rubs, or gallops. ABDOMEN: Positive bowel sounds. Soft and nontender post paracentesis, but does remain distended. EXTREMITIES: +1 pitting edema bilaterally. NEUROLOGIC: Cranial nerves 2 through 12 are intact. The patient is nonfocal. SKIN: Positive for jaundice. Otherwise, there is no rashes, abrasions, or other discolorations. CONDITION AT DISCHARGE: Stable. DISCHARGE MEDICATIONS: 1. Librium 10 mg capsule one capsule p.o. b.i.d. 2. Lorazepam 0.5 mg tablet one tablet daily. 3. Albuterol sulfate inhaler one puff p.r.n. wheezing. 4. Synthroid 137 mcg tablet one tablet daily. 5. Magnesium oxide 400 mg tablet one tablet daily. 6. Multivitamin with Theragran one tablet daily. 7. Protonix 40 mg tablet one tablet daily. 8. Spironolactone 25 mg tablet one tablet daily. New medication will be Macrobid 100 mg capsule one capsule p.o. b.i.d. for the next 7 days. DISCHARGE DISPOSITION: Home. PLAN: The patient has been counseled extensively on compliance with her medications. Overall, given the patient's end-stage liver disease, her overall prognosis remains poor. She had previously agreed to hospice care, but has declined hospice now and wishes to go home. I have explained to her that her ascites will likely reoccur and she will have to have repeat therapeutic paracentesis in the future. She should continue to abstain from alcohol use. The care of this patient has been discussed with Dr. Maria who agrees with the above. Job ID: [id number]
[2018-07-27] MEDS ORDERED: Spironolactone 25 MG TAB PO SCH (09:00)
== END 2018-07-26 16:28 | disposition home or self-care (01) ==
LOC: ERS 10:55 → ERHOLD 14:25 → 2SW 19:05
PROVIDERS: ADMIT Internal Medicine; ATTEND Internal Medicine
PROC: 0W9G3ZX Drainage of Peritoneal Cavity, Percutaneous Approach, Diagnostic (ICD-10-PCS; principal; 2018-07-25)
DX: K70.31 Alcoholic cirrhosis of liver with ascites (principal); K72.90 Hepatic failure, unspecified without coma; K76.6 Portal hypertension; E80.6 Other disorders of bilirubin metabolism; N39.0 Urinary tract infection, site not specified; B95.2 Enterococcus as the cause of diseases classified elsewhere; E78.5 Hyperlipidemia, unspecified; E03.9 Hypothyroidism, unspecified; D64.9 Anemia, unspecified; I10 Essential (primary) hypertension; F17.210 Nicotine dependence, cigarettes, uncomplicated; F10.11 Alcohol abuse, in remission; E87.6 Hypokalemia; Z88.1 Allergy status to other antibiotic agents; Z88.8 Allergy status to other drugs, medicaments and biological substances; Z66 Do not resuscitate; Z79.899 Other long term (current) drug therapy; Z91.14 Patient's other noncompliance with medication regimen
CPT/HCPCS: 36415; 49083; 51701; 71045; 74177; 80048; 80053; 81003; 81015; 82140; 82550; 83605; 83690; 84484; 85025; 85060; 85610; 85730; 87040; 87070; 87077; 87086; 87186; 87205; 87324; 87449; 89051; 93005; 94760; 96361; 96365; 96366; 96367; 96375; G0378; J2270; J2543; J3370; J3490; Q0162; Q9966

== ENCOUNTER 2018-07-30 03:35 | Observation (INO) | payer SELFPAY ==
[2018-07-30] MEDS ORDERED: Morphine 4 MG/ML VIAL ONE ×2 (04:47→17:59)
[2018-07-30 05:06] LABS: #Eosinphils 0.3 thou/uL (0.0-0.7); #Lymphocytes 2.2 thou/uL (1.20-3.40); #Monocytes 1.4 thou/uL (0.11-0.59); #Neutrophils 9.6 thou/uL (1.40-6.50); %Basophils 0.3 % (0.0-1.0); %Eosinophils 1.9 % (0.0-10.0); %Lymphocytes 16.6 % (21.0-51.0); %Monocytes 10.3 % (0.0-10.0); %Neutrophils 70.9 % (42.0-75.0); Hemoglobin 8.9 g/dL (12.0-16.0); Mean Corpuscular HGB CONC 32.1 g/dL (32.0-36.0); Mean Platelet Volume 8.6 fL (7.4-10.4); Platelet Count 155 thou/uL (130-400); RBC Distribution Width 16.9 % (11.5-14.5); Red Blood Cell (RBC) Count 2.71 mill/uL (4.20-5.40); White Blood Cell (WBC) Count 13.5 thou/uL (4.8-10.8)
[2018-07-30 05:48] LABS: INR-International Normal Ratio 1.8; Prothrombin Time 20.5 SEC (12.0-14.7)
[2018-07-30 05:49] LABS: PTT 52.7 SEC (22.9-36.1)
[2018-07-30 06:00] LABS: ALT (SGPT) 18 U/L (8-55); AST (SGOT) 54 U/L (5-34); Albumin 2.2 g/dL (3.5-5.0); Alkaline Phosphatase 128 U/L (40-150); Anion Gap 11 mmol/L (10-20); BUN (Urea Nitrogen) 6 mg/dL (9.8-20.1); Bilirubin, Total 10.1 mg/dL (0.2-1.2); CK (CPK) 49 U/L (29-168); Calc. Creatinine Clearance 0 mL/min (70-130); Carbon Dioxide 22 mmol/L (22-29); Chloride 107 mmol/L (98-107); Estimated GFR-MDRD 59; Globulin 4.1 g/dL (2.4-3.5); Glucose 85 mg/dL (70-105); Lipase 48 U/L (8-78); Protein, Total 6.3 g/dL (6.0-8.3); Sodium 137 mmol/L (136-145)
[2018-07-30] MEDS ORDERED: Potassium Chloride 20 MEQ TAB ONE (06:06)
[2018-07-30] MEDS ORDERED: MEROPENEM 1 GM/50 ML 1 GM in Premix Bag 1 BAG IVPB SCH (06:30)
[2018-07-30 08:30] LABS: Bacteria/HPF None Seen HPF (None Seen); RBC/HPF 0-3 HPF (0-3); WBC/HPF 0-3 HPF (0-3)
[2018-07-30 08:44] LABS: Pathc Cast-AUWi Flag 10.74 (0-2.49); Yeast-AUWi Flag 28.5 (0-25.0)
[2018-07-30 08:45] LABS: Bilirubin Unable to Interpret (Negative); Blood, Urine Unable to Interpret (Negative); Clarity Hazy (Clear); Glucose, Urine (Dipstick) Unable to Interpret mg/dL (Negative); Leukocyte Unable to Interpret (Negative); Nitrite Unable to Interpret (Negative); Protein, Urine (Dipstick) Unable to Interpret mg/dL (Neg-Trace); Specific Gravity, Urine 1.023 (1.002-1.036); Urobilinogen UNABLE TO INTERPRET mg/dL (0.2-1.0); pH, Urine 5.9 (5.0-9.0)
[2018-07-30] MEDS ORDERED: Magnesium 2 GM/50 ML 2 GM in Premix Bag 1 BAG IVPB SCH (08:45)
[2018-07-30 08:54] LABS: Crystals/HPF None Seen HPF (Negative); Hyaline Casts/LPF 0-3 HYALINE CAST LPF (0-3 Hyaline); Manual Microscopic Reviewed? No Path Casts Seen; Yeast-All Forms None Seen HPF (None Seen)
--- NOTE | 2018-07-30 08:58 | RAD ---
AP CHEST: Date: 07/30/18 HISTORY: Dyspnea. COMPARISON: 07/24/18. FINDINGS: Elevation right hemidiaphragm. Streaky atelectasis and/or infiltrative changes in both lung bases. Ev idence of small bilateral effusions. Upper lung zones remain clear and unchanged. IMPRESSION: Bibasilar atelectasis and/or infiltrates. POS: OFF
[2018-07-30] MEDS ORDERED: Non-Formulary Item 1 EACH (Levothyroxine Sodium [Synthroid] 137 MCG) PO SCH (09:00)
[2018-07-30] MEDS: Magnesium Oxide 400 MG TAB PO SCH (09:24)
[2018-07-30] MEDS: Spironolactone 25 MG TAB PO SCH (09:25)
--- NOTE | 2018-07-30 11:44 | ULT ---
LIMITED ABDOMINAL ULTRASOUND: Date: 07/30/18 Four quadrant ultrasound obtained. INDICATION: Assess for ascites. FINDINGS/IMPRESSION: Moderate volume ascites seen in all quadrants of the abdomen. POS: OFF
[2018-07-30 13:37] LABS: Potassium 3.4 mmol/L (3.5-5.1)
[2018-07-30] MEDS ORDERED: Loperamide HCl 2 MG CAP PO PRN (13:56)
[2018-07-30] MEDS ORDERED: Ondansetron PF 4 MG/2 ML Vial IVP PRN (13:56)
--- NOTE | 2018-07-30 14:34 | HP ---
CHIEF COMPLAINT: Abdominal pain. HISTORY OF PRESENT ILLNESS: Ms. Green is an unfortunate 58-year-old female with medical history significant for end-stage liver disease secondary to alcoholic cirrhosis, with multiple and frequent hospitalizations secondary to complications from this principal diagnosis. Her most recent hospitalization at this facility was 07/24/2018 to 07/26/2018. At that time, she presented with abdominal pain, which was secondary to ascites, and was much improved after paracentesis with 3 L fluid removed. During that hospitalization, she was also diagnosed with the UTI, culture positive for Enterococcus faecalis, which was across the board susceptible to all antibiotics tested except tetracycline. She was sent home with a prescription for Macrobid at that time. The patient states that she has been compliant with this medication. She presents with complaints of abdominal pain, swelling, and resulting poor appetite. She also complains of some increased thirst. This morning, she also had some associated lightheadedness and a feeling of presyncope. She denies any chest pain or palpitations. She continues to smoke one pack of cigarettes per day, but states that she has not had an alcoholic drink in 25 days now. Workup on admission included lab work, which was significant for a magnesium level of 0.9, and a potassium of 3.0. Her ammonia was normal at 33, and total bilirubin was elevated at 10.1, although this is lower than it has been on previous admissions. She has no complaints of fever. She has had no dysuria. Of note, at one of her earlier admissions this month, the patient was discharged with hospice care. However, at her most recent hospitalization, she declined hospice and wished to go home. REVIEW OF SYSTEMS: A 12-point review of systems is performed and is largely negative except as stated above. She has had no sick contacts. She has had no fever or chills. She does report intermittent diarrhea, which has been fairly chronic for her. Her last fecal screen this past week showed no evidence of C diff. The patient reports lower extremity edema, which has been stable. PAST MEDICAL HISTORY: Significant for; 1. Alcoholic cirrhosis as stated above. 2. Hypertension. 3. Hyperlipidemia. 4. Peripheral vascular disease. 5. Hypothyroidism. 6. Chronic anemia. 7. History of recent upper GI bleeding. 8. History of hemorrhoids. 9. History of multiple therapeutic paracenteses. PAST SURGICAL HISTORY: 1. Endoscopy. 2. Colonoscopy. 3. Hernia repair. 4. Multiple paracenteses, resulting from her cirrhosis. ALLERGIES: 1. ACETAMINOPHEN. 2. CEFTRIAXONE. 3. LEVOTHYROXINE. 4. MOXIFLOXACIN. 5. NICOTINE PATCH. 6. QUINOLONES. 7. SULFA. 8. TRIMETHOPRIM. HOME MEDICATIONS: These are obtained from her prior discharge, which she should have been discharged home on; 1. Librium 10 mg capsule one capsule p.o. b.i.d. 2. Lorazepam 0.5 mg tablet one tablet daily. 3. Albuterol sulfate inhaler one puff p.r.n. 4. Synthroid 137 mcg tablet daily. 5. Magnesium 400 mg tablet daily. 6. Multivitamin with Theragran one tablet daily. 7. Protonix 40 mg daily. 8. Spironolactone 25 mg daily. SOCIAL HISTORY: The patient continues to smoke one pack per day of cigarettes. She is a known alcoholic, but states that she has not had any alcohol in 25 days. She lives alone, but does have a sister in [place]. FAMILY HISTORY: Noncontributory. CODE STATUS: Do not resuscitate. PHYSICAL EXAMINATION: VITAL SIGNS: Blood pressure 114/40, pulse 90, O2 saturation is 94% on room air , she is afebrile, temperature 97.5. GENERAL: The patient is alert and oriented x3. She is in mild distress from abdominal pain. She has a chronically ill appearance with positive scleral icterus and jaundice. HEENT: Atraumatic and normocephalic. Mucous membranes are moist. Positive for scleral icterus. NECK: No lymphadenopathy. No JVD. Trachea is midline. LUNGS: Regular respiratory rate and pattern. She has expiratory wheezes noted. CV: S1 and S2. Regular rate and rhythm. No appreciable murmurs, rubs, or gallops. ABDOMEN: Positive bowel sounds. Abdomen is distended and tense, diffusely tender. EXTREMITIES: A +1 pitting edema bilaterally. NEUROLOGIC: Cranial nerves 2 through 12 intact are intact. The patient is nonfocal. SKIN: No obvious rashes. Positive for jaundice as mentioned above. LABORATORY DATA: White blood cell count 13.5, hemoglobin 8.9, hematocrit 27.9, MCV 103, and platelet count is 155. PT 20.5, INR 1.8, and aPTT 52.7. Sodium 137, potassium 3.0, chloride 107, carbon dioxide 22, BUN 6, creatinine 0.97, and GFR 59. Lactic acid is 1.1. Magnesium 0.9. Bilirubin 10.8, AST 54, ALT 18, and alkaline phosphatase 128. Ammonia 33. BNP 120. Troponin is negative. Lipase is 48. Urinalysis is pending. IMAGING STUDIES: Abdominal ultrasound shows moderate amount of ascites. Chest x-ray shows bibasilar atelectasis and/or infiltrates. ASSESSMENT: 1. Abdominal pain secondary to recurrent ascites in the setting of end-stage liver disease from alcoholic cirrhosis. 2. Hypomagnesemia. 3. Hypokalemia. 4. Hyperbilirubinemia, stable. 5. Anemia of chronic disease. 6. Urinary tract infection, diagnosed at prior admission, culture positive for susceptible Enterococcus faecalis. 7. Tobacco abuse with resulting chronic obstructive pulmonary disease. 8. Hypothyroidism. PLAN: Interventional Radiology will perform paracentesis tomorrow. Will continue the patient's home medications, and to aggressively replete her electrolytes. Overall, given the patient's end-stage liver disease, her prognosis remains poor. There is a palliative care consult in place at this time. The care of this patient has been discussed with Dr. Perkins, who agrees with the above. We will continue the patient's dosing of Macrobid as well. Further recommendations based on hospital course. Job ID: [id number] [facility]
[2018-07-30] MEDS ORDERED: Morphine 2 MG/ML SYRINGE SLOW IVP PRN (18:16)
[2018-07-30] MEDS: Nitrofurantoin Monohyd/M-Cryst 100 MG CAP PO SCH (21:28)
[2018-07-30] MEDS: Ibuprofen 200 MG TAB PO PRN (23:24)
[2018-07-31] MEDS ORDERED: traMADol HCl 50 MG TAB PO PRN (01:39)
[2018-07-31] MEDS: Ibuprofen 200 MG TAB PO PRN (03:26)
[2018-07-31] MEDS ORDERED: Levothyroxine Sodium 112 MCG TAB PO SCH (06:00)
[2018-07-31] MEDS ORDERED: Levothyroxine Sodium 25 MCG TAB PO SCH (06:00)
[2018-07-31] MEDS ORDERED: Ketorolac Tromethamine 30 MG/ML VIAL IVP SCH (06:15)
[2018-07-31] MEDS: Spironolactone 25 MG TAB PO SCH (08:06)
[2018-07-31] MEDS: Magnesium Oxide 400 MG TAB PO SCH (08:06)
[2018-07-31] MEDS: Nitrofurantoin Monohyd/M-Cryst 100 MG CAP PO SCH (08:06)
[2018-07-31 11:03] LABS: Anion Gap 10 mmol/L (10-20); BUN (Urea Nitrogen) 7 mg/dL (9.8-20.1); Calc. Creatinine Clearance 55 mL/min (70-130); Calcium 7.8 mg/dL (7.8-10.44); Carbon Dioxide 21 mmol/L (22-29); Chloride 108 mmol/L (98-107); Estimated GFR-MDRD 42; Glucose 89 mg/dL (70-105); Magnesium 1.3 mg/dL (1.6-2.6); Potassium 3.2 mmol/L (3.5-5.1); Sodium 136 mmol/L (136-145)
[2018-07-31] MEDS ORDERED: Sodium Bicarbonate 2.5 MEQ/5 ML VIAL ONE (13:16)
[2018-07-31 14:35] VITALS: BMI 29.6
[2018-07-31] MEDS ORDERED: Potassium Chloride 20 MEQ TAB PO SCH (14:45)
[2018-07-31] MEDS ORDERED: Magnesium 2 GM/50 ML 2 GM in Premix Bag 1 BAG IVPB SCH (15:00)
--- NOTE | 2018-07-31 16:26 | ULT ---
Ultrasound-guided paracentesis: History: Ascites. Informed consent was obtained from the patient. A collection of fluid was localized in the right uppe r quadrant of the abdomen. The overlying skin was prepped and draped in the usual sterile manner. A 1% lidocaine solution was used to anesthetize the overlying soft tissues. A small orbitotomy was made . A 5 Wolof Yueh needle was placed into the peritoneal cavity. A total of 3700 mL of peritoneal fluid was removed without difficulty. IMPRESSION: Successful ultrasound-guided paracentesis. Transcribed Date/Time: 07/31/2018 5:37 PM
[2018-07-31 20:31] VITALS: TEMP 97.8
[2018-07-31 20:41] VITALS: BP 95/55
== END 2018-07-31 20:18 | disposition home or self-care (01) ==
LOC: ERS 03:35 → ERHOLD 06:12 → INTOOBSV 06:12 → 2SW 06:27
PROVIDERS: ADMIT Family Medicine; ATTEND Family Medicine
PROC: 0W9G3ZZ Drainage of Peritoneal Cavity, Percutaneous Approach (ICD-10-PCS; principal; 2018-07-31)
DX: K70.31 Alcoholic cirrhosis of liver with ascites (principal); K72.90 Hepatic failure, unspecified without coma; F17.210 Nicotine dependence, cigarettes, uncomplicated; I10 Essential (primary) hypertension; E78.5 Hyperlipidemia, unspecified; I73.9 Peripheral vascular disease, unspecified; E03.9 Hypothyroidism, unspecified; E83.42 Hypomagnesemia; E87.6 Hypokalemia; E80.6 Other disorders of bilirubin metabolism; N39.0 Urinary tract infection, site not specified; B95.2 Enterococcus as the cause of diseases classified elsewhere; J44.9 Chronic obstructive pulmonary disease, unspecified; D63.8 Anemia in other chronic diseases classified elsewhere; Z88.1 Allergy status to other antibiotic agents; Z88.2 Allergy status to sulfonamides; Z88.8 Allergy status to other drugs, medicaments and biological substances; Z79.899 Other long term (current) drug therapy; Z66 Do not resuscitate
CPT/HCPCS: 36415; 49083; 51701; 71045; 76705; 80048; 80053; 81003; 81015; 82140; 82550; 83605; 83690; 83735; 83880; 84484; 85025; 85610; 85730; 87040; 87086; 93005; 96361; 96365; 96375; 96376; A4353; G0378; J1885; J2185; J2270; J2405; J3475

== ENCOUNTER 2018-08-02 12:36 | Observation (INO) | payer SELFPAY ==
[2018-08-02 13:13] LABS: #Basophils 0.1 thou/uL (0.0-0.2); #Eosinphils 0.3 thou/uL (0.0-0.7); #Lymphocytes 1.4 thou/uL (1.20-3.40); #Monocytes 0.9 thou/uL (0.11-0.59); #Neutrophils 8.8 thou/uL (1.40-6.50); %Basophils 0.6 % (0.0-1.0); %Eosinophils 2.5 % (0.0-10.0); %Lymphocytes 12.1 % (21.0-51.0); %Monocytes 7.9 % (0.0-10.0); %Neutrophils 76.9 % (42.0-75.0); Hemoglobin 8.7 g/dL (12.0-16.0); Mean Corpuscular HGB CONC 32.4 g/dL (32.0-36.0); Mean Corpuscular Hemoglobin 33.1 pg (27.0-31.0); Mean Platelet Volume 8.3 fL (7.4-10.4); Platelet Count 198 thou/uL (130-400); RBC Distribution Width 16.6 % (11.5-14.5); Red Blood Cell (RBC) Count 2.63 mill/uL (4.20-5.40); White Blood Cell (WBC) Count 11.5 thou/uL (4.8-10.8)
--- NOTE | 2018-08-02 13:19 | RAD ---
PORTABLE CHEST 1 VIEW: Date: 08/02/18 Time: 1257 hours HISTORY: Liver failure, hypotension, altered mental status. FINDINGS/IMPRESSION: Comparison made with exam of 07/30/18. There is continued elevation of the right hemidiaphragm. The heart size is normal. No lobar consolida tion, pneumothoraces, or large effusions are seen. Mild atelectatic changes at the lung bases are red emonstrated. POS: TPC
[2018-08-02 13:38] LABS: ALT (SGPT) 18 U/L (8-55); AST (SGOT) 59 U/L (5-34); Albumin 2.3 g/dL (3.5-5.0); Alkaline Phosphatase 133 U/L (40-150); Anion Gap 13 mmol/L (10-20); BUN (Urea Nitrogen) 12 mg/dL (9.8-20.1); Bilirubin, Total 9.2 mg/dL (0.2-1.2); Calc. Creatinine Clearance 0 mL/min (70-130); Calcium 8.6 mg/dL (7.8-10.44); Carbon Dioxide 20 mmol/L (22-29); Chloride 105 mmol/L (98-107); Estimated GFR-MDRD 23; Globulin 4.5 g/dL (2.4-3.5); Glucose 90 mg/dL (70-105); Potassium 3.9 mmol/L (3.5-5.1); Protein, Total 6.8 g/dL (6.0-8.3); Sodium 134 mmol/L (136-145)
[2018-08-02] MEDS ORDERED: Fentanyl 100 MCG/2 ML VIAL ONE (13:39)
[2018-08-02] MEDS ORDERED: Ondansetron PF 4 MG/2 ML Vial ONE (13:41)
[2018-08-02] MEDS ORDERED: Piperacillin/Tazobactam 4.5 GM VIAL ONE (13:42)
[2018-08-02 14:48] LABS: Fluid, Glucose 98 mg/dL (Not Available); Fluid, LDH 31 U/L (Not Available); Fluid, Protein Less than 1.0 g/dL (Not Available)
[2018-08-02] MEDS ORDERED: hydrALAZINE 20 MG/ML VIAL SLOW IVP PRN (15:40)
[2018-08-02] MEDS ORDERED: Benzonatate 100 MG CAP PO PRN (15:40)
[2018-08-02] MEDS ORDERED: Diabetic Tussin 200 MG/10 ML UDCUP PO PRN (15:40)
[2018-08-02] MEDS ORDERED: cloNIDine 0.1 MG TAB PO PRN (15:40)
[2018-08-02] MEDS ORDERED: Sodium Chloride 0.65% Nasal 44 ML BOT EA NARE PRN (15:40)
[2018-08-02] MEDS ORDERED: Nitroglycerin 0.4 MG TAB (25 Tab Bottle) SL PRN (15:40)
[2018-08-02] MEDS ORDERED: Bisacodyl 5 MG TAB PO PRN (15:40)
[2018-08-02] MEDS ORDERED: Ondansetron PF 4 MG/2 ML Vial IVP PRN (15:40)
[2018-08-02] MEDS ORDERED: Senokot S 8.6-50 MG TAB PO PRN (15:40)
[2018-08-02] MEDS ORDERED: Morphine 4 MG/ML VIAL SLOW IVP PRN (15:41)
[2018-08-02 15:49] LABS: Body Fluid Source Peritoneal Fluid; Tube # 1
[2018-08-02 15:50] LABS: BF Color Yellow; BF RBC Count - Manual 131 /cumm; BF WBC/Nonhematics Ct. - Manua 10 /cumm; Clarity Hazy (Clear)
[2018-08-02 15:51] LABS: BF Segmented Neutrophils 5 %; Cell Count Non Hematic 60 %; Lymphocytes 35 %
--- NOTE | 2018-08-02 17:32 | HP ---
PRIMARY CARE PHYSICIAN: None. CHIEF COMPLAINT: Worsening low blood pressure and abdominal pain. HISTORY OF PRESENTING ILLNESS: Ms. Green is a 58-year-old female with multiple hospitalizations with history of end-stage alcoholic cirrhosis, hypertension, dyslipidemia, peripheral vascular disease, hypothyroidism, who presented once again to the emergency room with above-mentioned complaint. History is mainly obtained by the patient herself and discussed with her home account liaison hospice, Ms. Cantrell. The case has been discussed with admitting ER physician, Dr. Cantu. The patient was just discharged from our hospital 2 days ago on 07/31/2018. At that time, she underwent a therapeutic paracentesis by Interventional Radiology. About 3700 mL of peritoneal fluid was removed without any difficulty. She was discharged home. There has been talks about setting her up with hospice. The patient has been having worsening liver failure due to alcoholic cirrhosis requiring repeated hospitalizations for various reasons. She has been hospitalized 4 times already this month. It was found out in the ER that hospice has been set up almost for her. She has agreed to be placed in a fci as there is no family to take care of her at home. She is being admitted for a final set up and because she is critically and terminally ill and cannot take care of herself alone at home. In the emergency room, diagnostics, paracentesis was again done by Dr. Cantu. It showed 10 WBCs and the differential showed 5% neutrophils. She was rather hypotensive in ER with blood pressure ranging anywhere from 100 to 80 systolic. Please note that the patient was restarted on her Aldactone at the time of her discharge from the hospital 2 days ago. At this time, the plan is to admit under observation status on medical floor. She has [id number] DNR in chart. She will be admitted for placement to fci with hospice. However, given the patient's critical and likely terminal condition that is not unexpected at this hospitalization. We will consult palliative care team to follow along. The patient endorses generalized weakness, dizziness, lightheadedness, abdominal distention and abdominal pain along with nausea, poor appetite, and anorexia. PAST MEDICAL HISTORY: Remain the same as the H and P dictated by Cuate Luz Velazco on 07/30/2018. Please refer to her detailed H and P. PAST SURGICAL HISTORY: Remain the same as the H and P dictated by Cuate Luz Velazco on 07/30/2018. Please refer to her detailed H and P. SOCIAL HISTORY: Remain the same as the H and P dictated by Ms. Luz Velazco on 07/30/2018. Please refer to her detailed H and P. FAMILY HISTORY: Remain the same as the H and P dictated by Ms. Luz Velazco on 07/30/2018. Please refer to her detailed H and P. MEDICATIONS: Remain the same as the H and P dictated by Ms. Luz Velazco on 07/30/2018. Please refer to her detailed H and P. ALLERGIES: REMAIN THE SAME THE H AND P DICTATED BY MS. LUZ VELAZCO ON 07/30/2018. PLEASE REFER TO HER DETAILED H AND P. REVIEW OF SYSTEMS: A 14-point review of systems is done and is negative except for those mentioned in the history and physical. LABORATORY DATA: Her CBC shows hemoglobin 8.7, WBCs 11.5, platelet count of 198. Serum chemistry shows sodium 134, creatinine 2.22, total bilirubin 9.2. Troponin within normal limit. Ammonia 29. Lactic acid 1.2. PHYSICAL EXAMINATION: VITAL SIGNS: Upon presentation, blood pressure 90/54, pulse 87, respirations 18, saturating 100% on room air. GENERAL: She appears chronically ill, but is awake, alert, and oriented x3. She is lying comfortably on her side on the bed. HEENT: Mucous membrane is slightly dry. No oropharyngeal exudate or erythema. Head is normocephalic and atraumatic. Pupils are equal and reactive to light and accommodation. Extraocular movement intact. NECK: Supple without any lymphadenopathy, JVD, or bruit. CHEST: Clear to auscultation without any wheezing, rales, or rhonchi. Rate and rhythm are regular without any murmurs, rubs, or gallops. ABDOMEN: Distended without any significant fluid wave. No rebound, rigidity, or guarding. EXTREMITIES: Free of any cyanosis, clubbing, or edema. NEUROLOGICAL: Nonfocal. SKIN: Jaundiced. IMPRESSION AND PLAN: End-stage liver disease with cirrhosis due to chronic alcoholism. The patient is terminal. She will be admitted for placement to fci with hospice, but there is a high chance that the patient will pass away during this hospitalization. We will consult Case Management, Palliative Care and Hospice Team to follow along. The patient will be DNR in the hospital. I have discussed the case with Dr. Terrazas from General Surgery, and we will request a PleurX catheter placement for palliation for a hospice placement. If the patient survives this hospitalization, we will go ahead and proceed with a PleurX catheter. Otherwise, main therapy at this time is largely supportive care. Hold the home medications for now, and we will treat her with pain medications and lactulose for now. She was given antibiotic in the emergency room, but there is no clear indication for antibiotic at this time. The patient is on hospice. We will stop the antibiotics. DISPOSITION: Ms. Green is now being admitted for placement to fci with hospice. That is not unexpected during this hospitalization, if her blood pressure does not improve. Continue symptomatic and supportive care. Job ID: [id number]
[2018-08-02] MEDS ORDERED: Piperacillin/Tazobactam 3.375 GM in Sodium Chloride 0.9% 100 ML IVPB SCH (18:00)
[2018-08-02] MEDS: Sodium Chloride 0.9% 1,000 ML IV SCH (20:59)
--- NOTE | 2018-08-02 22:00 | CON ---
DATE OF CONSULTATION: HISTORY OF PRESENT ILLNESS: Monse Green is a 58-year-old female, alcohol free for 30 day she reports but has end-stage liver disease secondary to alcoholism. Hepatitis serology is negative in September 2016. She has required paracentesis every 2 to 3 days. She presents after paracentesis with abdominal pain. I have been asked by Dr. Perkins to see her regarding placement of a peritoneal dialysis catheter. Hospice nurses have talked to her about that as part of her palliative care. She does smoke a pack a day. MEDICATIONS: At home include, 1. Librium. 2. Aldactone. 3. Nitrofurantoin. 4. Magnesium oxide. 5. Levothyroxine. PAST SURGICAL HISTORY: Hernia repair of some sort, she cannot remember exactly where. Upper endoscopy, colonoscopy, and multiple paracentesis. PAST MEDICAL HISTORY: She has cholelithiasis, alcoholic cirrhosis with ascites, end-stage liver disease, hypertension, hyperlipidemia, and chronic anemia. She is admitted. She is a DNR status. PHYSICAL EXAMINATION: VITAL SIGNS: In the emergency room, her systolic was in the 70s, it has improved. Temperature 98.1, pulse 88, and blood pressure 101/64. LUNGS: Clear to auscultation. CARDIAC: Regular rate and rhythm without murmur or gallop. ABDOMEN: Soft. Positive fluid weight. Small umbilical hernia quadrant from recent paracentesis. LABORATORY DATA AND DIAGNOSTIC STUDIES: Coagulation studies, 07/30/2018, PT 20, INR 1.8. White count 11, hemoglobin 8.7, platelet count . Sodium 134, potassium 3.9, BUN 12, creatinine 2.2. Creatinine has been mostly normal, but is slightly elevated today, reflecting dehydration. Bilirubin 9.2, has been high as 11.7 recently. Transaminases slightly elevated. AST 59, ALT normal at 18. ASSESSMENT AND PLAN: End-stage liver disease, cirrhosis. Would agree with PleurX catheter placed laparoscopically. Risks of infection, bleeding, and reoperation discussed. She consents. Job ID: [id number]
[2018-08-03 07:24] LABS: #Basophils 0.1 thou/uL (0.0-0.2); #Eosinphils 0.5 thou/uL (0.0-0.7); #Monocytes 1.3 thou/uL (0.11-0.59); #Neutrophils 8.3 thou/uL (1.40-6.50); %Basophils 0.6 % (0.0-1.0); %Eosinophils 3.9 % (0.0-10.0); %Lymphocytes 16.3 % (21.0-51.0); %Monocytes 10.6 % (0.0-10.0); %Neutrophils 68.6 % (42.0-75.0); Hemoglobin 8.1 g/dL (12.0-16.0); Mean Corpuscular HGB CONC 32.1 g/dL (32.0-36.0); Mean Corpuscular Hemoglobin 33.2 pg (27.0-31.0); Mean Platelet Volume 8.5 fL (7.4-10.4); Platelet Count 170 thou/uL (130-400); RBC Distribution Width 16.6 % (11.5-14.5); Red Blood Cell (RBC) Count 2.44 mill/uL (4.20-5.40); White Blood Cell (WBC) Count 12.1 thou/uL (4.8-10.8)
[2018-08-03 07:49] LABS: Anion Gap 12 mmol/L (10-20); BUN (Urea Nitrogen) 14 mg/dL (9.8-20.1); Calc. Creatinine Clearance 31 mL/min (70-130); Calcium 8.2 mg/dL (7.8-10.44); Carbon Dioxide 19 mmol/L (22-29); Chloride 108 mmol/L (98-107); Estimated GFR-MDRD 22; Glucose 99 mg/dL (70-105); Potassium 3.5 mmol/L (3.5-5.1); Sodium 135 mmol/L (136-145)
--- NOTE | 2018-08-03 10:16 | PDOC.PN ---
- Subjective Encounter Start Date: 08/03/18 Encounter Start Time: 10:14 Subjective: feels a littl ebetter but on and off abd pain -: no N/V/D - Objective Resuscitation Status - Order Detail: 08/02/18 16:48 Resuscitation Status Routine Resuscitation Status: DNAR: NO Resuscitation Discussed with: discussed with pt CIARAN Reviewed: Yes Vital Signs & Weight: Vital Signs (12 hours) Temp Pulse Resp BP BP Pulse Ox 08/03/18 08:00 98.1 F 74 16 80/41 L 96 08/03/18 04:00 98.1 F 71 14 94/56 L 99 08/03/18 00:00 98.3 F 78 16 93/53 L 91 L Weight Weight 159 lb 4.8 oz I&O: 08/02/18 08/03/18 08/04/18 06:59 06:59 06:59 Intake Total 566 Balance 566 Result Diagrams: 08/03/18 07:03 08/03/18 07:03 Additional Labs: Accuchecks 08/02/18 12:41 POC Glucose 89 Microbiology 07/30/18 06:51 Venous blood - Right Arm Blood Culture - Preliminary Specimen has been received and culture in progress. No Growth to date. 07/30/18 06:16 Venous blood - Right Arm Blood Culture - Preliminary Specimen has been received and culture in progress. No Growth to date. Laboratory Tests 07/22/18 07/24/18 07/24/18 10:31 11:11 11:11 WBC Hgb 9.9 L Total Bilirubin 11.7 H 12.5 H 07/25/18 07/30/18 07/30/18 04:34 04:20 05:24 WBC 12.6 H 13.5 H Hgb 8.4 L 8.9 L Total Bilirubin 10.1 H Phys Exam - Physical Examination Constitutional: NAD jaundiced HEENT: PERRLA, moist MMs icterus+ Neck: no nodes, no JVD, supple, full ROM Respiratory: no wheezing, no rales, no rhonchi, clear to auscultation bilateral Cardiovascular: RRR, no significant murmur Gastrointestinal: soft, positive bowel sounds Mild TTP LLQ.+fluid wave Musculoskeletal: no edema, pulses present Neurological: non-focal, normal sensation, moves all 4 limbs Psychiatric: normal affect, A&O x 3 Skin: no rash Deviation from normal: jaundiced Dx/Plan (1) Hypotension Status: Acute Comment: better. due to ESLD.on gentle IVF (2) Ascites Code(s): R18.8 - OTHER ASCITES Status: Chronic Qualifiers: Ascites type: due to alcoholic cirrhosis Qualified Code(s): K70.31 - Alcoholic cirrhosis of liver with ascites Comment: PleurX Cathter for palliation today if BP stable (3) End stage liver disease Code(s): K72.90 - HEPATIC FAILURE, UNSPECIFIED WITHOUT COMA Status: Chronic Comment: terminal.Intolerant to diuretics due to hypotension (4) Cirrhosis, alcoholic Code(s): K70.30 - ALCOHOLIC CIRRHOSIS OF LIVER WITHOUT ASCITES Status: Chronic Qualifiers: Ascites presence: with ascites Qualified Code(s): K70.31 - Alcoholic cirrhosis of liver with ascites (5) CKD (chronic kidney disease), stage III Code(s): N18.3 - CHRONIC KIDNEY DISEASE, STAGE 3 (MODERATE) Status: Chronic Comment: stable. (6) Hypothyroidism Code(s): E03.9 - HYPOTHYROIDISM, UNSPECIFIED Status: Chronic Comment: stable (7) Hyperbilirubinemia Code(s): E80.6 - OTHER DISORDERS OF BILIRUBIN METABOLISM Status: Acute (8) Hyperbilirubinemia Code(s): E80.6 - OTHER DISORDERS OF BILIRUBIN METABOLISM Status: Chronic Comment: Secondary to ESLD - Plan DVT proph w/SCDs Palliative care. apprecite PCT,CM,Hospice input -: Pt terminal and would likely succumb in few months -: plans for palliative PleurX cathtrer for ascites then transfer to [place] w -: Hospice for placement/cont IVF for now.BP better but still low -: Monitor.very poor prognosi-poor understanding on pt's part * . Review of Systems - Review of Systems Constitutional: weakness, malaise. negative: fever, chills, sweats, other Respiratory: negative: Cough, Dry, Shortness of Breath, Hemoptysis, SOB with Excertion, Pleuritic Pain, Sputum, Wheezing Cardiovascular: negative: chest pain, palpitations, orthopnea, paroxysmal nocturnal dyspnea, edema, light headedness, other Gastrointestinal: Abdominal Pain. negative: Nausea, Vomiting, Diarrhea, Constipation, Melena, Hematochezia, Other Genitourinary: negative: Dysuria, Frequency, Incontinence, Hematuria, Retention , Other Musculoskeletal: negative: Neck Pain, Shoulder Pain, Arm Pain, Back Pain, Hand Pain, Leg Pain, Foot Pain, Other Skin: negative: Rash, Lesions, Roger, Bruising, Other Neurological: negative: Weakness, Numbness, Incoordination, Change in Speech, Confusion, Seizures, Other - Medications/Allergies Allergies/Adverse Reactions: Allergies Allergy/AdvReac Type Severity Reaction Status Date / Time acetaminophen [From Tylenol] Allergy liver Verified 08/02/18 17:03 disease ceftriaxone sodium Allergy breathing Verified 08/02/18 17:03 [From Rocephin] problems levothyroxine sodium Allergy SWELLING Verified 08/02/18 17:03 moxifloxacin HCl Allergy swelling, Verified 08/02/18 17:03 [From Avelox] welps, face turns red nicotine Allergy tachycardia, Verified 08/02/18 17:03 swelling Quinolones Allergy swelling, Verified 08/02/18 17:03 welps sulfamethoxazole Allergy swelling, Verified 08/02/18 17:03 [From Bactrim] welps trimethoprim [From Bactrim] Allergy swelling, Verified 08/02/18 17:03 welps Medications: Current Medications Benzonatate (Tessalon) 100 mg PO Q6H PRN PRN Reason: Cough Bisacodyl (Dulcolax) 10 mg PO DAILYPRN PRN PRN Reason: Constipation Calcium Carbonate (Tums) 1,000 mg PO Q4H PRN PRN Reason: Heartburn or Indigestion Clonidine (Catapres) 0.1 mg PO Q4H PRN PRN Reason: SBP > 160____ Guaifenesin (Robitussin Sf) 200 mg PO Q4H PRN PRN Reason: Cough Hydralazine HCl (Apresoline) 10 mg SLOW IVP Q4H PRN PRN Reason: SBP > 180 and HR < 70 Sodium Chloride (Normal Saline 0.9%) 1,000 mls @ 50 mls/hr IV .Q20H EDUARDO Last Admin: 08/02/18 20:59 Dose: 1,000 mls Levofloxacin 500 mg/ Device 100 mls @ 100 mls/hr IVPB ONCALL-OR EDUARDO Morphine Sulfate (Morphine) 2 mg SLOW IVP Q4H PRN PRN Reason: severe pain Nitroglycerin (Nitrostat) 0.4 mg SL Q5MIN PRN PRN Reason: Chest Pain Ondansetron HCl (Zofran) 4 mg IVP Q6H PRN PRN Reason: Nausea/Vomiting Senna/Docusate Sodium (Senokot S) 2 tab PO BID PRN PRN Reason: Constipation Sodium Chloride ([place] Nasal [place] 0.65%) 0 ml EA NARE QIDPRN PRN PRN Reason: Nasal Congestion
[2018-08-03] MEDS ORDERED: Fentanyl 100 MCG/2 ML VIAL ONE ×2 (13:04→14:35)
[2018-08-03] MEDS ORDERED: Bupivacaine HCl 0.5%/Epinephrine 1:200,000/PF 30 ml Vial ONE (13:04)
[2018-08-03] MEDS ORDERED: SUGAMMADEX SODIUM 200 MG/2 ML VIAL ONE (13:55)
[2018-08-03] MEDS ORDERED: Promethazine HCl 25 MG/ML VIAL SLOW IVP PRN (14:10)
[2018-08-03] MEDS ORDERED: Promethazine HCl 25 MG/ML VIAL IM PRN (14:10)
[2018-08-03] MEDS ORDERED: Ondansetron HCl/PF 4 MG/2 ML Vial IVP PRN (14:10)
[2018-08-03] MEDS ORDERED: HYDROmorphone 2 MG/ML VIAL SLOW IVP PRN (14:10)
[2018-08-03] MEDS ORDERED: PACU-Morphine 4MG/ML VIAL SLOW IVP PRN (14:10)
[2018-08-03] MEDS ORDERED: Lidocaine 1% PF 5 ML VIAL ONE (14:59)
[2018-08-03] MEDS ORDERED: Rocuronium Bromide 10 MG/ML (10ML VIAL) ONE (14:59)
[2018-08-03] MEDS ORDERED: PROPOFOL 200 MG/20 ML VIAL ONE (14:59)
[2018-08-03] MEDS ORDERED: Esmolol 100 MG/10 ML VIAL ONE (14:59)
[2018-08-03] MEDS: Morphine 2 MG/ML SYRINGE SLOW IVP PRN ×2 (16:21→20:16)
[2018-08-03] MEDS: Sodium Chloride 0.9% 1,000 ML IV SCH ×2 (16:21→20:19)
--- NOTE | 2018-08-03 21:01 | OP ---
DATE OF PROCEDURE: 08/03/2018 PREOPERATIVE DIAGNOSES: End-stage hepatic disease secondary to alcohol cirrhosis with uncontrollable ascites going on hospice. POSTOPERATIVE DIAGNOSES: End-stage hepatic disease secondary to alcohol cirrhosis with uncontrollable ascites going on hospice. PROCEDURE PERFORMED: Laparoscopic PleurX peritoneal catheter for palliative control of ascites during the hospital stay, laparoscopic omentopexy and make a notation that 3.5 L evacuated of clear yellowish ascites. ANESTHESIA: General, local 0.5% Marcaine with epinephrine. DESCRIPTION OF PROCEDURE: The patient was taken to the operating room where under general anesthesia, abdomen was prepared with ChloraPrep and draped in routine fashion. Local anesthetic was infiltrated into the skin and subcutaneous tissue about the operative site. Bilateral far lateral subcostal incision was made. Pneumoperitoneum to 15 mmHg was obtained with a Veress needle, replaced with a 5 port, video laparoscope was inserted. Contralateral port 5 mm port was placed under laparoscopic visualization. Stab incision was made in the left lower quadrant laterally and dilator and Peel-Away sheath placed through the skin into the subcutaneous tissue, directed medially, then inferiorly into the pelvis after tunneling in the rectus sheath. PleurX catheter was introduced after removing the dilator, placed the cuff beneath the skin exit site, Peel-Away sheath was removed. Ascites had been evacuated 3.5 L. Omentopexy performed with transabdominal wall fixation 0 Vicryl suture using a GraNee needle. Once this was completed, pneumoperitoneum reduced. All instruments were removed and all skin incisions were approximated with interrupted subdermal 4-0 Monocryl and sterile dressings were applied. Job ID: [id number]
[2018-08-04] MEDS: Morphine 2 MG/ML SYRINGE SLOW IVP PRN ×5 (00:32→18:31)
[2018-08-04] MEDS: Sodium Chloride 0.9% 1,000 ML IV SCH (13:19)
--- NOTE | 2018-08-04 13:35 | PDOC.PN ---
- Subjective Encounter Start Date: 08/04/18 Encounter Start Time: 13:34 Patient seen and examined, no new issues or complaints. - Objective Resuscitation Status - Order Detail: 08/02/18 16:48 Resuscitation Status Routine Resuscitation Status: DNAR: NO Resuscitation Discussed with: discussed with pt Vital Signs & Weight: Vital Signs (12 hours) Temp Pulse Resp BP BP BP Pulse Ox 08/04/18 11:00 97.4 F L 93 18 113/66 99 08/04/18 08:00 97.7 F 81 20 101/63 96 08/04/18 07:29 97.7 F 81 20 101/63 96 08/04/18 05:45 91/50 L 08/04/18 05:00 98.1 F 82 16 85/50 L 94 L Weight Weight 159 lb 4.8 oz I&O: 08/03/18 08/04/18 08/05/18 06:59 06:59 06:59 Intake Total 566 626 Balance 566 626 Result Diagrams: 08/03/18 07:03 08/03/18 07:03 Phys Exam - Physical Examination mild discomfort HEENT: PERRLA, moist MMs, sclera anicteric Neck: no nodes, no JVD, supple Respiratory: no wheezing, no rales, no rhonchi Cardiovascular: RRR, no significant murmur, no rub Gastrointestinal: soft, positive bowel sounds +fluid wave Musculoskeletal: pulses present, edema present Dx/Plan (1) Ascites Code(s): R18.8 - OTHER ASCITES Status: Chronic Qualifiers: Ascites type: due to alcoholic cirrhosis Qualified Code(s): K70.31 - Alcoholic cirrhosis of liver with ascites Comment: PleurX Cathter for palliation today if BP stable (2) Cirrhosis, alcoholic Code(s): K70.30 - ALCOHOLIC CIRRHOSIS OF LIVER WITHOUT ASCITES Status: Chronic Qualifiers: Ascites presence: with ascites Qualified Code(s): K70.31 - Alcoholic cirrhosis of liver with ascites (3) End stage liver disease Code(s): K72.90 - HEPATIC FAILURE, UNSPECIFIED WITHOUT COMA Status: Chronic Comment: terminal.Intolerant to diuretics due to hypotension (4) Epigastric abdominal pain Code(s): R10.13 - EPIGASTRIC PAIN Status: Acute (5) HTN (hypertension) Code(s): I10 - ESSENTIAL (PRIMARY) HYPERTENSION Status: Acute - Plan * s/p abd drain placement * hospice arrangements pending * DC plans once hospice arranged * overall prognosis is very poor * no family at bedside
--- NOTE | 2018-08-04 13:56 | PRG ---
DATE OF SERVICE: 08/04/2018 Monse Green is doing well today. Her abdomen is soft and nontender. In her lower abdomen, she has some thickened skin, chronic inflammatory changes in her pannus that is chronic that was there prior to her surgery. Her peritoneal catheter has some clear fluid draining around the catheter, so sliding the dressing around the peritoneal catheter and has been changed sterilely. This dressing can be changed sterilely daily or more often as needed. I have asked the nurses to hook her peritoneal catheter to the VAC container bottles daily to keep her abdomen cavity decompressed to resolve drainage around her catheter. Yesterday in the operating room, I drained 3.7 L. They may need to drain this every day and drain as much as 1 to 3 L a day as necessary to keep this decompressed and minimize drainage around the catheter. She will need to have her suture removed from around her catheter in 2 to 3 weeks and thus giving ingrowth to the fabric cuff. Dr. Allan is covering for the next 5 days. Please call her if necessary. She will see Ms. Green as needed. She can follow up in my office as necessary in the next 2 to 3 weeks or home health nurses can remove the suture after 2 weeks. Job ID: [id number]
[2018-08-04] MEDS ORDERED: Fentanyl 100 MCG/2 ML VIAL SLOW IVP PRN (15:30)
[2018-08-04] MEDS: Midodrine HCl 5 MG TAB PO SCH ×2 (15:52→21:02)
[2018-08-04] MEDS: Calcium Carbonate 500 MG ChewTAB PO PRN (17:14)
[2018-08-05] MEDS: Morphine 2 MG/ML SYRINGE SLOW IVP PRN ×5 (00:34→20:45)
[2018-08-05] MEDS: Midodrine HCl 5 MG TAB PO SCH ×3 (09:00→20:11)
--- NOTE | 2018-08-05 11:03 | PDOC.PN ---
- Subjective Encounter Start Date: 08/05/18 Encounter Start Time: 11:02 Patient seen and examined, no new issues or complaints. All questions answered. - Objective Resuscitation Status - Order Detail: 08/02/18 16:48 Resuscitation Status Routine Resuscitation Status: DNAR: NO Resuscitation Discussed with: discussed with pt Vital Signs & Weight: Vital Signs (12 hours) Temp Pulse Resp BP BP BP Pulse Ox 08/05/18 08:00 98.2 F 75 16 80/48 L 100 08/05/18 07:53 98.2 F 75 16 80/48 L 100 08/05/18 05:06 98.1 F 84 12 98/60 97 08/05/18 04:20 98.1 F 84 12 98/60 99 08/05/18 00:34 98.2 F 84 12 104/62 95 08/04/18 23:30 98.2 F 84 12 103/58 L 95 08/04/18 23:29 98.2 F 84 12 103/58 L 95 Weight Weight 159 lb 4.8 oz I&O: 08/04/18 08/05/18 08/06/18 06:59 06:59 06:59 Intake Total 626 1560 Output Total 320 Balance 626 1240 Result Diagrams: 08/03/18 07:03 08/03/18 07:03 Phys Exam - Physical Examination Constitutional: NAD HEENT: PERRLA, moist MMs, sclera anicteric Neck: no nodes, no JVD, supple Respiratory: no wheezing, no rales, no rhonchi Cardiovascular: RRR, no rub systolic murmur Gastrointestinal: soft, non-tender, no distention Musculoskeletal: no edema, pulses present Dx/Plan (1) Ascites Code(s): R18.8 - OTHER ASCITES Status: Chronic Qualifiers: Ascites type: due to alcoholic cirrhosis Qualified Code(s): K70.31 - Alcoholic cirrhosis of liver with ascites Comment: PleurX Cathter for palliation today if BP stable (2) Cirrhosis, alcoholic Code(s): K70.30 - ALCOHOLIC CIRRHOSIS OF LIVER WITHOUT ASCITES Status: Chronic Qualifiers: Ascites presence: with ascites Qualified Code(s): K70.31 - Alcoholic cirrhosis of liver with ascites (3) End stage liver disease Code(s): K72.90 - HEPATIC FAILURE, UNSPECIFIED WITHOUT COMA Status: Chronic Comment: terminal.Intolerant to diuretics due to hypotension (4) Epigastric abdominal pain Code(s): R10.13 - EPIGASTRIC PAIN Status: Acute (5) HTN (hypertension) Code(s): I10 - ESSENTIAL (PRIMARY) HYPERTENSION Status: Acute - Plan * pending placement * hospice arrangements being made * continue with comfort care for now * case and plan d/w patient at [facility], she understood and agreed with this plan
[2018-08-06] MEDS: Morphine 2 MG/ML SYRINGE SLOW IVP PRN ×4 (01:26→18:34)
[2018-08-06] MEDS: Midodrine HCl 5 MG TAB PO SCH ×3 (07:59→20:17)
--- NOTE | 2018-08-06 11:27 | PDOC.PN ---
- Subjective Encounter Start Date: 08/06/18 Encounter Start Time: 11:26 Patient seen and examined, no new issues or complaints, all questions answered. - Objective Resuscitation Status - Order Detail: 08/02/18 16:48 Resuscitation Status Routine Resuscitation Status: DNAR: NO Resuscitation Discussed with: discussed with pt Vital Signs & Weight: Vital Signs (12 hours) Temp Pulse Resp BP BP Pulse Ox 08/06/18 07:54 98.3 F 83 16 99/62 100 08/06/18 05:08 98.2 F 81 18 99/55 L 100 08/06/18 00:00 98.2 F 76 18 94/53 L 98 Weight Weight 159 lb 4.8 oz I&O: 08/05/18 08/06/18 08/07/18 06:59 06:59 06:59 Intake Total 1560 1690 Output Total 320 710 Balance 1240 980 Result Diagrams: 08/03/18 07:03 08/03/18 07:03 Phys Exam - Physical Examination Constitutional: NAD HEENT: PERRLA, moist MMs, sclera anicteric Neck: no nodes, no JVD, supple Respiratory: no wheezing, no rales, no rhonchi Cardiovascular: RRR, no significant murmur, no rub Gastrointestinal: soft, non-tender, no distention, positive bowel sounds Musculoskeletal: pulses present, edema present (trace) Dx/Plan (1) Ascites Code(s): R18.8 - OTHER ASCITES Status: Chronic Qualifiers: Ascites type: due to alcoholic cirrhosis Qualified Code(s): K70.31 - Alcoholic cirrhosis of liver with ascites Comment: PleurX Cathter for palliation today if BP stable (2) Cirrhosis, alcoholic Code(s): K70.30 - ALCOHOLIC CIRRHOSIS OF LIVER WITHOUT ASCITES Status: Chronic Qualifiers: Ascites presence: with ascites Qualified Code(s): K70.31 - Alcoholic cirrhosis of liver with ascites (3) End stage liver disease Code(s): K72.90 - HEPATIC FAILURE, UNSPECIFIED WITHOUT COMA Status: Chronic Comment: terminal.Intolerant to diuretics due to hypotension (4) Epigastric abdominal pain Code(s): R10.13 - EPIGASTRIC PAIN Status: Acute (5) HTN (hypertension) Code(s): I10 - ESSENTIAL (PRIMARY) HYPERTENSION Status: Acute - Plan * pending hospice placement * DC once arranged * cont supportive care for now * case and plan d/w patient at length, she understood and agreed with this plan.
[2018-08-07] MEDS: Morphine 2 MG/ML SYRINGE SLOW IVP PRN ×3 (04:41→21:46)
[2018-08-07] MEDS: Midodrine HCl 5 MG TAB PO SCH ×3 (08:48→20:00)
--- NOTE | 2018-08-07 11:07 | PDOC.PN ---
- Subjective Encounter Start Date: 08/07/18 Encounter Start Time: 11:05 Patient seen and examined, no new issues. - Objective Resuscitation Status - Order Detail: 08/02/18 16:48 Resuscitation Status Routine Resuscitation Status: DNAR: NO Resuscitation Discussed with: discussed with pt Vital Signs & Weight: Vital Signs (12 hours) Temp Pulse Resp BP BP BP Pulse Ox 08/07/18 08:00 97.5 F L 76 14 97/56 L 100 08/07/18 07:32 97.5 F L 76 14 97/56 L 100 08/07/18 04:40 92/56 L 08/07/18 04:13 98.4 F 69 18 92/44 L 96 Weight Weight 159 lb 4.8 oz I&O: 08/06/18 08/07/18 08/08/18 06:59 06:59 06:59 Intake Total 1690 705 Output Total 710 850 Balance 980 -145 Result Diagrams: 08/03/18 07:03 08/03/18 07:03 Phys Exam - Physical Examination Constitutional: NAD HEENT: PERRLA, moist MMs Neck: no nodes, no JVD, supple Respiratory: no wheezing, no rales, no rhonchi Cardiovascular: RRR, no significant murmur, no rub Gastrointestinal: soft, non-tender, positive bowel sounds +drain Musculoskeletal: pulses present, edema present Dx/Plan (1) Ascites Code(s): R18.8 - OTHER ASCITES Status: Chronic Qualifiers: Ascites type: due to alcoholic cirrhosis Qualified Code(s): K70.31 - Alcoholic cirrhosis of liver with ascites Comment: PleurX Cathter for palliation today if BP stable (2) Cirrhosis, alcoholic Code(s): K70.30 - ALCOHOLIC CIRRHOSIS OF LIVER WITHOUT ASCITES Status: Chronic Qualifiers: Ascites presence: with ascites Qualified Code(s): K70.31 - Alcoholic cirrhosis of liver with ascites (3) End stage liver disease Code(s): K72.90 - HEPATIC FAILURE, UNSPECIFIED WITHOUT COMA Status: Chronic Comment: terminal.Intolerant to diuretics due to hypotension (4) Epigastric abdominal pain Code(s): R10.13 - EPIGASTRIC PAIN Status: Acute (5) HTN (hypertension) Code(s): I10 - ESSENTIAL (PRIMARY) HYPERTENSION Status: Acute - Plan * pending placement * poor overall prognosis * DC once placement arranged
[2018-08-08] MEDS: Midodrine HCl 5 MG TAB PO SCH ×3 (08:37→20:24)
[2018-08-08] MEDS: Morphine 2 MG/ML SYRINGE SLOW IVP PRN ×3 (09:57→20:45)
--- NOTE | 2018-08-08 15:57 | PDOC.PN ---
- Subjective Encounter Start Date: 08/08/18 Encounter Start Time: 10:30 Subjective: pt up in bed complains of pain to her right lower abdomen area - Objective Resuscitation Status - Order Detail: 08/02/18 16:48 Resuscitation Status Routine Resuscitation Status: DNAR: NO Resuscitation Discussed with: discussed with pt Vital Signs & Weight: Vital Signs (12 hours) Temp Pulse Resp BP BP Pulse Ox 08/08/18 11:25 98.2 F 82 18 83/48 L 98 08/08/18 08:00 98.3 F 75 16 93/53 L 100 08/08/18 07:37 98.3 F 75 16 93/53 L 100 Weight Weight 159 lb 4.8 oz I&O: 08/07/18 08/08/18 08/09/18 06:59 06:59 06:59 Intake Total 705 871 Output Total 850 700 Balance -145 171 Result Diagrams: 08/03/18 07:03 08/03/18 07:03 Phys Exam - Physical Examination Respiratory: no wheezing, no rales, no rhonchi, wheezing present, clear to auscultation bilateral Cardiovascular: RRR, no significant murmur, no rub, gallop, irregular Gastrointestinal: soft, positive bowel sounds plurex cath to left abdomen area Musculoskeletal: no edema, pulses present, edema present Neurological: non-focal, normal sensation, moves all 4 limbs Dx/Plan (1) Ascites Code(s): R18.8 - OTHER ASCITES Status: Chronic Qualifiers: Ascites type: due to alcoholic cirrhosis Qualified Code(s): K70.31 - Alcoholic cirrhosis of liver with ascites Comment: PleurX Cathter for palliation today if BP stable (2) Hyperbilirubinemia Code(s): E80.6 - OTHER DISORDERS OF BILIRUBIN METABOLISM Status: Acute (3) End stage liver disease Code(s): K72.90 - HEPATIC FAILURE, UNSPECIFIED WITHOUT COMA Status: Chronic Comment: terminal.Intolerant to diuretics due to hypotension (4) Acute alcohol intoxication with alcoholism Code(s): F10.229 - ALCOHOL DEPENDENCE WITH INTOXICATION, UNSPECIFIED Status: Acute - Plan spoke with pt's sister about her overall prognosis. -: pt to go [facility] hosp[facility]. will give her a few doses of albumin -: drain plurex as needed * . Review of Systems - Review of Systems Respiratory: negative: Cough, Dry, Shortness of Breath, Hemoptysis, SOB with Excertion, Pleuritic Pain, Sputum, Wheezing Cardiovascular: negative: chest pain, palpitations, orthopnea, paroxysmal nocturnal dyspnea, edema, light headedness, other Gastrointestinal: Abdominal Pain Genitourinary: negative: Dysuria, Frequency, Incontinence, Hematuria, Retention , Other - Medications/Allergies Allergies/Adverse Reactions: Allergies Allergy/AdvReac Type Severity Reaction Status Date / Time acetaminophen [From Tylenol] Allergy liver Verified 08/02/18 17:03 disease ceftriaxone sodium Allergy breathing Verified 08/02/18 17:03 [From Rocephin] problems levothyroxine sodium Allergy SWELLING Verified 08/02/18 17:03 moxifloxacin HCl Allergy swelling, Verified 08/02/18 17:03 [From Avelox] welps, face turns red nicotine Allergy tachycardia, Verified 08/02/18 17:03 swelling Quinolones Allergy swelling, Verified 08/02/18 17:03 welps sulfamethoxazole Allergy swelling, Verified 08/02/18 17:03 [From Bactrim] welps trimethoprim [From Bactrim] Allergy swelling, Verified 08/02/18 17:03 welps Medications: Current Medications Albumin Human (Albumin 25%) 25 gm IVPB Q12H [facility] Stop: 08/09/18 16:01 Benzonatate (Tessalon) 100 mg PO Q6H PRN PRN Reason: Cough Bisacodyl (Dulcolax) 10 mg PO DAILYPRN PRN PRN Reason: Constipation Calcium Carbonate (Tums) 1,000 mg PO Q4H PRN PRN Reason: Heartburn or Indigestion Last Admin: 08/04/18 17:14 Dose: 1,000 mg Clonidine (Catapres) 0.1 mg PO Q4H PRN PRN Reason: SBP > 160____ Guaifenesin (Robitussin Sf) 200 mg PO Q4H PRN PRN Reason: Cough Hydralazine HCl (Apresoline) 10 mg SLOW IVP Q4H PRN PRN Reason: SBP > 180 and HR < 70 Midodrine (Proamatine) 5 mg PO TID [facility] Last Admin: 08/08/18 15:08 Dose: 5 mg Morphine Sulfate (Morphine) 2 mg SLOW IVP Q4H PRN PRN Reason: severe pain Last Admin: 08/08/18 09:57 Dose: 2 mg Nitroglycerin (Nitrostat) 0.4 mg SL Q5MIN PRN PRN Reason: Chest Pain Ondansetron HCl (Zofran) 4 mg IVP Q6H PRN PRN Reason: Nausea/Vomiting Senna/Docusate Sodium (Senokot S) 2 tab PO BID PRN PRN Reason: Constipation Sodium Chloride ([place] Nasal [place] 0.65%) 0 ml EA NARE QIDPRN PRN PRN Reason: Nasal Congestion
[2018-08-08] MEDS: Albumin 25% 25 GM/100 ML BOT IVPB SCH (17:07)
[2018-08-08] MEDS ORDERED: Labetalol HCl 100 MG/20 ML VIAL ONE (18:49)
[2018-08-08] MEDS: Calcium Carbonate 500 MG ChewTAB PO PRN (19:26)
[2018-08-09] MEDS: Morphine 2 MG/ML SYRINGE SLOW IVP PRN ×4 (00:22→20:54)
[2018-08-09] MEDS ORDERED: ALPRAZolam 0.25 MG TAB PO SCH (01:30)
[2018-08-09] MEDS: Albumin 25% 25 GM/100 ML BOT IVPB SCH ×2 (04:05→15:50)
[2018-08-09] MEDS: Midodrine HCl 5 MG TAB PO SCH ×3 (07:57→20:48)
--- NOTE | 2018-08-09 11:00 | PRG ---
DATE OF SERVICE: 08/09/2018 SUBJECTIVE: The patient reports she is feeling a little bit better today. She is frustrated a bit because she wants to be able to get up and walk around the hospital and go down to the gift shop, etc. It is noted that the patient has a orthotic practitioner sitting in her bed and she has wanted to go smoke. OBJECTIVE: VITAL SIGNS: Temperature 98.2, pulse 91, BP 104/63, respirations 18, O2 saturation 100% on room air. GENERAL APPEARANCE: Age-appropriate female, very jaundiced. She is slightly sluggish, but awake and alert. HEART: Regular rate and rhythm. LUNGS: Clear. ABDOMEN: Soft, nontender. She has PleurX drain in place set to suction, draining a dark laney ascitic fluid. EXTREMITIES: No significant edema. IMPRESSION AND PLAN: 1. End-stage cirrhosis with recurrent ascites. The patient has PleurX catheter in place and draining p.r.n. 2. History of alcohol abuse leading to liver disease. 3. The patient's prognosis is very poor and pressures remain low, creatinine is high. Plan is for her to go to a nursing facility on hospice. Unfortunately, she is non-resourced and working through those processes with Case Management. 4. Acute on chronic kidney disease. The patient typically runs stage 3 kidney disease with GFR in the 50s. She is currently in the 20s. Again, looking at a hospice center. Job ID: [id number]
[2018-08-10] MEDS: Morphine 2 MG/ML SYRINGE SLOW IVP PRN ×5 (00:16→20:13)
[2018-08-10] MEDS: Midodrine HCl 5 MG TAB PO SCH ×3 (08:58→20:12)
[2018-08-10 13:37] VITALS: BMI 26.0
--- NOTE | 2018-08-10 13:56 | PDOC.PN ---
- Subjective Encounter Start Date: 08/10/18 Encounter Start Time: 13:54 Doing ok. Ambulating. - Objective Resuscitation Status - Order Detail: 08/02/18 16:48 Resuscitation Status Routine Resuscitation Status: DNAR: NO Resuscitation Discussed with: discussed with pt Vital Signs & Weight: Vital Signs (12 hours) Temp Pulse Resp BP Pulse Ox 08/10/18 07:32 98.3 F 74 16 102/62 97 08/10/18 04:00 97.8 F 80 16 81/50 L 99 Weight Admit Weight 159 lb 4.8 oz Weight 142 lb 6.4 oz I&O: 08/09/18 08/10/18 08/11/18 06:59 06:59 06:59 Intake Total 1252 Output Total 1100 600 Balance 152 -600 Result Diagrams: 08/03/18 07:03 08/03/18 07:03 Phys Exam - Physical Examination Constitutional: NAD Jaundice Respiratory: no wheezing, no rales, no rhonchi, clear to auscultation bilateral Cardiovascular: RRR, no significant murmur, no rub Gastrointestinal: soft, non-tender, no distention PleurX catheter with mild leakage and drainage to vacuum bottle. Musculoskeletal: no edema Psychiatric: normal affect Dx/Plan (1) Hyperbilirubinemia Code(s): E80.6 - OTHER DISORDERS OF BILIRUBIN METABOLISM Status: Acute (2) Cirrhosis, alcoholic Code(s): K70.30 - ALCOHOLIC CIRRHOSIS OF LIVER WITHOUT ASCITES Status: Chronic Qualifiers: Ascites presence: with ascites Qualified Code(s): K70.31 - Alcoholic cirrhosis of liver with ascites (3) End stage liver disease Code(s): K72.90 - HEPATIC FAILURE, UNSPECIFIED WITHOUT COMA Status: Chronic Comment: terminal.Intolerant to diuretics due to hypotension - Plan * End stage disease. Plan is for placement with hospice. CM working on that. Challenging in light of lack of resources and available family.
[2018-08-11] MEDS: Morphine 2 MG/ML SYRINGE SLOW IVP PRN ×5 (00:53→21:43)
[2018-08-11] MEDS: Midodrine HCl 5 MG TAB PO SCH ×3 (08:03→20:44)
--- NOTE | 2018-08-11 23:11 | PDOC.PN ---
- Subjective Encounter Start Date: 08/11/18 Encounter Start Time: 14:10 Feels ok. She has some discomfort when the suction is restarted. Meds help. Brief. - Objective Resuscitation Status - Order Detail: 08/02/18 16:48 Resuscitation Status Routine Resuscitation Status: DNAR: NO Resuscitation Discussed with: discussed with pt Vital Signs & Weight: Vital Signs (12 hours) Temp Pulse Resp BP Pulse Ox 08/11/18 20:00 99.0 F 93 18 106/64 96 Weight Admit Weight 159 lb 4.8 oz Weight 142 lb 6.4 oz I&O: 08/10/18 08/11/18 08/12/18 06:59 06:59 06:59 Intake Total 1036 800 Output Total 600 Balance -600 1036 800 Result Diagrams: 08/03/18 07:03 08/03/18 07:03 Phys Exam - Physical Examination Constitutional: NAD Juandice Respiratory: no wheezing, no rales, no rhonchi, clear to auscultation bilateral Cardiovascular: RRR, no significant murmur Gastrointestinal: soft, non-tender, no distention Pleurex catheter. Musculoskeletal: no edema Psychiatric: normal affect Dx/Plan (1) Hyperbilirubinemia Code(s): E80.6 - OTHER DISORDERS OF BILIRUBIN METABOLISM Status: Acute (2) Cirrhosis, alcoholic Code(s): K70.30 - ALCOHOLIC CIRRHOSIS OF LIVER WITHOUT ASCITES Status: Chronic Qualifiers: Ascites presence: with ascites Qualified Code(s): K70.31 - Alcoholic cirrhosis of liver with ascites (3) End stage liver disease Code(s): K72.90 - HEPATIC FAILURE, UNSPECIFIED WITHOUT COMA Status: Chronic Comment: terminal.Intolerant to diuretics due to hypotension - Plan * .
[2018-08-11] MEDS ORDERED: Lorazepam 0.5 MG TAB PO SCH (23:45)
[2018-08-12] MEDS: Morphine 2 MG/ML SYRINGE SLOW IVP PRN ×4 (02:17→22:01)
[2018-08-12] MEDS: Midodrine HCl 5 MG TAB PO SCH ×3 (10:47→21:00)
--- NOTE | 2018-08-12 11:39 | PDOC.PN ---
- Subjective Encounter Start Date: 08/12/18 Encounter Start Time: 11:36 Doing ok. Still has some discomfort with eating. Takes morphine prior and that helps. - Objective Resuscitation Status - Order Detail: 08/02/18 16:48 Resuscitation Status Routine Resuscitation Status: DNAR: NO Resuscitation Discussed with: discussed with pt Vital Signs & Weight: Vital Signs (12 hours) Temp Pulse Resp BP Pulse Ox 08/12/18 07:38 98.5 F 90 20 108/55 L 97 Weight Admit Weight 159 lb 4.8 oz Weight 142 lb 6.4 oz I&O: 08/11/18 08/12/18 08/13/18 06:59 06:59 06:59 Intake Total 1036 950 Balance 1036 950 Result Diagrams: 08/03/18 07:03 08/03/18 07:03 Phys Exam - Physical Examination Constitutional: NAD Respiratory: no wheezing, no rales, no rhonchi, clear to auscultation bilateral Cardiovascular: RRR, no significant murmur Gastrointestinal: soft, non-tender catheter in place. Musculoskeletal: no edema Dx/Plan (1) Hyperbilirubinemia Code(s): E80.6 - OTHER DISORDERS OF BILIRUBIN METABOLISM Status: Acute (2) Cirrhosis, alcoholic Code(s): K70.30 - ALCOHOLIC CIRRHOSIS OF LIVER WITHOUT ASCITES Status: Chronic Qualifiers: Ascites presence: with ascites Qualified Code(s): K70.31 - Alcoholic cirrhosis of liver with ascites (3) End stage liver disease Code(s): K72.90 - HEPATIC FAILURE, UNSPECIFIED WITHOUT COMA Status: Chronic Comment: terminal.Intolerant to diuretics due to hypotension - Plan * Difficult disposition. She thinks she might be able to function at home if the pain can be managed. * I am going to try to convert to po pain medication to see if we can get her off of IV pain meds and on to a more appropriate outpatient regimen. * Discussed with Pharmacist. Avoiding APAP, will go with oral MSIR. Crossover will be 10 mg.
[2018-08-12] MEDS: Calcium Carbonate 500 MG ChewTAB PO PRN ×2 (12:43→22:05)
--- NOTE | 2018-08-12 15:43 | PDOC.EVN ---
Event Note - Event Note Event Note: At patient and family request, I met with the family and patient again this afternoon. They would like take the patient back to [place] with them. There , they can set up hospice services. They are concerned about managing her pain on the [address]. The patient is concerned that the family will be " freaked out" when starts having pain. The male family member reassures her that he has been through stage IV lymphoma and understands pain issues. They have chosen [facility] in [place]. I explained that I am trying to change her over to po pain management today. If she does ok with po morphine , we can try to scale back to tramadol so that I can prescribe it for her. If she has to stay on morphine we will need other arrangements. Avoiding APAP and that limits our options. We discussed discharge on Tuesday so that the hospitalist could talk with the hospice doctor to ensure a smooth transition. Time spent in advanced care planning was 20 min.
--- NOTE | 2018-08-12 19:38 | EKG ---
Test Reason : Blood Pressure : / mmHG Vent. Rate : 084 BPM Atrial Rate : 084 BPM P-R Int : 156 ms QRS Dur : 084 ms QT Int : 396 ms P-R-T Axes : 073 -07 007 degrees QTc Int : 467 ms Normal sinus rhythm Low voltage QRS Cannot rule out Anterior infarct , age undetermined Abnormal ECG Confirmed by BERE SANTOS DO ([id number]), deputy editor in chief ZI PAVON ([id number]) on 08/12/2018 7:37:10 PM Referred By: Confirmed By:BERE SANTOS DO
[2018-08-13] MEDS ORDERED: ALPRAZolam 0.25 MG TAB PO SCH (01:00)
[2018-08-13] MEDS: Morphine 2 MG/ML SYRINGE SLOW IVP PRN ×2 (03:21→08:10)
[2018-08-13] MEDS: Midodrine HCl 5 MG TAB PO SCH ×3 (08:09→19:50)
[2018-08-13] MEDS ORDERED: HYDROcodone/Acetaminophen 10/325 mg Tablet PO PRN ×2 (10:44)
--- NOTE | 2018-08-13 11:38 | PRG ---
DATE OF SERVICE: 08/13/2018 SUBJECTIVE: The patient is doing relatively well today. She has no major concerns. She continues to leave the room and go outside to smoke. OBJECTIVE: VITAL SIGNS: Temperature 98.3, pulse 81, respirations 20, O2 saturation 97% on room air, BP 101/66. GENERAL APPEARANCE: Age-appropriate female, very jaundiced. No distress. HEART: Regular rate and rhythm. LUNGS: Clear. ABDOMEN: Soft, nontender, and nondistended. PleurX catheter is in place. There is modest saturation of the gauze around the site and persistent dark drainage from the drain into the vacuum container. EXTREMITIES: Only minimal trace edema. IMPRESSION AND PLAN: 1. End-stage alcoholic cirrhosis. 2. Hyperlipidemia. 3. Abdominal pain. 4. Chronic kidney disease stage 4. DISPOSITION: The patient currently is being managed with PleurX catheter draining the ascites fluid in order to keep her from having recurrent tense ascites. She has had some abdominal pain, which actually seems to be improving over time. She has been managed with IV morphine. The plan was to consider changing her over to p.o. morphine; however, in doing some homework regarding pain management in patients with cirrhosis, it appears that acetaminophen is not something to be avoided, but in fact is considered a first-line agent. I discussed the case with Dr. Fay with GI service who is familiar with Ms. Green as well and he agreed that it is perfectly reasonable to use Tylenol or combination agents in order to try to manage her pain. Therefore, I am going to switch her over to [place] 10/325 one to two p.o. q.6 hours p.r.n. and see if we can manage her pain effectively with that. We need to stay below 2 g of Tylenol per day, which should not be a concern given the dosing regimen. If we can get her pain adequately controlled with that, the plan is to hopefully be able to talk to her hospice providers in [place] so that she can leave with her sister tomorrow to drive back to [place] in [place] where her sister will be her caregiver and the patient will go on hospice services at that time, that will need to be arranged in the morning. Job ID: [id number]
[2018-08-13] MEDS: Calcium Carbonate 500 MG ChewTAB PO PRN (22:34)
[2018-08-14] MEDS: Midodrine HCl 5 MG TAB PO SCH (08:14)
[2018-08-14] MEDS ORDERED: Clopidogrel Bisulfate 75 MG TAB ONE (12:01)
--- NOTE | 2018-08-14 12:35 | PDOC.PN ---
- Subjective Encounter Start Date: 08/14/18 Encounter Start Time: 11:30 Subjective: Patient with abdominal pain, ok with norco. No other complaints. - Objective Resuscitation Status - Order Detail: 08/02/18 16:48 Resuscitation Status Routine Resuscitation Status: DNAR: NO Resuscitation Discussed with: discussed with pt CIARAN Reviewed: Yes Vital Signs & Weight: Vital Signs (12 hours) Temp Pulse Resp BP BP Pulse Ox 08/14/18 08:00 74 16 93/54 L 74 L 08/14/18 07:25 97.6 F 74 20 93/57 L 97 Weight Admit Weight 159 lb 4.8 oz Weight 142 lb 6.4 oz I&O: 08/13/18 08/14/18 08/15/18 06:59 06:59 06:59 Intake Total 1252 1100 Output Total 300 240 Balance 952 860 Result Diagrams: 08/03/18 07:03 08/03/18 07:03 Phys Exam - Physical Examination Constitutional: NAD HEENT: moist MMs icteric sclera Respiratory: no wheezing, no rales, no rhonchi Cardiovascular: RRR distended, TTP, Pleurex catheter in place and draining to vacume container Musculoskeletal: edema present Neurological: non-focal Psychiatric: normal affect, A&O x 3 Dx/Plan (1) End stage liver disease Code(s): K72.90 - HEPATIC FAILURE, UNSPECIFIED WITHOUT COMA Status: Chronic Comment: terminal. Intolerant to diuretics due to hypotension (2) Hypotension Status: Acute Comment: better. due to ESLD. stable on Midodrine (3) Ascites Code(s): R18.8 - OTHER ASCITES Status: Chronic Qualifiers: Ascites type: due to alcoholic cirrhosis Qualified Code(s): K70.31 - Alcoholic cirrhosis of liver with ascites Comment: PleurX Cathter for palliation being drained daily, chronic abdominal pain, switched to oral [place] for pain (4) Chronic kidney disease, stage 4 (severe) Code(s): N18.4 - CHRONIC KIDNEY DISEASE, STAGE 4 (SEVERE) Status: Chronic - Plan cont current plan of care Patient being discharged home with hospice, sister here and will drive her -: to stay with her in [place], [facility] will assist with -: care when they get there, I did talk with the hospice doctor over the -: phone and gave him a checkout, and all records from hospital faxed over. * . - Discharge Day Encounter end time: 12:00
[2018-08-14 13:15] VITALS: BP 108/64; TEMP 98.2
--- NOTE | 2018-08-15 05:04 | DIS ---
DATE OF ADMISSION: 08/02/2018 DATE OF DISCHARGE: 08/14/2018 PRIMARY CARE PHYSICIAN: Cristhian Cervantes. REASON FOR ADMISSION: Low blood pressure and abdominal pain. DISCHARGE DIAGNOSES: 1. End-stage alcoholic liver disease. 2. Chronic hypotension secondary to #1. 3. Severe ascites requiring daily drainage with PleurX catheter. 4. Chronic kidney disease, stage 4. 5. Hyperlipidemia. 6. Peripheral vascular disease. 7. Hypothyroidism. 8. Chronic anemia. PROCEDURES: PleurX catheter placement in the peritoneal cavity. CONSULTATIONS: General Surgery, Dr. Terrazas. SUMMARY OF HOSPITAL COURSE: This is a 58-year-old female with a history of advanced cirrhosis of liver secondary to alcohol abuse, also with hypertension, hyperlipidemia, hypothyroidism. She had recently been treated for Clostridium difficile colitis in the hospital, but continued having chronic abdominal pain. She also had persistent lower extremity swelling and not responding to diuretics and had to have repeated frequent paracentesis that was not controlling her symptoms. The patient was admitted to the hospital. She did have General Surgery consult and a PleurX catheter placed. The patient ended up having to have her peritoneal fluid drained daily in order to control her abdominal pain. She did decide to be a do not attempt resuscitation and eventually determined she would like to go home on hospice or if she was unable to get on inpatient hospice, hospice agencies here would require her to have a 24-hour caregiver. As a result, the patient's sister from [place] came and they determined that she would go home with her. [facility] in [place] was contacted and accepted her case and will assist with caring for her in sister's home. The patient did have persistent low blood pressures in the hospital preventing diuresis. She eventually had to be put on midodrine 3 times a day with adequate control of blood pressure and the patient was able to ambulate. She has not require any lactulose to prevent confusion or hepatic encephalopathy. She was controlled with morphine for pain control initially. On looking into outpatient pain medication options, Dr. Garcia did discuss her case with Dr. Fay given her severe end-stage liver disease and going on hospice. Dr. Fay agreed that it would be reasonable to use Tylenol containing combination agents in order to help her manage her pain and eventually, she was able to be switched over this with some decent control of pain. DISCHARGE MANAGEMENT: Discharge home with hospice. ACTIVITY: As tolerated. DIET: Fluid restricted diet. EQUIPMENT SUPPLIES: She has a PleurX catheter in place. We are clamping that and we will wrap up that to keep it clean. This can be used by her hospice agency for control of her symptoms when she arrives in [place]. Follow up with [facility] once she gets to [place]. DISCHARGE MEDICATIONS: 1. Hydrocodone 10/325 mg 1 to 2 tablets every 6 hours as needed for pain, 30 tablets dispensed. Use no more than 6 tablets per day. 2. Midodrine 5 mg 3 times a day, 90 tablets dispensed. 3. Continue Librium as needed. Job ID: [id number]
== END 2018-08-14 13:10 | disposition hospice, home (50) ==
LOC: ERS 12:36 → T4-B 15:40
PROVIDERS: ADMIT Internal Medicine; ATTEND Internal Medicine
PROC: 0WHG43Z Insertion of Infusion Device into Peritoneal Cavity, Percutaneous Endoscopic Approach (ICD-10-PCS; principal; 2018-08-03)
DX: K70.31 Alcoholic cirrhosis of liver with ascites (principal); K72.90 Hepatic failure, unspecified without coma; I95.89 Other hypotension; E78.5 Hyperlipidemia, unspecified; I73.9 Peripheral vascular disease, unspecified; E03.9 Hypothyroidism, unspecified; F17.210 Nicotine dependence, cigarettes, uncomplicated; I12.9 Hypertensive chronic kidney disease with stage 1 through stage 4 chronic kidney disease, or unspecified chronic kidney disease; N18.4 Chronic kidney disease, stage 4 (severe); D63.1 Anemia in chronic kidney disease; E80.6 Other disorders of bilirubin metabolism; F10.129 Alcohol abuse with intoxication, unspecified; R10.9 Unspecified abdominal pain; Z88.8 Allergy status to other drugs, medicaments and biological substances; Z88.2 Allergy status to sulfonamides; Z79.899 Other long term (current) drug therapy; Z98.890 Other specified postprocedural states; Z66 Do not resuscitate
CPT/HCPCS: 36415; 36416; 49082; 71045; 80048; 80053; 82042; 82140; 82945; 83605; 83615; 84157; 84484; 85025; 85060; 86140; 86850; 86900; 86901; 87040; 87070; 87205; 89051; 93005; 96361; 96365; 96375; 96376; C1729; G0378; J0670; J1956; J2001; J2270; J2405; J2543; J2704; J3010; P9047